=== PATIENT | female | born 1955 | race Caucasian/White ===

== ENCOUNTER 2016-08-18 14:36 | Outpatient (CLI) | payer MEDICAID | END 2016-08-18 14:37 | disposition home or self-care (01) | DX: S32.10XA Unspecified fracture of sacrum, initial encounter for closed fracture (principal); Z78.0 Asymptomatic menopausal state ==

== ENCOUNTER 2016-08-18 14:37 | Outpatient (CLI) | payer MEDICAID | END 2016-08-18 14:38 | disposition home or self-care (01) | DX: M47.896 Other spondylosis, lumbar region (principal); N28.1 Cyst of kidney, acquired; M54.5 Low back pain; M41.56 Other secondary scoliosis, lumbar region; S32.10XA Unspecified fracture of sacrum, initial encounter for closed fracture ==

== ENCOUNTER 2016-08-24 09:31 | Outpatient (CLI) | payer MEDICAID | END 2016-08-24 09:32 | disposition home or self-care (01) | DX: M54.5 Low back pain (principal) | CPT/HCPCS: 78306; A9503 ==

== ENCOUNTER 2016-11-23 23:11 | Outpatient (CLI) | payer MEDICAID | END 2016-11-23 23:59 | disposition EMS.NT | DX: F41.9 Anxiety disorder, unspecified (principal); M54.5 Low back pain ==

== ENCOUNTER 2016-11-24 08:47 | Outpatient (CLI) | payer MEDICAID | END 2016-11-24 08:48 | disposition EMS.NT | DX: M54.5 Low back pain (principal) ==

== ENCOUNTER 2016-11-24 08:57 | Emergency (ER) | payer MEDICAID | END 2016-11-24 11:02 | disposition left against medical advice (07) | DX: M54.9 Dorsalgia, unspecified (principal); Z53.21 Procedure and treatment not carried out due to patient leaving prior to being seen by health care provider ==

== ENCOUNTER 2016-12-25 11:42 | Emergency (ER) | payer MEDICAID ==
[2016-12-25] MEDS ORDERED: CALCIUM CARBONATE CHEW 500 MG TABLET PO STA (14:16)
[2016-12-25] MEDS ORDERED: CALCIUM CARBONATE CHEW 500 MG TABLET ONE (14:23)
[2016-12-25] MEDS ORDERED: GADOBUTROL 10 MMOL/10 ML VIAL IVP ONE (15:18)
[2016-12-25] MEDS ORDERED: DEXAMETHASONE 10 MG/ML VIAL IVP STA (16:44)
[2016-12-25] MEDS ORDERED: DEXAMETHASONE 10 MG/ML VIAL ONE (16:59)
== END 2016-12-25 17:20 | disposition home or self-care (01) ==
DX: C79.51 Secondary malignant neoplasm of bone (principal); M54.41 Lumbago with sciatica, right side; R03.0 Elevated blood-pressure reading, without diagnosis of hypertension; Z85.3 Personal history of malignant neoplasm of breast; Z90.10 Acquired absence of unspecified breast and nipple; Z92.3 Personal history of irradiation
CPT/HCPCS: 36415; 72158; 80048; 85025; 96374; 99283; 99284; A9270; A9585

== ENCOUNTER 2017-01-04 13:24 | Emergency (ER) | payer MEDICAID ==
--- NOTE | 2017-01-04 14:23 | ED Physician Documentation ---
PD HPI BACK PAIN - Stated complaint Stated Complaint: BACK PX,LUMP GROIN - Chief complaint Chief Complaint: Back Pain - History obtained from History obtained from: Patient - History of Present Illness Timing - onset: Yesterday (she has had ongoing back pain due to mets and had MRI last week to ensure no cord impingement. This was okay with showing mets. She fell yesterday and is having increased pain over baseline. No new neuro symptoms. Has also noted right inguinal lump that is tender.) Timing - duration: Days (1-2 days of increased pain.) Timing - details: Gradual onset (worse the past 2 days.), Still present Location: Lower Quality: Pain, Sharp, Aching Associated symptoms: Numbness (generally in legs but has been for few weeks.). 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 : None HEENT: None Psych: Anxiety Musculoskeletal: None Derm: None - Past Surgical History Past Surgical History: Yes General: Appendectomy /HUMAN RESOURCES BENEFITS COORDINATOR: Mastectomy - Present Medications Home Medications: Ambulatory Orders Medication Instructions Recorded Confirmed traMADol [Ultram] 50 mg PO Q4-6H PRN #15 tablet 12/25/16 01/04/17 Doxycycline Hyclate 100 mg PO BID #14 tablet 01/04/17 - Allergies Allergies/Adverse Reactions: Allergies Allergy/AdvReac Type Severity Reaction Status Date / Time epinephrine Allergy Unknown Verified 01/04/17 13:34 erythromycin base Allergy Unknown Verified 01/04/17 13:34 [Erythromycin Base] hydrocortisone Allergy Unknown Verified 01/04/17 13:34 [From Cortizone-10] lorazepam [From Ativan] Allergy Hallucinati Verified 01/04/17 13:34 ons Sulfa (Sulfonamide Allergy Unknown Verified 01/04/17 13:34 Antibiotics) trazodone Allergy Edema Verified 01/04/17 13:34 NSAIDS (Non-Steroidal AdvReac Unknown Verified 01/04/17 13:34 Anti-Inflamma - Social History Does the pt smoke?: No Smoking Status: Never smoker Does the pt drink ETOH?: No Does the pt have substance abuse?: No - Immunizations Immunizations are current?: Yes - POLST Patient has POLST: No PD ED PE NORMAL - Vitals Vital signs reviewed: Yes - General General: Alert and oriented X 3, Well developed/nourished, Other (appears in some pain but declines pain meds. ) - HEENT HEENT: Atraumatic - Neck Neck: Supple, no meningeal sign, No bony TTP, No adenopathy - Cardiac Cardiac: RRR, No murmur - Respiratory Respiratory: Clear bilaterally - Abdomen Abdomen: Normal bowel sounds, Soft, Non tender, Non distended - Female Female : Deferred - Rectal Rectal: Deferred - Back Back: No CVA TTP, Other (lower lockstitch back maker to palpation generally and in spine. ) - Derm Derm: Normal color, Warm and dry, Other (right inguinal area with small area of inflammation, redness, and tender. C/w small abscess about 1 cm size, confirmed with U/S. ) - Neuro Neuro: Alert and oriented X 3, No motor deficit, No sensory deficit, Normal speech Results - Vitals Vitals: Oxygen O2 Source Room air - Labs Labs: Microbiology 01/04/17 15:28 Wound Culture - Final Abdomen Escherichia Coli Morganella Morganii Ssp.meli - Rads (name of study) lumbar CT Radiology: Prelim report reviewed (mets seen as prior. No fractures seen. ) Procedures - Abscess I&D (location) right inguinal Preparation: Confirmed with ultrasound, Lidocaine 1%. No: With epi Incision: Needle aspiration Other: Pt tolerated well, Dressing applied, Antibiotic prescribed PD MEDICAL DECISION MAKING - ED course Complexity details: reviewed results (CT showing no signs of new fractures. inguinal area aspirated with purulence 2.5 ml obtained. Will start abx pending culture. ), considered differential, d/w patient Departure - Departure Disposition: 01 Home, Self Care Clinical Impression: Metastatic breast cancer, Inguinal abscess Back pain Qualifiers: Back pain location: low back pain Chronicity: chronic Back pain laterality: bilateral Sciatica presence: without sciatica Qualified Code(s): M54.5 - Low back pain Accidental fall Qualifiers: Encounter type: initial encounter Qualified Code(s): W19.XXXA - Unspecified fall, initial encounter Condition: Stable Record reviewed to determine appropriate education?: Yes Instructions: ED Abscess IandD, ED Low Back Pain Injury Follow-Up: Arnel Head MD [Primary Care Provider] - Prescriptions: Doxycycline Hyclate 100 mg PO BID #14 tablet Comments: Continue Tramadol for pain, add Tylenol 650 mg 3-4 times daily. For the groin abscess, see if it gets better over the next 1-2 days with just draining it. If it stays tender,etc then add Doxycycline antibiotic. Warm compresses to the area a few times daily to help promote blood flow to the area for healing. Discharge Date/Time: 01/04/17 17:30
[2017-01-04] MEDS ORDERED: LIDOCAINE 1% 50 ML MDV SUBQ STA (14:58)
[2017-01-04] MEDS ORDERED: LIDOCAINE 1% 2 ML VIAL ONE ×2 (15:08→16:06)
[2017-01-04] MEDS ORDERED: cefTRIAXone 1 GM VIAL IM STA (15:38)
[2017-01-04] MEDS ORDERED: cefTRIAXone 1 GM VIAL ONE (16:06)
--- NOTE | 2017-01-04 16:46 | CT Report ---
EXAM: CT LUMBAR SPINE WITHOUT CONTRAST EXAM DATE: 01/04/2017 03:55 PM. CLINICAL HISTORY: Recent fall, worsening back pain. Metastatic breast cancer. COMPARISONS: Prior lumbar CT 09/11/2016. Lumbar MRI 12/25/2016. TECHNIQUE: Thin-section axial images were acquired of the lumbar spine from T12 to S1 without contras t. Post-processing: Coronal and sagittal reformats. Other: None. In accordance with CT protocol optimization, one or more of the following dose reduction techniques w ere utilized for this exam: automated exposure control, adjustment of mA and/or KV based on patient s ize, or use of iterative reconstructive technique. FINDINGS: Alignment: Mild thoracolumbar curvature convex right. 2 mm posterior subluxation L1 on L2 unchanged. Otherwise normal alignment. Bones: Five [id number] lumbar vertebral bodies are present. Sclerotic focus at the upper anterio r aspect of L1 is unchanged. New 5 mm sclerotic lesion within the upper left aspect of the L2 vertebr al body. Previously seen lesion at the right anterolateral aspect of the L2 vertebral body is now scl erotic measuring approximately 2.3 x 1.2 x 2.6 cm, unchanged in size. The previously seen predominant ly lytic lesion involving the L3 left posterolateral aspect of the vertebral body, pedicle, articular facets and left transverse process isn't now predominantly sclerotic. Overall size of the lesion and degree of bone expansion of the left-sided posterior elements unchanged. New 4 mm sclerotic lesion a t the anterior right aspect of the L4 vertebral body. New 5 mm and 3 mm adjacent sclerotic lesions at the anterior aspect of the L5 vertebral body. New sclerotic lesions at the upper midline sacrum nick ure 3.5 and 5 mm diameter. New sclerotic lesion at the upper left sacral ala 8 mm. Previously seen ly tic lesions on both sides of the upper right sacroiliac joint now sclerotic in appearance. Degenerati ve sclerotic change at the left sacroiliac joint. Large partially visualized expansile predominantly sclerotic lesion involving the right ilium also demonstrates increased sclerotic change compared to t he prior pelvis CT. Disk Levels/Facets: T12-L1: Annual disk bulge. Mild central canal stenosis. L1-L2: Mild retrolisthesis. Annular disk bulge. Mild central canal stenosis. L2-L3: Slight annular disk bulge. Mild facet arthropathy. No significant stenosis. L3-L4: Mild bilateral degenerative facet arthropathy. Annular disk bulge. Mild central canal stenosis . Mild left foraminal stenosis. L4-L5: Annular disk bulge. Moderate degenerative facet arthropathy. L5-S1: Previous posterior decompression. Moderate right greater than left degenerative facet arthropa thy. Moderate right foraminal stenosis. Musculature: Mild atrophy of the lower paraspinous musculature. Other: A pelvic kidney with associated large central cyst or dilated renal pelvis not appreciably reina nged from recent MRI, only partially visualized. IMPRESSION: 1. Interval increase in number of sclerotic lesions consistent with progression of bony metastatic di sease compared to prior CT. 2. Some of the previously seen larger lytic lesions now appear mostly sclerotic which may represent s ome healing change. 3. No discrete fracture identified by CT. [facility] Referring Provider Line: [phone] SITE ID: [id number]
[2017-01-04 17:43] VITALS: BP 136/89
== END 2017-01-04 17:30 | disposition home or self-care (01) ==
LOC: ED 13:24
DX: L02.214 Cutaneous abscess of groin (principal); C79.81 Secondary malignant neoplasm of breast; M54.5 Low back pain; W01.0XXA Fall on same level from slipping, tripping and stumbling without subsequent striking against object, initial encounter; K21.9 Gastro-esophageal reflux disease without esophagitis
CPT/HCPCS: 10160; 72131; 87070; 87077; 87205; 96372; 99283; 99284

== ENCOUNTER 2017-01-06 17:22 | Emergency (ER) | payer MEDICAID ==
[2017-01-06] MEDS ORDERED: BUFFERED LIDOCAINE 10 ML SYRINGE ONE (17:42)
--- NOTE | 2017-01-06 17:56 | ED Physician Documentation ---
History of Present Illness - Stated complaint Stated Complaint: HIP ABCESS - Chief complaint Chief Complaint: General - History obtained from History obtained from: Patient - History of Present Illness Timing: Other (61-year-old woman with metastatic breast cancer, status post radiation to the lumbar spine 5 weeks ago, seen here a few days ago with an inguinal abscess that was needle aspirated. Culture reviewed, 2 organisms. She feels like she is worse. 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 : None HEENT: None Psych: Anxiety Musculoskeletal: None Derm: None - Past Surgical History Past Surgical History: Yes General: Appendectomy /TEXTILES PRINTER: Mastectomy - Present Medications Home Medications: Ambulatory Orders Medication Instructions Recorded Confirmed traMADol [Ultram] 50 mg PO Q4-6H PRN #15 tablet 12/25/16 01/06/17 Doxycycline Hyclate 100 mg PO BID #14 tablet 01/04/17 01/06/17 - Allergies Allergies/Adverse Reactions: Allergies Allergy/AdvReac Type Severity Reaction Status Date / Time epinephrine Allergy Unknown Verified 01/04/17 13:34 erythromycin base Allergy Unknown Verified 01/04/17 13:34 [Erythromycin Base] hydrocortisone Allergy Unknown Verified 01/04/17 13:34 [From Cortizone-10] lorazepam [From Ativan] Allergy Hallucinati Verified 01/04/17 13:34 ons Sulfa (Sulfonamide Allergy Unknown Verified 01/04/17 13:34 Antibiotics) trazodone Allergy Edema Verified 01/04/17 13:34 NSAIDS (Non-Steroidal AdvReac Unknown Verified 01/04/17 13:34 Anti-Inflamma - Social History Does the pt smoke?: No Smoking Status: Never smoker Does the pt drink ETOH?: No Does the pt have substance abuse?: No - Immunizations Immunizations are current?: Yes - POLST Patient has POLST: No PD ED PE NORMAL - Vitals Vital signs reviewed: Yes - General General: Alert and oriented X 3, No acute distress - Derm Derm: Other (2 cm pointed abscess in the right inguinal crease without cellulitis.) - Neuro Neuro: Alert and oriented X 3, Normal speech - Psych Psych: Normal mood, Normal affect Results - Vitals Vitals: Vital Signs - 24 hr 01/06/17 17:30 Temperature 36.6 C Heart Rate 59 L Respiratory 14 Rate Blood Pressure 146/86 H O2 Saturation 100 Oxygen O2 Source Room air Procedures - Abscess I&D (location) rright inguinal Preparation: Chlorhexadine, Lidocaine 1% Incision: Incised with scalpel, Purulent drainage, Loculations broken. No: Culture obtained (Already done) Other: Pt tolerated well. No: Antibiotic prescribed (doesn't want to) Departure - Departure Disposition: Home, Self Care Clinical Impression: Inguinal abscess Condition: Good Record reviewed to determine appropriate education?: Yes Instructions: ED Abscess IandD Comments: Return Sunday for recheck, sooner if worse. Your blood pressure was elevated today on check in to the emergency department. This does not mean that you have hypertension, it is a common phenomenon to check into the emergency department and have elevated blood pressure. I recommend that you see your primary care physician within the week to have it rechecked when you're feeling better.
[2017-01-06 18:02] VITALS: BP 148/83
== END 2017-01-06 18:11 | disposition home or self-care (01) ==
LOC: ED 17:22
DX: L02.214 Cutaneous abscess of groin (principal); C79.81 Secondary malignant neoplasm of breast; R03.0 Elevated blood-pressure reading, without diagnosis of hypertension; K21.9 Gastro-esophageal reflux disease without esophagitis
CPT/HCPCS: 10060; 99283

== ENCOUNTER 2017-01-06 21:09 | Outpatient (CLI) | payer MEDICAID | END 2017-01-06 21:10 | disposition EMS.NT | LOC: EMS 21:09 | PROVIDERS: ATTEND Surgery | DX: R53.1 Weakness (principal); R00.0 Tachycardia, unspecified; W18.39XA Other fall on same level, initial encounter; Y93.E1 Activity, personal bathing and showering; Y92.031 Bathroom in apartment as the place of occurrence of the external cause ==

== ENCOUNTER 2017-01-08 12:03 | Emergency (ER) | payer MEDICAID ==
--- NOTE | 2017-01-08 13:15 | ED Physician Documentation ---
PD HPI SKIN - Stated complaint Stated Complaint: FOLLOW UP TO GROIN ABSCESS - Chief complaint Chief Complaint: Wound - History obtained from History obtained from: Patient - History of Present Illness Timing - onset: Other (Here for recheck of groin abscess, overall from that perspective she is doing better with continued drainage and less pain. Also has concerns about generalized weakness since radiation to the spine a few weeks ago with 2 falls at home. No significant injuries though, it was seen here after the first fall and had imaging of her spine which was negative. 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 : None HEENT: None Psych: Anxiety Musculoskeletal: None Derm: None - Past Surgical History Past Surgical History: Yes General: Appendectomy /SUPERVISOR PIGMENT MAKING: Mastectomy - Present Medications Home Medications: Ambulatory Orders Medication Instructions Recorded Confirmed traMADol [Ultram] 50 mg PO Q4-6H PRN #15 tablet 12/25/16 01/08/17 Shower Head/Seat 1 unit TD ONCE #1 01/08/17 Walker 1 each MC ONCE #1 each 01/08/17 - Allergies Allergies/Adverse Reactions: Allergies Allergy/AdvReac Type Severity Reaction Status Date / Time epinephrine Allergy Unknown Verified 01/08/17 12:16 erythromycin base Allergy Unknown Verified 01/08/17 12:16 [Erythromycin Base] hydrocortisone Allergy Unknown Verified 01/08/17 12:16 [From Cortizone-10] lorazepam [From Ativan] Allergy Hallucinati Verified 01/08/17 12:16 ons Sulfa (Sulfonamide Allergy Unknown Verified 01/08/17 12:16 Antibiotics) trazodone Allergy Edema Verified 01/08/17 12:16 NSAIDS (Non-Steroidal AdvReac Unknown Verified 01/08/17 12:16 Anti-Inflamma - Social History Does the pt smoke?: No Smoking Status: Never smoker Does the pt drink ETOH?: No Does the pt have substance abuse?: No - Immunizations Immunizations are current?: Yes - POLST Patient has POLST: No PD ED PE NORMAL - Vitals Vital signs reviewed: Yes - General General: Alert and oriented X 3, No acute distress - Abdomen Abdomen: Soft, Non tender - Female Female : Other (Right inguinal abscess is open and still draining, it was much smaller and the incision was getting smaller so I did pack it with quarter- inch packing during exam. No cellulitis.) - Back Back: No CVA TTP, No spinal TTP - Extremities Extremities: Other (The patient has equal and normal patellar and Achilles reflexes bilaterally. Normal sensation in all areas of the legs. Patient denies saddle anesthesia. Normal strength in flexion and extension at the ankles, knees and flexion of the hips.) - Neuro Neuro: Alert and oriented X 3, Normal speech - Psych Psych: Normal mood, Normal affect Results - Vitals Vitals: Vital Signs - 24 hr 01/08/17 12:15 Temperature 36.6 C Heart Rate 98 Respiratory 14 Rate Blood Pressure 127/88 H O2 Saturation 100 Oxygen O2 Source Room air PD MEDICAL DECISION MAKING - ED course ED course: Abscess was packed, but overall is doing better. Follow up continued was advised. We will have her see the social security assessor and she needed a prescription for a shower head and a walker which were done. Departure - Departure Disposition: 01 Home, Self Care Clinical Impression: Inguinal abscess, Metastatic breast cancer, Weakness Accidental fall Qualifiers: Encounter type: initial encounter Qualified Code(s): W19.XXXA - Unspecified fall, initial encounter Condition: Good Record reviewed to determine appropriate education?: Yes Instructions: ED Abscess IandD Prescriptions: Shower Head/Seat 1 unit TD ONCE #1 Walker 1 each MC ONCE #1 each Comments: Recheck here or with your pinion sorter in 2-3 days. BP recheck with your primary care at next visit.
[2017-01-08 14:36] VITALS: BP 121/67
== END 2017-01-08 14:36 | disposition home or self-care (01) ==
LOC: ED 12:03
DX: L02.214 Cutaneous abscess of groin (principal); C79.81 Secondary malignant neoplasm of breast; R53.1 Weakness; K21.9 Gastro-esophageal reflux disease without esophagitis
CPT/HCPCS: 99282; 99283

== ENCOUNTER 2017-02-21 13:27 | Outpatient (CLI) | payer MEDICAID | END 2017-02-21 13:28 | disposition critical access hospital (66) | LOC: EMS 13:27 | PROVIDERS: ATTEND Surgery | DX: M54.5 Low back pain (principal) | CPT/HCPCS: A0425; A0429 ==

== ENCOUNTER 2017-02-21 13:32 | Emergency (ER) | payer MEDICAID ==
[2017-02-21] MEDS ORDERED: ACETAMINOPHEN 1,000 MG/100 ML 100 ML IV STA (14:09)
[2017-02-21] MEDS ORDERED: LIDOCAINE PATCH 5% TOP STA (14:09)
--- NOTE | 2017-02-21 14:16 | ED Physician Documentation ---
History of Present Illness - Stated complaint Stated Complaint: LOW BACK PX - Chief complaint Chief Complaint: Back Pain - Additonal information Additional information: hx from pt 61 female known metastatic breast cancer with mets to spine and pelvis has had radiation tx for same 2 m ago also txed with decadron for pain for mets after the radiation but that caused profound weakness does not want to take narcotics tramadol made her confused only taking tylenol pain is acutely worse x 3 days as is numbness ands weakness RLE > LLE no incontinence no fever no abd pain no new fall or injury to ppt these sx she would like info about nerve block injections by anesthesia Review of Systems Constitutional: denies: Fever, Chills Throat: denies: Sore throat Cardiac: denies: Chest pain / pressure GI: denies: Abdominal Pain, Nausea, Vomiting : denies: Incontinent Musculoskeletal: reports: Back pain Neurologic: reports: Focal weakness (sara LE R > L), Numbness (RLE diffusely). 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 HEENT: None Psych: Anxiety Musculoskeletal: None Derm: None - Past Surgical History Past Surgical History: Yes General: Appendectomy /DRIP BOX TENDER: Mastectomy - Present Medications Home Medications: Ambulatory Orders Medication Instructions Recorded Confirmed Shower Head/Seat 1 unit TD ONCE #1 01/08/17 01/30/17 Walker 1 each MC ONCE #1 each 01/08/17 01/30/17 Gabapentin [Neurontin] 300 mg PO HS #30 capsule 02/21/17 Lidocaine Patch 5% [Lidoderm Patch] 1 each TOP DAILY PRN #10 patch 02/21/17 - Allergies Allergies/Adverse Reactions: Allergies Allergy/AdvReac Type Severity Reaction Status Date / Time epinephrine Allergy Unknown Verified 01/08/17 12:16 erythromycin base Allergy Unknown Verified 01/08/17 12:16 [Erythromycin Base] hydrocortisone Allergy Unknown Verified 01/08/17 12:16 [From Cortizone-10] lorazepam [From Ativan] Allergy Hallucinati Verified 01/08/17 12:16 ons Sulfa (Sulfonamide Allergy Unknown Verified 01/08/17 12:16 Antibiotics) trazodone Allergy Edema Verified 01/08/17 12:16 NSAIDS (Non-Steroidal AdvReac Unknown Verified 01/08/17 12:16 Anti-Inflamma - Social History Does the pt smoke?: No Smoking Status: Never smoker Does the pt drink ETOH?: No Does the pt have substance abuse?: No - Immunizations Immunizations are current?: Yes - POLST Patient has POLST: No PD ED PE NORMAL - Vitals Vital signs reviewed: Yes - General General: Alert and oriented X 3, Other (tearful in pain) - HEENT HEENT: PERRL - Cardiac Cardiac: RRR - Respiratory Respiratory: No respiratory distress, Clear bilaterally - Abdomen Abdomen: Soft, Non tender - Back Back: Other (no focal bony TTP, very TTP low right lumbar pelvis region, no deformity swelling or warmth, able to sit up unassisted) - Extremities Extremities: No calf tenderness / cord (sara ccalves swollen and tender (X 3 weeks per pt, no eval yet)) - Neuro Neuro: Alert and oriented X 3, No motor deficit (hip flex 1/5 R 3/5 left partly due to pain, denies saddle anesthesia but RLE diffusely weak, no clonus). No: No sensory deficit Results - Vitals Vitals: Vital Signs - 24 hr 02/21/17 02/21/17 13:38 15:18 Temperature 36.8 C Heart Rate 95 85 Respiratory 18 20 Rate Blood Pressure 136/82 H 143/75 H O2 Saturation 96 100 Oxygen O2 Source Room air - Labs Labs: Laboratory Tests 02/21/17 17:05 Sodium 138 Potassium 3.2 L Chloride 102 Carbon Dioxide 26 Anion Gap 10.0 BUN 25 H Creatinine 0.7 Estimated GFR (MDRD) 85 L Glucose 238 H Calcium 9.6 - Rads (name of study) CT L spine and pelvis Radiology: See rad report (inc sclerosis and healing met focus L3, new areas sclerosis T10 L2 L4 L5 S1 S2 could be form prior now visble or could be progression of met dz) sara LE dopplers Radiology: See rad report (no DVT) PD MEDICAL DECISION MAKING - ED course ED course: spoke to pts oncologist Dr Bahena and she will submit pain and palliative care consults next week or pt can call [facility] and speak to Syed Guaman sooner and rec trying pt on gabapentin if she is reluctant to try narcotics recent MRI showed no intra dural or epidrual dz and no cauda equina Departure - Departure Disposition: 01 Home, Self Care Clinical Impression: Metastatic breast cancer Back pain Qualifiers: Back pain location: low back pain Chronicity: chronic Back pain laterality: bilateral Sciatica presence: without sciatica Qualified Code(s): M54.5 - Low back pain; G89.29 - Other chronic pain Condition: Good Instructions: Bone Metastasis, ED Neck Back Pain General Follow-Up: Nikolas Bahena MD [Primary Care Provider] - Prescriptions: Lidocaine Patch 5% [Lidoderm Patch] 1 each TOP DAILY PRN #10 patch PRN Reason: Pain Gabapentin [Neurontin] 300 mg PO HS #30 capsule Comments: I spoke to your oncologist She will submit consults for recommendation regarding your pain next week - you can also call the [facility] and speak to the nurse rate manager there regarding these consults. In the meantime, oncology recommends trying gabapentin for the pain and I also prescribed lidocaine patches Your chemistry labs were Ok except slightly low potassium which was replaced and an elevated blood sugar which could be due to your recent steroids - please make sure your sugar gets rechecked the next time you have labs drawn Try debrox available over the counter for your ear wax And please get your blood pressure rechecked too - it was high today
[2017-02-21] MEDS ORDERED: ACETAMINOPHEN 1,000 MG/100 ML 100 ML IV ONE (14:47)
[2017-02-21] MEDS ORDERED: LIDOCAINE PATCH 5% TOP ONE (14:47)
--- NOTE | 2017-02-21 15:42 | CT Preliminary Report ---
Exam: CT Pelvis W/O IMPRESSION: 1. Stable appearance of metastatic bone lesions at the pelvis and proximal femurs. No acute fracture. [facility] SITE ID: [id number]
--- NOTE | 2017-02-21 15:44 | CT Report ---
EXAM: CT BONY PELVIS WITHOUT CONTRAST EXAM DATE: 02/21/2017 03:05 PM. CLINICAL HISTORY: Metastatic bone disease. Breast cancer. Pelvic pain. Right lower extremity pain and weakness. COMPARISON: Pelvis MRI from 02/08/2017. TECHNIQUE: Thin-section axial images were acquired of the pelvis without contrast. Post-processing: C oronal and sagittal reformats. Other: None. In accordance with CT protocol optimization, one or more of the following dose reduction techniques w ere utilized for this exam: automated exposure control, adjustment of mA and/or KV based on patient s ize, or use of iterative reconstructive technique. FINDINGS: Degenerative facet arthropathy of the visualized lower lumbar spine. Stable small sclerotic lesions at L4 and L5 vertebral body. Stable sclerotic lesions at the upper sac rum. Stable sclerotic lesion at the posterior medial aspect of the right iliac bone. Stable sclerotic mildly expansile lesion at the right iliac bone which extends in the right acetabulum, right issue h im, and right pubic bone. Stable sclerotic lesions at the left iliac bone, ischial, and pubic bone. S table lesion at the left femoral head and intertrochanteric portion of the proximal left femur. Stabl e sclerotic lesion of the right femoral neck. No acute fracture. Musculature: Normal. No fatty atrophy. Pelvic Cavity: As seen on the previous study, the left kidney is located at the midline pelvis. There is a large cyst or dilated pelvis at the pelvic kidney which is unchanged. No free fluid or lymphade nopathy. Other: No lymphadenopathy. No free air or free fluid. The other visualized soft tissues are unremarka ble. IMPRESSION: 1. Stable appearance of metastatic bone lesions at the pelvis and proximal femurs. No acute fracture. [facility] Referring Provider Line: [phone] SITE ID: [id number]
--- NOTE | 2017-02-21 16:03 | CT Preliminary Report ---
Exam: CT Lumbar Spine W/O IMPRESSION: 1. Since a comparison study, increase in sclerosis and healing of the metastatic focus involving the expanded left L3 transverse process. L3 vertebral body posteriorly also shows some increased density and sclerosis indicating some healing. 2. New focal areas of abnormal punctate sclerosis are seen at T10, L2, L4, L5, S1 and S2. These areas visualized sclerosis are probably areas of treated disease which are more easily seen compared to th e prior exam. This can also be secondary to progression of metastatic disease. [facility] SITE ID: [id number]
[2017-02-21] MEDS ORDERED: ONDANSETRON 4 MG/2 ML VIAL IVP STA (16:11)
[2017-02-21] MEDS ORDERED: HYDROmorphone 1 MG/ML SYRINGE IVP STA (16:11)
--- NOTE | 2017-02-21 16:26 | Ultrasound Preliminary Report ---
Exam: US Duplex Ext Veins Bilateral IMPRESSION: No evidence for deep venous thrombosis bilaterally. [facility] SITE ID: [id number]
--- NOTE | 2017-02-21 16:29 | Ultrasound Report ---
EXAM: BILATERAL LOWER EXTREMITY VENOUS ULTRASOUND EXAM DATE: 02/21/2017 04:08 PM. CLINICAL HISTORY: Bilateral lower extremity swelling pain discolor metastatic cancer. COMPARISON: None. TECHNIQUE: Real-time sonographic vascular imaging was performed by the sas bi developer through the lower extremities utilizing both color-flow and Doppler spectral analysis. Multiple scheduling representative static i mages were saved for review. FINDINGS: Right: Common Femoral Vein (CFV): Normal. CFV-GSV Junction: Normal. Profunda Femoral Vein (PFV): Normal. Femoral Vein (FV) Prox: Normal. Femoral Vein (FV) Mid: Normal. Femoral Vein (FV) Dist: Normal. Popliteal Vein: Normal. Posterior Tibial Veins: Normal. Peroneal Veins: Normal. Left: Common Femoral Vein (CFV): Normal. CFV-GSV Junction: Normal. Profunda Femoral Vein (PFV): Normal. Femoral Vein (FV) Prox: Normal. Femoral Vein (FV) Mid: Normal. Femoral Vein (FV) Dist: Normal. Popliteal Vein: Normal. Posterior Tibial Veins: Normal. Peroneal Veins: Normal. Other: None. IMPRESSION: No evidence for deep venous thrombosis bilaterally. [facility] Referring Provider Line: [phone] SITE ID: [id number]
--- NOTE | 2017-02-21 16:29 | CT Report ---
EXAM: CT LUMBAR SPINE WITHOUT CONTRAST EXAM DATE: 02/21/2017 02:42 PM. CLINICAL HISTORY: Known metastatic breast cancer mets to spine and pelvis. COMPARISONS: CT study from 09/11/2016. TECHNIQUE: Thin-section axial images were acquired of the lumbar spine from T12 to S1 without contras t. Post-processing: Coronal and sagittal reformats. Other: None. In accordance with CT protocol optimization, one or more of the following dose reduction techniques w ere utilized for this exam: automated exposure control, adjustment of mA and/or KV based on patient s ize, or use of iterative reconstructive technique. FINDINGS: Alignment: Normal. No scoliosis or spondylolisthesis. Bones: Five fku-goo-nutnsip lumbar vertebral bodies are present. Since the comparison study, there has been some increased sclerosis and healing of a metastatic focus involving the expanded left L3 transverse process. The L3 vertebral body posteriorly also shows some increased sclerosis, indicating some healing is occurring. Please also note that there are new areas of abnormal punctate sclerosis involving T10, L2, L4, L5, S 1 and S2. These are best seen on the sagittals. No evidence for pathologic fractures. Disk Levels/Facets: T12-L1: Unremarkable. L1-L2: Unremarkable. L2-L3: Prominent facets. No central or foraminal stenosis. L3-L4: Prominent facets, broad-based disk bulge and ligamentum flavum. Moderate central stenosis. No foraminal narrowing. L4-L5: Hypertrophic facets and ligament flavum, broad-based disk bulge. Moderate central stenosis. L5-S1: Broad-based disk bulge. Prominent facets. Musculature: Moderate fatty atrophy of the multifidus musculature. Other: The visualized pelvic cavity is unremarkable. IMPRESSION: 1. Since the comparison study, increase in sclerosis and healing of the metastatic focus involving th e expanded left L3 transverse process. L3 vertebral body posteriorly also shows some increased densit y and sclerosis indicating some healing. 2. New focal areas of abnormal punctate sclerosis are seen at T10, L2, L4, L5, S1 and S2. These areas of visualized sclerosis are probably areas of treated disease which are more easily seen compared to the prior exam. This could also be secondary to progression of metastatic disease. [facility] Referring Provider Line: [phone] SITE ID: [id number]
[2017-02-21] MEDS ORDERED: CYCLOBENZAPRINE 10 MG TABLET PO STA (16:39)
[2017-02-21] MEDS ORDERED: CYCLOBENZAPRINE 10 MG TABLET PO ONE (16:41)
[2017-02-21 17:18] LABS: CALCIUM 9.6 mg/dL (8.5-10.3); CREATININE 0.7 mg/dL (0.4-1.0); POTASSIUM 3.2 mmol/L (3.5-5.0)
[2017-02-21] MEDS ORDERED: POTASSIUM CHLORIDE 20 MEQ TABLET PO STA (18:34)
[2017-02-21] MEDS ORDERED: GABAPENTIN 100 MG CAPSULE PO STA (18:34)
[2017-02-21] MEDS ORDERED: LIDOCAINE MPF 1%-EPI 1:200000 30 ML VIAL ONE (18:43)
[2017-02-21] MEDS ORDERED: POTASSIUM CHLORIDE 20 MEQ TABLET PO ONE (18:48)
[2017-02-21 19:00] VITALS: BP 150/79
== END 2017-02-21 19:04 | disposition home or self-care (01) ==
LOC: EDUNIT# → ED 13:32
DX: M54.5 Low back pain (principal); G89.29 Other chronic pain; E87.6 Hypokalemia; R73.9 Hyperglycemia, unspecified; R03.0 Elevated blood-pressure reading, without diagnosis of hypertension; C50.919 Malignant neoplasm of unspecified site of unspecified female breast; C79.51 Secondary malignant neoplasm of bone; C79.89 Secondary malignant neoplasm of other specified sites; Z90.10 Acquired absence of unspecified breast and nipple
CPT/HCPCS: 36415; 72131; 72192; 80048; 93970; 96374; 99283; 99284; A9270; J0131

== ENCOUNTER 2017-02-22 18:17 | Outpatient (CLI) | payer MEDICAID | END 2017-02-22 18:18 | disposition critical access hospital (66) | LOC: EMS 18:17 | PROVIDERS: ATTEND Surgery | DX: M25.551 Pain in right hip (principal); M54.9 Dorsalgia, unspecified; W18.39XA Other fall on same level, initial encounter; Y92.039 Unspecified place in apartment as the place of occurrence of the external cause | CPT/HCPCS: A0425; A0429 ==

== ENCOUNTER 2017-02-22 18:21 | Emergency (ER) | payer MEDICAID ==
--- NOTE | 2017-02-22 19:27 | XRAY Preliminary Report ---
Exam: XR Hip w/Pelvis 2-3V RT IMPRESSION: Sclerotic metastases. No fracture seen. [facility] SITE ID: [id number]
--- NOTE | 2017-02-22 19:29 | XRAY Report ---
EXAM: RIGHT HIP AND PELVIS RADIOGRAPHY EXAM DATE: 02/22/2017 07:16 PM. HISTORY: Mets to bones, fell. COMPARISONS: 09/11/[address] TECHNIQUE: 1 view of the pelvis and 1 view of the hip. FINDINGS: Bones: Areas of sclerotic metastases seen throughout the pelvis and both hips. No fracture seen. Joints: The bilateral hip, pubis symphysis, and sacroiliac joints are preserved. Soft Tissues: Normal. No soft tissue swelling. IMPRESSION: Sclerotic metastases. No fracture seen. [facility] Referring Provider Line: [phone] SITE ID: [id number]
--- NOTE | 2017-02-22 20:26 | ED Physician Documentation ---
History of Present Illness - Stated complaint Stated Complaint: R HIP PN - Chief complaint Chief Complaint: Ext Problem - Additonal information Additional information: hx from pt 61 f breast cancer mets to bone had radiation tx for same had MRI last week seen by me for pain yesterday and had CT case discussed witrh her oncologist who will submit a pain management consult next week and recommended pt take gabapentin pt given rx for gabapentin but did not fill it yet tonight she set her dinner down on the couch and then fell over backwards striking right lateral hip on corner of a chest pain to R hip did hit her head but not PAZ or LOC, has right sided but no bony neck pain able to ambulate BIBA pt states she uses her walker but EMS states walker was folded up in her closet Review of Systems Cardiac: denies: Chest pain / pressure GI: denies: Abdominal Pain Musculoskeletal: reports: Neck pain (R side), Joint pain (R hip) Neurologic: denies: Focal weakness, Numbness PD PAST MEDICAL HISTORY - Past Medical History Cardiovascular: None Respiratory: None Neuro: None Endocrine/Autoimmune: None GI: GERD 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 : None HEENT: None Psych: Anxiety Musculoskeletal: None Derm: None - Past Surgical History Past Surgical History: Yes General: Appendectomy /WASH TANK TENDER: Mastectomy - Present Medications Home Medications: Ambulatory Orders Medication Instructions Recorded Confirmed Shower Head/Seat 1 unit TD ONCE #1 01/08/17 01/30/17 Walker 1 each MC ONCE #1 each 01/08/17 01/30/17 Gabapentin [Neurontin] 300 mg PO HS #30 capsule 02/21/17 Lidocaine Patch 5% [Lidoderm Patch] 1 each TOP DAILY PRN #10 patch 02/21/17 - Allergies Allergies/Adverse Reactions: Allergies Allergy/AdvReac Type Severity Reaction Status Date / Time epinephrine Allergy Unknown Verified 01/08/17 12:16 erythromycin base Allergy Unknown Verified 01/08/17 12:16 [Erythromycin Base] hydrocortisone Allergy Unknown Verified 01/08/17 12:16 [From Cortizone-10] lorazepam [From Ativan] Allergy Hallucinati Verified 01/08/17 12:16 ons Sulfa (Sulfonamide Allergy Unknown Verified 01/08/17 12:16 Antibiotics) trazodone Allergy Edema Verified 01/08/17 12:16 NSAIDS (Non-Steroidal AdvReac Unknown Verified 06/05/17 12:16 Anti-Inflamma - Social History Does the pt smoke?: No Smoking Status: Never smoker Does the pt drink ETOH?: No Does the pt have substance abuse?: No - Immunizations Immunizations are current?: Yes - POLST Patient has POLST: No PD ED PE NORMAL - Vitals Vital signs reviewed: Yes - General General: Alert and oriented X 3 - HEENT HEENT: Atraumatic - Neck Neck: No bony TTP - Cardiac Cardiac: RRR - Respiratory Respiratory: No respiratory distress, Clear bilaterally - Abdomen Abdomen: Soft, Non tender - Extremities Extremities: Other (TTP lateral R hip no bruise seen, not short or rotated, able to range, MSV intact) Results - Vitals Vitals: Vital Signs - 24 hr 02/22/17 02/22/17 18:26 19:50 Temperature 36.8 C Heart Rate 87 89 Respiratory 18 16 Rate Blood Pressure 132/85 H 133/84 H O2 Saturation 100 100 Oxygen O2 Source Room air PD MEDICAL DECISION MAKING - ED course ED course: pt declines narcotics declines gabapentin would like ofirmev again pt has many questions "what did my MRI show " "why are my legs weak" "what are the side effects of steroids and gabapentin" etc but when i try to answer them she says "but my oncologist said . . . " and when I asked if she had filled my gabapentin rx she said no but the gabapentin her oncologist prescribed 2 months ago is still ready for her at the store she is worried about being weak but does not want to go to assisted living or rehab SNF, she has already met with about these issues in any case no fx seen, she feels better, she has rx for pain and I provided her a copy of her MRi to help answer her concerns and questions [facility] Departure - Departure Disposition: 01 Home, Self Care Clinical Impression: Right hip pain, Metastatic breast cancer, Weakness Fall Qualifiers: Encounter type: initial encounter Qualified Code(s): W19.XXXA - Unspecified fall, initial encounter Condition: Fair Instructions: ED Prevention Fall, ED Contusion Hip Follow-Up: Nikolas Bahena MD [Primary Care Provider] - Comments: Take the medication as prescribed by your oncologist Always use your walker Follow up with the [facility] clinic for the pain management referral Please get your blood pressure rechecked as well - it was high today
[2017-02-22] MEDS ORDERED: ACETAMINOPHEN 1,000 MG/100 ML 100 ML IV STA (20:31)
[2017-02-22] MEDS ORDERED: ACETAMINOPHEN 1,000 MG/100 ML 100 ML IV ONE (20:32)
[2017-02-22 21:37] VITALS: BP 145/74
== END 2017-02-22 21:34 | disposition home or self-care (01) ==
LOC: EDUNIT# → ED 18:21
DX: C50.919 Malignant neoplasm of unspecified site of unspecified female breast (principal); C79.51 Secondary malignant neoplasm of bone; R53.1 Weakness; W19.XXXA Unspecified fall, initial encounter; K21.9 Gastro-esophageal reflux disease without esophagitis
CPT/HCPCS: 73502; 96365; 99283; J0131

== ENCOUNTER 2017-03-05 12:54 | Outpatient (CLI) | payer MEDICAID | END 2017-03-05 12:55 | disposition critical access hospital (66) | LOC: EMS 12:54 | PROVIDERS: ATTEND Surgery | DX: M79.606 Pain in leg, unspecified (principal) | CPT/HCPCS: A0425; A0429 ==

== ENCOUNTER 2017-03-05 12:57 | Emergency (ER) | payer MEDICAID ==
--- NOTE | 2017-03-05 14:20 | ED Physician Documentation ---
History of Present Illness - Stated complaint Stated Complaint: LEG NUMB - Chief complaint Chief Complaint: Back Pain - Additonal information Additional information: hx from pt 62 female breast cancer met to spine and pelvis had steroids and rad tx for same sx continue to worsen she has had MRI's 02/[address] scans 02/21 showing mets, fx not seen not able to be fully ruled out 2/2 mets, no abscess sx have continued to progress pt is still awaiting referrals to spine, pain management, and [facility] now to pt where she is completely numb R leg and "fuzzy" feeling in left leg and she is so weak she cannot safely stand, her legs just give out on her she has fallen again but back into couch s injury no saddle anesthesia or incont no fever cough NVD she called [facility] and was referred to ED again - 3rd time I have seen her for same this month Review of Systems Constitutional: denies: Fever, Chills Throat: denies: Sore throat Cardiac: denies: Chest pain / pressure Respiratory: denies: Dyspnea, Cough GI: denies: Abdominal Pain, Nausea, Vomiting, Diarrhea : denies: Incontinent Musculoskeletal: reports: Back pain (low lumbar/sacrum), Joint pain (R hip) Neurologic: reports: Focal weakness, Numbness Endocrine: denies: Easy bruising / bleeding Immunocompromised: denies: Immunocompromised PD PAST MEDICAL HISTORY - Past Medical History Past Medical History: Yes Cardiovascular: None Respiratory: None Neuro: None Endocrine/Autoimmune: None GI: GERD 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 - Past Surgical History Past Surgical History: Yes General: Appendectomy /LATEX SPOOLER: Mastectomy - Present Medications Home Medications: Ambulatory Orders Medication Instructions Recorded Confirmed Acetaminophen [Tylenol Extra 1,000 mg PO Q6HR PRN 02/27/17 02/27/17 Strength] Lidocaine Patch 5% [Lidoderm Patch] 1 each TOP DAILY PRN #10 patch 03/05/17 - Allergies Allergies/Adverse Reactions: Allergies Allergy/AdvReac Type Severity Reaction Status Date / Time epinephrine Allergy Unknown Verified 01/08/17 12:16 erythromycin base Allergy Unknown Verified 01/08/17 12:16 [Erythromycin Base] hydrocortisone Allergy Unknown Verified 01/08/17 12:16 [From Cortizone-10] lorazepam [From Ativan] Allergy Hallucinati Verified 01/08/17 12:16 ons Sulfa (Sulfonamide Allergy Unknown Verified 01/08/17 12:16 Antibiotics) trazodone Allergy Edema Verified 01/08/17 12:16 NSAIDS (Non-Steroidal AdvReac Unknown Verified 01/08/17 12:16 Anti-Inflamma - Social History Does the pt smoke?: No Smoking Status: Never smoker Does the pt drink ETOH?: No Does the pt have substance abuse?: No - Immunizations Immunizations are current?: Yes - POLST Patient has POLST: No PD ED PE NORMAL - Vitals Vital signs reviewed: Yes - HEENT HEENT: Atraumatic - Neck Neck: Supple, no meningeal sign - Cardiac Cardiac: RRR - Respiratory Respiratory: No respiratory distress - Abdomen Abdomen: Soft, Non tender - Derm Derm: Normal color - Extremities Extremities: No deformity, Other (mild sara LE edema) - Neuro Neuro: Alert and oriented X 3, bag turner 2-12 intact, Other (upper ext nl motor and sensation, lower ext right hip flex 1/5, knee ext 1/5 foot dorsi planta and great toe ext 4/5, no clonuc, patelllar DTR 1/4, diffusely dec sensation to light touch, LLE, hip flex knee ext 4/5, foot dorsi plantar and great toe 5/5 no clonus, patellar DTR 2/4, sensation slightly decreased diffusely ) Results - Vitals Vitals: Vital Signs - 24 hr 03/05/17 03/05/17 13:04 16:16 Temperature 37.2 C Heart Rate 97 95 Respiratory 18 18 Rate Blood Pressure 134/77 H 127/85 H O2 Saturation 100 100 Oxygen O2 Source Room air - Rads (name of study) MRI L spine w/wo Radiology: See rad report (stable metastatic osseous disease, no new or progressiv marrow edmea or pathologic fx, no epidural or paraspinous ST metastatic dz, stable spondylosis) MRI pelvis w/wo Radiology: See rad report (multifocal osseous metastatic dz with large lesions involving right ilium and ischium, no change from prior, new mm edema R gluteus and hip adducters and iliacus could be interval mm strain, no fx) PD MEDICAL DECISION MAKING - ED course ED course: pt advised that MRI are essentially same as before and no clear answer why she cannot walk, specifically that the ER role was to rule out a new emergent process requiring intervention such as surgery or antibiotics and none was found today SW met with pt to arrange for pt to go to [facility] for care since she cannot safely ambulate but in the end pt decided she would hire more in home help for herself and have her sister come assist her and get a wheelchair in addition to her 2 walkers Departure - Departure Disposition: Home, Self Care Clinical Impression: Metastatic breast cancer, Weakness, Right hip pain Back pain Qualifiers: Back pain location: low back pain Chronicity: acute Back pain laterality: right Sciatica presence: unspecified whether sciatica present Qualified Code(s) : M54.5 - Low back pain Condition: Good Instructions: ED Chronic Pain Management Follow-Up: Nikolas Bahena MD [Primary Care Provider] - Prescriptions: Lidocaine Patch 5% [Lidoderm Patch] 1 each TOP DAILY PRN #10 patch PRN Reason: Pain Comments: We recommended that you go to [facility] for your safety since you report that you cannot walk, but you have chosen to go home for now Please follow up with your [facility] team for ongoing care, referral, authorizations, questions etc Continue Tylenol and lidocaine patches as needed for pain The older adult social work specialist has provided you with local resource information and you have told me you have two walkers and plan on getting a wheelchair
[2017-03-05] MEDS ORDERED: GADOBUTROL 10 MMOL/10 ML VIAL IVP ONE (15:28)
[2017-03-05] MEDS ORDERED: ACETAMINOPHEN 325 MG TABLET PO STA (16:14)
[2017-03-05] MEDS ORDERED: ACETAMINOPHEN 325 MG TABLET PO ONE (16:20)
--- NOTE | 2017-03-05 16:20 | MRI Report ---
EXAM: MRI LUMBAR SPINE WITHOUT AND WITH CONTRAST EXAM DATE: 03/05/2017 03:44 PM. CLINICAL HISTORY: Metastatic breast cancer to the spine and pelvis. Patient cannot walk. Bilateral le g weakness and right leg numbness. COMPARISONS: 02/21/2017, 02/08/2017. TECHNIQUE: Multiplanar, multisequence T1-weighted and fluid-sensitive sequences of the lumbar spine f rom T12 to S1 before and after administration of intravenous contrast. IV contrast: 10 cc gadavist. O ther: None. FINDINGS: Spinal Cord: The conus terminates at L1. No signal abnormality in the visualized spinal cord. Alignment: Stable mild scoliosis. No interval listhesis. Bone Marrow: Five wmn-bld-qxjvuhn lumbar vertebral bodies are assumed. Multifocal sclerotic osseous m etastatic disease appears stable since prior CT and MRI dating back to 02/08/2017, as well as since a dditional prior MRI dating back to 08/18/2016. Disk Levels/Facets: T12-L1: Stable disk narrowing with small posterior central protrusion and extrusion, stable. No grace e. L1-L2: Stable disk narrowing with bulge and osteophytes. Stable facet arthropathy. No stenosis. L2-L3: Stable facet arthropathy bilaterally and mild bilateral foraminal stenoses, unchanged. L3-L4: Stable mild bulge and moderate bilateral facet arthropathy. No central stenosis. Stable bilate ral foraminal stenoses. L4-L5: Stable minimal bulge with moderate bilateral facet arthropathy. No change. Stable bilateral fo raminal stenoses, right greater than left. L5-S1: Stable mild bulge and moderate bilateral facet arthropathy. No change. Spinal Canal: No enhancing masses within the spinal canal. No epidural abscess. Musculature: Normal. No edema, abnormal enhancement, or fatty atrophy. 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 IMPRESSION: 1. Stable osseous metastatic disease. 2. No new or progressive marrow edema or pathologic fracture. No evidence of epidural or paraspinous soft tissue metastatic disease. 3. Stable multilevel degenerative spondylosis. Comment: The following findings are so common in adults without low back pain that while we report th eir presence, they must be interpreted with caution and in the context of the clinical situation. (Re jordin Coello et al, Spine 2001) Prevalence of findings in patients without low back pain: Disk degeneration (any evidence): 92% Disk desiccation/T2 signal loss: 83% Disk height loss: 56% Disk bulge: 64% Disk protrusion: 32% Annular tear/high intensity zone: 38% [facility] Referring Provider Line: [phone] SITE ID: [id number]
--- NOTE | 2017-03-05 16:24 | MRI Preliminary Report ---
Exam: MRI Pelvis W/WO IMPRESSION: 1. Multifocal osseous metastatic disease with a large lesion involving much of the right ilium and is chium. No change since prior. 2. New mild muscle edema in the right gluteus and hip adductors as well as right iliacus. Findings bynum ggest interval muscle strain. 3. No evidence of fracture. [facility] MUSCULOSKELETAL RADIOLOGY SECTION SITE ID: [id number]
--- NOTE | 2017-03-05 16:27 | MRI Report ---
EXAM: MRI PELVIS WITHOUT AND WITH CONTRAST EXAM DATE: 03/05/2017 03:45 PM. CLINICAL HISTORY: Metastatic breast cancer. Low back and right hip pain. Patient cannot walk. COMPARISON: CT lumbar spine 02/21/2017, MR lumbar spine 02/08/2017 and 08/18/2016. Pelvic MRI 02/08/[address] 09/11/2016. TECHNIQUE: Multiplanar, multisequence T1-weighted and fluid-sensitive sequences of the pelvis before and after administration of intravenous contrast. IV contrast: 10 cc gadolinium contrast. Other: None . FINDINGS: Bones: Multifocal osseous metastatic disease is unchanged in size from prior studies dating back to 0 09/11/2016. Mild heterogeneous enhancement of the large right ilium/ischium lesion. No new lesions are seen. No evidence of pathologic fracture. Lower Lumbar Spine: Unremarkable. Right Hip: No fracture. Stable bony metastases. Left Hip: No fracture. Stable bony metastatic disease. Symphysis Pubis: Unremarkable. Musculature: New muscle edema and mild enhancement right gluteus ashley and right hip adductors as w ell as the right iliacus. Pelvic Cavity: Pelvic kidney with large cyst, stable. Otherwise visualized pelvic organs are unremark able. Other: The visualized sciatic nerves are unremarkable. No bursitis. The subcutaneous tissues are unre markable. No abscess or cellulitis. IMPRESSION: 1. Multifocal osseous metastatic disease with a large lesion involving much of the right ilium and is chium. No change since prior. 2. New mild muscle edema in the right gluteus and hip adductors as well as right iliacus. Findings bynum ggest interval muscle strain. 3. No evidence of fracture. [facility] MUSCULOSKELETAL RADIOLOGY SECTION Referring Provider Line: [phone] SITE ID: [id number]
[2017-03-05 18:36] VITALS: BP 124/87
== END 2017-03-05 18:28 | disposition home or self-care (01) ==
LOC: EDUNIT# → ED 12:57
DX: C50.919 Malignant neoplasm of unspecified site of unspecified female breast (principal); C79.51 Secondary malignant neoplasm of bone; R53.1 Weakness; M25.551 Pain in right hip; M54.5 Low back pain; K21.9 Gastro-esophageal reflux disease without esophagitis
CPT/HCPCS: 72158; 72197; 99283; 99285; A9270; A9585

== ENCOUNTER 2017-03-16 09:54 | Outpatient (CLI) | payer MEDICAID | END 2017-03-16 09:55 | disposition critical access hospital (66) | LOC: EMS 09:54 | PROVIDERS: ATTEND Surgery | DX: S79.911A Unspecified injury of right hip, initial encounter (principal); W01.10XA Fall on same level from slipping, tripping and stumbling with subsequent striking against unspecified object, initial encounter | CPT/HCPCS: A0425; A0429 ==

== ENCOUNTER 2017-03-16 10:02 | Emergency (ER) | payer MEDICAID ==
[2017-03-16 10:53] LABS: BILIRUBIN,URINE NEGATIVE (NEGATIVE); UA CHARGE (STRIP ONLY) YES; UR CULTURE IF IND NOT INDICATED
--- NOTE | 2017-03-16 11:43 | CT Preliminary Report ---
Exam: CT Pelvis W/O IMPRESSION: 1. Extensive sclerotic metastases. Probable nondisplaced fracture of the right body of pubis. Subtle fractures through the metastatic foci are difficult to exclude due to the ongoing bony destruction. 2. No significant change in the soft tissues since the prior MRI on March 05. [facility] SITE ID: [id number]
--- NOTE | 2017-03-16 11:47 | CT Preliminary Report ---
Exam: CT Head W/O IMPRESSION: 1. No acute intracranial abnormality is identified. 2. No acute fracture. [facility] SITE ID: [id number]
--- NOTE | 2017-03-16 11:49 | CT Report ---
EXAM: CT HEAD EXAM DATE: 03/16/2017 11:04 AM. CLINICAL HISTORY: Fall with closed head injury. COMPARISON: None. TECHNIQUE: Multiaxial CT images were obtained from the foramen magnum to the vertex. IV contrast: Non e. Reformats: Coronal. In accordance with CT protocol optimization, one or more of the following dose reduction techniques w ere utilized for this exam: automated exposure control, adjustment of mA and/or KV based on patient s ize, or use of iterative reconstructive technique. FINDINGS: Parenchyma: No acute vascular insult or acute parenchymal hemorrhage. No midline shift. No mass effec t. Extraaxial Spaces: Normal for age. No subdural or epidural collections identified. Ventricles: Normal in size and position. Sinuses: Imaged paranasal sinuses, orbits, and mastoids show no significant abnormality. Bones: No evidence of fracture or calvarial defect. Other: Globes and orbits are unremarkable. IMPRESSION: 1. No acute intracranial abnormality is identified. 2. No acute fracture. [facility] Referring Provider Line: [phone] SITE ID: [id number]
--- NOTE | 2017-03-16 11:50 | CT Report ---
EXAM: CT BONY PELVIS WITHOUT CONTRAST EXAM DATE: 03/16/2017 11:05 AM. CLINICAL HISTORY: Fall with pain right pelvis. COMPARISON: Multiple priors including prior pelvic x-ray and MRI from 03/05/2017. TECHNIQUE: Thin-section axial images were acquired of the pelvis without contrast. Post-processing: C oronal and sagittal reformats. Other: None. In accordance with CT protocol optimization, one or more of the following dose reduction techniques w ere utilized for this exam: automated exposure control, adjustment of mA and/or KV based on patient s ize, or use of iterative reconstructive technique. FINDINGS: Bones: There is extensive sclerotic change throughout the bony pelvis and both femora, consistent wit h known metastatic disease. There is a large sclerotic lesion involving most of the right ilium. The cortex is markedly irregular and subtle fractures may be difficult to detect. There is a thin lucent line in the sagittal plane through the right body of pubis, image 3/182, suggestive of a nondisplaced fracture. There are no other visible fractures, but subtle fractures through metastatic foci may be difficult to define. Sacroiliac Joints: Mild degenerative change of both sacroiliac joints. Symphysis Pubis: Unremarkable. Moderate bilateral hip osteoarthritis. Musculature: Normal. No fatty atrophy. Pelvic Cavity: There is a cystic lesion in the pelvis, as on the prior study. Other: No lymphadenopathy. No free air or free fluid. The other visualized soft tissues are unremarka ble. IMPRESSION: 1. Extensive sclerotic metastases. Probable nondisplaced fracture of the right body of pubis. Subtle fractures through the metastatic foci are difficult to exclude due to the ongoing bony destruction. 2. No significant change in the soft tissues since the prior MRI on March 05. [facility] Referring Provider Line: [phone] SITE ID: [id number]
--- NOTE | 2017-03-16 12:49 | ED Physician Documentation ---
PD HPI Fall - Stated complaint Stated Complaint: RIGHT HIP PAIN S/P FALL - HIT HEAD - Chief complaint Chief Complaint: Back Pain - History obtained from History obtained from: Patient, EMS - History of Present Illness Mechanism of injury: Lost balance Fall distance: Standing position Where injury occurred: Home Timing - onset: Today (just prior to arrival.) Injury(ies) location: Head, Right Lower Extremity Quality of pain: Pain Associated symptoms: No: LOC, Neck pain, Nausea / vomiting - Additional information Additional information: The patient is a somewhat debilitated female who arrives via ambulance after falling at home. She has a history of breast cancer with bony metastases to the pelvis. She is normally in a wheelchair and uses a walker when ambulating. This morning she walked to her refrigerator without the walker, and when she turned around she fell, hitting her head and landing on her right pelvic region. She denies loss of consciousness, neck pain, nausea or vomiting. She does not use anticoagulant medication. She complains of pain in the right occipital region of her head, and pain in her right sacral region. She has chronic pain in the right sacral region from the metastatic disease, but the pain today is worse than her chronic pain. Review of Systems Constitutional: denies: Fever Ears: denies: Tinnitus/ringing Nose: denies: Congestion Throat: denies: Sore throat Cardiac: denies: Chest pain / pressure Respiratory: denies: Dyspnea, Cough GI: denies: Abdominal Pain, Nausea, Vomiting : denies: Dysuria Skin: denies: Rash Musculoskeletal: reports: Back pain (chronically), Extremity pain (right pelvic region). denies: Neck pain Neurologic: reports: Generalized weakness, Head injury. 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 : None HEENT: None Psych: Anxiety Musculoskeletal: None Derm: None Other Past Medical History: Breast CA mets to sacrum - Past Surgical History Past Surgical History: Yes General: Appendectomy /ANALYSIS SPECIALIST: Mastectomy - Present Medications Home Medications: Ambulatory Orders Medication Instructions Recorded Confirmed Acetaminophen [Tylenol Extra 1,000 mg PO Q6HR PRN 02/27/17 03/16/17 Strength] Lidocaine Patch 5% [Lidoderm Patch] 1 each TOP DAILY PRN #10 patch 03/05/1706/22 Melatonin 3 mg PO 03/16/17 03/16/17 - Allergies Allergies/Adverse Reactions: Allergies Allergy/AdvReac Type Severity Reaction Status Date / Time dexamethasone Allergy Unknown Verified 03/16/17 11:33 epinephrine Allergy Unknown Verified 01/08/17 12:16 erythromycin base Allergy Unknown Verified 01/08/17 12:16 [Erythromycin Base] hydrocortisone Allergy Unknown Verified 01/08/17 12:16 [From Cortizone-10] lorazepam [From Ativan] Allergy Hallucinati Verified 01/08/17 12:16 ons Sulfa (Sulfonamide Allergy Unknown Verified 01/08/17 12:16 Antibiotics) trazodone Allergy Edema Verified 01/08/17 12:16 NSAIDS (Non-Steroidal AdvReac Unknown Verified 01/08/17 12:16 Anti-Inflamma - Living Situation Living Situation: reports: Alone Living Arrangement: reports: At home - Social History Does the pt smoke?: No Smoking Status: Never smoker Does the pt drink ETOH?: No Does the pt have substance abuse?: No - Immunizations Immunizations are current?: Yes - POLST Patient has POLST: No PD ED PE NORMAL - Vitals Vital signs reviewed: Yes (Initially hypertensive.) - General General: Alert and oriented X 3, Other (Overweight, and deconditioned.) - HEENT HEENT: PERRL, EOMI, Pharynx benign, Other (There is tenderness to palpation in the right occipital region of the scalp, with slight swelling. There is no bony step-off, and no break in the integument.) - Neck Neck: No bony TTP, No adenopathy, No JVD - Cardiac Cardiac: RRR, No murmur - Respiratory Respiratory: No respiratory distress, Clear bilaterally - Abdomen Abdomen: Soft, Non tender - Back Back: No CVA TTP, No spinal TTP - Derm Derm: No rash - Extremities Extremities: No edema, No calf tenderness / cord, Other (There is tenderness to palpation over the right iliac wing. The hip is not tender to palpation, and there is no discomfort with internal or external rotation of the hip.) - Neuro Neuro: Alert and oriented X 3, No motor deficit, No sensory deficit, Normal speech Results - Vitals Vitals: Vital Signs - 24 hr 03/16/17 18:32 Heart Rate 90 Respiratory 16 Rate Blood Pressure 131/64 H O2 Saturation 100 Oxygen O2 Source Room air - Labs Labs: Laboratory Tests 03/16/17 10:40 Urine Color YELLOW Urine Clarity CLEAR Urine pH 6.0 Ur Specific [place] <=1.005 Urine Protein NEGATIVE Urine Glucose (UA) NEGATIVE Urine Ketones NEGATIVE Urine Occult Blood NEGATIVE Urine Nitrite NEGATIVE Urine Bilirubin NEGATIVE Urine Urobilinogen 0.2 (NORMAL) Ur Leukocyte Esterase NEGATIVE Ur Microscopic Review NOT INDICATED Urine Culture Comments NOT INDICATED - Rads (name of study) Pelvis CT Radiology: Prelim report reviewed, EMP read contemporaneously, See rad report ( Extensive sclerotic metastases. Probable nondisplaced fracture of the right body of the pubis. Subtle fractures to the metastatic foci are difficult to exclude due to the ongoing bony destruction. No significant change in the soft tissues since the prior MRI on March 05.) Head CT w/o Radiology: Prelim report reviewed, EMP read contemporaneously, See rad report ( No acute intracranial abnormalities identified. No acute fracture.) PD MEDICAL DECISION MAKING - ED course Complexity details: reviewed old records, reviewed results, re-evaluated patient , considered differential, d/w patient, d/w hearing consultant ED course: The patient's presentation is significant for fall in a mobility challenged person with breast cancer with bony metastases. Her injuries include scalp contusion, without intracranial hemorrhage or skull fracture noted on CT scan of the head. CT scan of the pelvis reveals suspected nondisplaced fracture to the right pubis associated with severe metastatic disease. Treatment in the emergency department included administration of acetaminophen 1 g orally. The patient declined any stronger pain medication. Mylanta 30 mL was administered orally. The medical data entry clerk was consulted regarding placement in an adult care facility given the patient's increased pain and decreased mobility. However the patient was very motivated to return home, and was resistant to placement in a care facility. She demonstrated the ability to ambulate, bearing weight on her right leg. She reports that the pain is not significantly worse now than it is chronically. She has tramadol at home which has been previously prescribed. I discussed with her the importance of outpatient follow-up, as well as potentially worrisome signs or symptoms that should prompt reevaluation in the emergency department. Departure - Departure Disposition: 01 Home, Self Care Clinical Impression: Bony metastasis Fall Qualifiers: Encounter type: initial encounter Qualified Code(s): W19.XXXA - Unspecified fall, initial encounter Nondisplaced fracture of pelvis Qualifiers: Encounter type: initial encounter Pelvic bone location: pubis Fracture type: closed Laterality: right Qualified Code(s): S32.501A - Unspecified fracture of right pubis, initial encounter for closed fracture Condition: Stable Instructions: ED Fx Pelvis Follow-Up: Arnel Head MD [Primary Care Provider] - Comments: Continue tramadol as previously prescribed if needed for pain. Let pain be your guide to activity level. Follow up with your primary physician. Call to schedule appointment. Return to the emergency department if you develop increasing pain, recurrent falling, or otherwise worsening symptoms. Discharge Date/Time: 03/16/17 18:42
[2017-03-16] MEDS ORDERED: ACETAMINOPHEN 500 MG TABLET PO STA (13:46)
[2017-03-16] MEDS ORDERED: ACETAMINOPHEN 500 MG TABLET PO ONE (13:54)
[2017-03-16] MEDS ORDERED: MAG HYDROX/AL HYDROX/SIMETH 30 ML UDC PO STA (14:02)
[2017-03-16] MEDS ORDERED: MAG HYDROX/AL HYDROX/SIMETH 30 ML UDC ONE (14:04)
[2017-03-16 18:33] VITALS: BP 131/64
== END 2017-03-16 18:42 | disposition home or self-care (01) ==
LOC: EDUNIT# → ED 10:02
DX: S32.501A Unspecified fracture of right pubis, initial encounter for closed fracture (principal); Z85.3 Personal history of malignant neoplasm of breast; C79.51 Secondary malignant neoplasm of bone; W18.30XA Fall on same level, unspecified, initial encounter
CPT/HCPCS: 70450; 72192; 81003; 99283; 99284; A9270; 81001; 87086

== ENCOUNTER 2017-03-22 17:28 | Outpatient (CLI) | payer MEDICAID | END 2017-03-22 17:29 | disposition EMS.NT | LOC: EMS 17:28 | PROVIDERS: ATTEND Surgery | DX: Z03.89 Encounter for observation for other suspected diseases and conditions ruled out (principal); W19.XXXA Unspecified fall, initial encounter; Y92.009 Unspecified place in unspecified non-institutional (private) residence as the place of occurrence of the external cause ==

== ENCOUNTER 2017-04-12 15:42 | Outpatient (CLI) | payer MEDICAID | END 2017-04-12 15:43 | disposition EMS.NT | LOC: EMS 15:42 | PROVIDERS: ATTEND Surgery | DX: Z03.89 Encounter for observation for other suspected diseases and conditions ruled out (principal); W01.0XXA Fall on same level from slipping, tripping and stumbling without subsequent striking against object, initial encounter; Y93.E1 Activity, personal bathing and showering; Y92.031 Bathroom in apartment as the place of occurrence of the external cause ==

== ENCOUNTER 2017-04-18 07:34 | Outpatient (CLI) | payer MEDICAID | END 2017-04-18 07:35 | disposition critical access hospital (66) | LOC: EMS 07:34 | PROVIDERS: ATTEND Surgery | DX: M25.551 Pain in right hip (principal); W18.39XA Other fall on same level, initial encounter; Y92.031 Bathroom in apartment as the place of occurrence of the external cause | CPT/HCPCS: A0425; A0429 ==

== ENCOUNTER 2017-04-18 07:39 | Emergency (ER) | payer MEDICAID ==
[2017-04-18] MEDS ORDERED: ACETAMINOPHEN 1,000 MG/100 ML 100 ML IV STA (07:47)
[2017-04-18] MEDS ORDERED: ACETAMINOPHEN 1,000 MG/100 ML 100 ML IV ONE (07:57)
[2017-04-18] MEDS ORDERED: SODIUM CHLORIDE FLUSH 0.9% 10 ML SYRINGE IVP ONE (07:59)
--- NOTE | 2017-04-18 08:00 | ED Physician Documentation ---
History of Present Illness - Stated complaint Stated Complaint: GLF - Chief complaint Chief Complaint: Ext Problem - Additonal information Additional information: hx from pt 62 female known breast cancer with mets to spine and pelvis s/p radiation and steroid tx for same 2/2 above she has weakness and numbness to her RLE and frequently falls this has been extensively worked up with CT amd MRI and pt has been offered SNF placement numerous times but prefers to remain at home - has gotten in home care 3-4 hr a day as well as PT or OT most weekdays today when went to the bathroom and missed the grab bar as she got up and fell back injuring her R hip and then also hitting her head no blood thinners no PAZ + neck pain severe R hip pain worse than her baseline with shortening - also dec sensation "feels frizzy" but this is not new other than the fall she has been well - no fever cough NVD urinary sx etc Review of Systems Constitutional: denies: Fever, Chills Cardiac: denies: Chest pain / pressure Respiratory: denies: Dyspnea GI: denies: Abdominal Pain, Nausea, Vomiting, Diarrhea : denies: Dysuria Musculoskeletal: reports: Neck pain, Extremity pain Neurologic: reports: Head injury Endocrine: denies: Easy bruising / bleeding Immunocompromised: denies: Immunocompromised PD PAST MEDICAL HISTORY - Past Medical History Past Medical History: Yes Cardiovascular: None Respiratory: None Neuro: None Endocrine/Autoimmune: None GI: GERD 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 : None HEENT: None Psych: Anxiety Musculoskeletal: None Derm: None - Past Surgical History Past Surgical History: Yes General: Appendectomy /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: Mastectomy - Present Medications Home Medications: Ambulatory Orders Medication Instructions Recorded Confirmed Acetaminophen [Tylenol Extra 1,000 mg PO Q6HR PRN 02/27/17 03/16/17 Strength] Melatonin 3 mg PO 03/16/17 03/16/17 Lidocaine Patch 5% [Lidoderm Patch] 1 each TOP DAILY PRN #10 patch 04/18/17 - Allergies Allergies/Adverse Reactions: Allergies Allergy/AdvReac Type Severity Reaction Status Date / Time cortisone Allergy Unknown Verified 04/18/17 07:49 dexamethasone Allergy Unknown Verified 03/16/17 11:33 epinephrine Allergy Unknown Verified 01/08/17 12:16 erythromycin base Allergy Unknown Verified 01/08/17 12:16 [Erythromycin Base] hydrocortisone Allergy Unknown Verified 01/08/17 12:16 [From Cortizone-10] lorazepam [From Ativan] Allergy Hallucinati Verified 01/08/17 12:16 ons prednisone Allergy Unknown Verified 04/18/17 07:49 Sulfa (Sulfonamide Allergy Unknown Verified 01/08/17 12:16 Antibiotics) trazodone Allergy Edema Verified 01/08/17 12:16 NSAIDS (Non-Steroidal AdvReac Unknown Verified 01/08/17 12:16 Anti-Inflamma - Social History Does the pt smoke?: No Smoking Status: Never smoker Does the pt drink ETOH?: No Does the pt have substance abuse?: No - Immunizations Immunizations are current?: Yes - POLST Patient has POLST: No PD ED PE NORMAL - Vitals Vital signs reviewed: Yes - General General: Alert and oriented X 3 - HEENT HEENT: PERRL - Neck Neck: No: No bony TTP (+ bony TTP - will image) - Cardiac Cardiac: RRR - Respiratory Respiratory: No respiratory distress, Clear bilaterally - Abdomen Abdomen: Soft, Non tender - Derm Derm: Normal color - Extremities Extremities: Other (RLE TTP lateral and ant R hip with slight shortening and ext rotation, some dec sensation which is not new, + motor to toes, + pulse) - Neuro Neuro: Alert and oriented X 3, No motor deficit. No: No sensory deficit (no change from prior though) Results - Vitals Vitals: Vital Signs - 24 hr 04/18/17 04/18/17 04/18/17 07:39 09:29 11:00 Temperature 36 C L 36.1 C L Heart Rate 90 87 84 Respiratory 20 16 20 Rate Blood Pressure 132/80 H 135/83 H 130/86 H O2 Saturation 96 100 04/18/17 12:00 Temperature Heart Rate 82 Respiratory 20 Rate Blood Pressure 128/84 H O2 Saturation 96 Oxygen O2 Source Room air - Rads (name of study) CTH Radiology: See rad report (no acute skull fx or ICH) CT CS Radiology: See rad report (no fx or dislocation, metastatic dz) CT pelvis Radiology: See rad report (no fx or dislocation, metasttic dz and cystic mass all stable from prior imaging) CT femur Radiology: See rad report (no fx, metastatic dz) PD MEDICAL DECISION MAKING - ED course ED course: pt declines narcotic pain meds and req IV tylenol imaging neg for fx seen by SW to discuss placement again and assist getting DME (commode, urinal etc) and more services - see her note pt to call for lift assist to get back into her home will dc with fall precautions and rec pt use her walker Departure - Departure Disposition: 01 Home, Self Care Clinical Impression: Bony metastasis Fall Qualifiers: Encounter type: initial encounter Qualified Code(s): W19.XXXA - Unspecified fall, initial encounter Contusion of right hip Qualifiers: Encounter type: initial encounter Qualified Code(s): S70.01XA - Contusion of right hip, initial encounter Head injury Qualifiers: Encounter type: initial encounter Qualified Code(s): S09.90XA - Unspecified injury of head, initial encounter Acute neck sprain Qualifiers: Encounter type: initial encounter Qualified Code(s): S13.9XXA - Sprain of joints and ligaments of unspecified parts of neck, initial encounter Condition: Good Instructions: ED Sprain Strain Neck, ED Contusion Hip Follow-Up: Arnel Head MD [Primary Care Provider] - Prescriptions: Lidocaine Patch 5% [Lidoderm Patch] 1 each TOP DAILY PRN #10 patch PRN Reason: Pain Comments: The CT scans do not show any new fractures. I have asked the SW to assist getting you a bedside commode and we also gave you a female urinal to try and prevent night time falls when you go to the bathroom. As before, please always always use your walker Recommend ice, tylenol, and lidocaine patches for the pain And please get your blood pressure rechecked it was high today Discharge Date/Time: 04/18/17 12:35
--- NOTE | 2017-04-18 09:18 | CT Preliminary Report ---
Exam: CT Head W/O IMPRESSION: No CT evidence for acute abnormality or significant interval change. [facility] S[id number]
--- NOTE | 2017-04-18 09:20 | CT Report ---
EXAM: CT HEAD EXAM DATE: 04/18/2017 08:53 AM. CLINICAL HISTORY: Fall with trauma to the head. COMPARISON: 03/16/2017. TECHNIQUE: Multiaxial CT images were obtained from the foramen magnum to the vertex. IV contrast: Non e. Reformats: Coronal. In accordance with CT protocol optimization, one or more of the following dose reduction techniques w ere utilized for this exam: automated exposure control, adjustment of mA and/or KV based on patient s ize, or use of iterative reconstructive technique. FINDINGS: Stable aged appearance of the brain. No acute intracranial hemorrhage. No evidence for hydrocephalus, infarct, mass effect or midline shift. Intact calvarium, no acute sinus or mastoid disease. IMPRESSION: No CT evidence for acute abnormality or significant interval change. [facility] Referring Provider Line: [phone] SITE ID: [id number]
--- NOTE | 2017-04-18 09:22 | CT Preliminary Report ---
Exam: CT Cervical Spine W/O IMPRESSION: 1. DJD. 2. Areas of sclerosis in C2, T2 consistent with history of metastatic disease [facility] SITE ID: [id number]
--- NOTE | 2017-04-18 09:22 | CT Report ---
EXAM: CT RIGHT FEMUR AND BONY PELVIS WITHOUT CONTRAST EXAM DATE: 04/18/2017 08:56 AM. CLINICAL HISTORY: Known metastatic bone disease. Right hip and femoral pain after fall. COMPARISON: Pelvis CT from 03/16/2017. TECHNIQUE: Thin-section axial images were acquired of the pelvis and right femur without contrast. Po st-processing: Coronal and sagittal reformats. Other: None. In accordance with CT protocol optimization, one or more of the following dose reduction techniques w ere utilized for this exam: automated exposure control, adjustment of mA and/or KV based on patient s ize, or use of iterative reconstructive technique. FINDINGS: Bones: Multiple sclerotic metastatic lesions at the visualized lower lumbar spine, sacrum, pelvis, vi sualized left femur, right femur, and visualized right tibia. No acute fracture. The lesions of the p christal are unchanged. Sacroiliac Joints: No widening, erosions, or sclerosis. Symphysis Pubis: Unremarkable. Right Hip: Mild/moderate right hip joint space narrowing. Left Hip: Mild left hip joint space narrowing. Musculature: Normal. No fatty atrophy. 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 Other: No lymphadenopathy. No free air or free fluid. The other visualized soft tissues are unremarka ble. IMPRESSION: 1. Metastatic bone disease. 2. No acute fracture of the pelvis or right femur. 3. [id number] right hip and mild left hip joint space narrowing. 4. 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 The mass may represent a cyst. [facility] Referring Provider Line: [phone] SITE ID: [id number]
--- NOTE | 2017-04-18 09:25 | CT Report ---
EXAM: CT CERVICAL SPINE WITHOUT CONTRAST DATE: 04/18/2017 08:52 AM HISTORY: Fell hit head neck pain distracting injuries. Metastatic disease COMPARISONS: None. TECHNIQUE: Thin-section axial images were acquired of the cervical spine without contrast. Post-proce ssing: Coronal and sagittal reformats. Other: None. In accordance with CT protocol optimization, one or more of the following dose reduction techniques w ere utilized for this exam: automated exposure control, adjustment of mA and/or KV based on patient s ize, or use of iterative reconstructive technique. FINDINGS: Alignment: Normal. No scoliosis or spondylolisthesis. Bones: There is sclerosis in C2, T2. Interspace Levels/Facets: C1-C2: Degenerative changes at less odontoid C2-C3: Unremarkable. C3-C4: Osteophyte C4-C5: Osteophyte mild disk space narrowing C5-C6: Osteophyte uncovertebral osteophyte C6-C7: Osteophyte, uncovertebral osteophyte C7-T1: Unremarkable. Musculature: Normal. No fatty atrophy. Other: The paravertebral and prevertebral soft tissues are normal. The lung apices are clear. IMPRESSION: 1. DJD. 2. Areas of sclerosis in C2, T2 consistent with history of metastatic disease [facility] Referring Provider Line: [phone] SITE ID: [id number]
[2017-04-18 12:34] VITALS: BP 128/84
== END 2017-04-18 12:35 | disposition home or self-care (01) ==
LOC: EDUNIT# → ED 07:39
DX: C79.51 Secondary malignant neoplasm of bone (principal); S70.01XA Contusion of right hip, initial encounter; S09.90XA Unspecified injury of head, initial encounter; S13.9XXA Sprain of joints and ligaments of unspecified parts of neck, initial encounter; C50.919 Malignant neoplasm of unspecified site of unspecified female breast; C79.89 Secondary malignant neoplasm of other specified sites; W18.30XA Fall on same level, unspecified, initial encounter; Y93.89 Activity, other specified
CPT/HCPCS: 70450; 72125; 72192; 73700; 96374; 99284; J0131

== ENCOUNTER 2017-04-20 14:05 | Outpatient (CLI) | payer MEDICAID | END 2017-04-20 14:06 | disposition EMS.NT | LOC: EMS 14:05 | PROVIDERS: ATTEND Surgery | DX: R53.1 Weakness (principal); W18.39XA Other fall on same level, initial encounter; Y92.039 Unspecified place in apartment as the place of occurrence of the external cause ==

== ENCOUNTER 2017-05-09 05:08 | Outpatient (CLI) | payer MEDICAID | END 2017-05-09 05:09 | disposition EMS.NT | LOC: EMS 05:08 | PROVIDERS: ATTEND Surgery | DX: Z03.89 Encounter for observation for other suspected diseases and conditions ruled out (principal); W18.39XA Other fall on same level, initial encounter; Y92.032 Bedroom in apartment as the place of occurrence of the external cause ==

== ENCOUNTER 2017-07-01 09:14 | Outpatient (CLI) | payer MEDICAID | END 2017-07-01 09:15 | disposition critical access hospital (66) | LOC: EMS 09:14 | PROVIDERS: ATTEND Surgery | DX: R53.1 Weakness (principal); W18.30XA Fall on same level, unspecified, initial encounter; Y92.003 Bedroom of unspecified non-institutional (private) residence as the place of occurrence of the external cause | CPT/HCPCS: A0425; A0429 ==

== ENCOUNTER 2017-07-01 09:20 | Emergency (ER) | payer MEDICAID ==
[2017-07-01] MEDS ORDERED: KETOROLAC 60 MG/2 ML VIAL IVP STA (09:39)
[2017-07-01] MEDS ORDERED: SODIUM CHLORIDE 0.9% 1,000 ML IV ONE (09:39)
--- NOTE | 2017-07-01 09:43 | ED Physician Documentation ---
PD HPI LOWER EXT INJURY - Stated complaint Stated Complaint: FALL/R HIP PX - Chief complaint Chief Complaint: Trauma Ext - History obtained from History obtained from: Patient, EMS - History of Present Illness PD HPI LOW EXT INJURY LOCATION: Right, Hip Type of injury: Fall Where injury occurred: Home Timing - onset: Today Timing - duration: Hours Timing - details: Abrupt onset, Still present Improved by: Rest, Immobilization Worsened by: Moving, Palpating Associated symptoms: Weakness Contributing factors: No: Anticoagulated Similar symptoms before: Diagnosis (bone pain from mets) Recently seen: Other (has finished radiation therapy months ago.) - Additional information Additional information: 62-year-old female with a recent history of bone metastases lives at home alone and today she was using her walker and her legs collapsed on her and she fell landing on her right hip. She landed against her left shoulder on a filing cabinet as well. She has severe pain in the right hip and sacral area.She is averse to taking pain medication and is refused pain medicine in the field. Review of Systems Constitutional: denies: Fever Eyes: denies: Decreased vision Ears: denies: Ear pain Nose: denies: Congestion Throat: denies: Sore throat Cardiac: denies: Chest pain / pressure Respiratory: denies: Dyspnea, Cough GI: denies: Abdominal Pain, Nausea, Vomiting : denies: Dysuria, Frequency Skin: denies: Rash Musculoskeletal: reports: Neck pain, Back pain, Extremity pain Neurologic: reports: Generalized weakness. denies: Focal weakness, Numbness PD PAST MEDICAL HISTORY - Past Medical History Cardiovascular: None Respiratory: None Neuro: None Endocrine/Autoimmune: None GI: GERD [place]: Breast cancer : None HEENT: None Psych: Anxiety Musculoskeletal: None Derm: None - Past Surgical History Past Surgical History: Yes General: Appendectomy /[place]: Mastectomy - Present Medications Home Medications: Ambulatory Orders Medication Instructions Recorded Confirmed Acetaminophen [Tylenol Extra 1,000 mg PO Q6HR PRN 02/27/17 05/15/17 Strength] Melatonin 3 mg PO DAILY 03/16/17 07/01/17 HYDROmorphone [Dilaudid] 2 - 4 mg PO Q4H PRN #20 tablet 07/01/17 - Allergies Allergies/Adverse Reactions: Allergies Allergy/AdvReac Type Severity Reaction Status Date / Time cortisone Allergy Unknown Verified 07/01/17 11:02 dexamethasone Allergy Unknown Verified 07/01/17 11:02 epinephrine Allergy Unknown Verified 07/01/17 11:02 erythromycin base Allergy Unknown Verified 07/01/17 11:02 [Erythromycin Base] hydrocortisone Allergy Unknown Verified 07/01/17 11:02 [From Cortizone-10] lorazepam [From Ativan] Allergy Hallucinati Verified 07/01/17 11:02 ons prednisone Allergy Unknown Verified 07/01/17 11:02 Sulfa (Sulfonamide Allergy Unknown Verified 07/01/17 11:02 Antibiotics) trazodone Allergy Edema Verified 07/01/17 11:02 NSAIDS (Non-Steroidal AdvReac Unknown Verified 07/01/17 11:02 Anti-Inflamma - Social History Does the pt smoke?: No Smoking Status: Never smoker Does the pt drink ETOH?: No Does the pt have substance abuse?: No - Immunizations Immunizations are current?: Yes - POLST Patient has POLST: No PD ED PE NORMAL - Vitals Vital signs reviewed: Yes (hypertensive) - General General: Well developed/nourished, Other (The patient will periodically yell loudly in pain from tiny amounts of movement.) - HEENT HEENT: Atraumatic, PERRL - Neck Neck: Supple, no meningeal sign - Cardiac Cardiac: No murmur, Other (tachy to 100) - Abdomen Abdomen: Soft, Non tender - Back Back: No CVA TTP, No spinal TTP - Derm Derm: Normal color, Warm and dry, No rash - Extremities Extremities: No deformity, Other (There is point tenderness over the trochanter on the right and there is about 1cm of shortening of the right leg. Any movement of the RLE results in severe pain like a hyperalgesia . ) - Neuro Neuro: Alert and oriented X 3, No motor deficit, No sensory deficit, Normal speech Eye Opening: Spontaneous Motor: Obeys Commands Verbal: Oriented GCS Score: 15 - Psych Psych: Normal mood, Normal affect Results - Vitals Vitals: Vital Signs - 24 hr 07/01/17 07/01/17 07/01/17 09:28 11:05 12:36 Temperature 36.6 C 36.5 C Heart Rate 93 81 90 Respiratory 16 20 16 Rate Blood Pressure 158/90 H 151/76 H 143/90 H O2 Saturation 100 100 100 07/01/17 07/01/17 14:01 16:21 Temperature 37.1 C Heart Rate 90 Respiratory 16 Rate Blood Pressure 154/89 H 132/94 H O2 Saturation 97 100 Oxygen O2 Source Room air - EKG (time done) 1405 Rate: Rate (enter#) (91) Ischemia: Non specific changes Compare to prior EKG: Old EKG unavailable Computer interpretation: Agree with computer - Labs Labs: Laboratory Tests 07/01/17 07/01/17 07/01/17 10:00 10:30 10:30 WBC 5.4 RBC 4.66 Hgb 14.5 Hct 41.9 MCV 90.0 MCH 31.2 H MCHC 34.7 RDW 13.0 Plt Count 190 MPV 7.0 L Neut # 3.8 Lymph # 0.8 L [place] # 0.6 Eos # 0.1 Baso # 0.0 Absolute Nucleated RBC 0.01 Nucleated RBC % 0.2 Sodium 135 Potassium 3.5 Chloride 97 L Carbon Dioxide 26 Anion Gap 12.0 BUN 18 Creatinine 0.5 Estimated GFR (MDRD) 124 Glucose 157 H Calcium 11.1 H Total Bilirubin 0.4 AST 22 ALT 23 Alkaline Phosphatase 36 L Troponin I Total Protein 7.5 Albumin 3.9 Globulin 3.6 Albumin/Globulin Ratio 1.1 Lipase 34 Urine Color YELLOW Urine Clarity CLEAR Urine pH 7.0 Ur Specific [place] <=1.005 Urine Protein NEGATIVE Urine Glucose (UA) NEGATIVE Urine Ketones NEGATIVE Urine Occult Blood NEGATIVE Urine Nitrite NEGATIVE Urine Bilirubin NEGATIVE Urine Urobilinogen 0.2 (NORMAL) Ur Leukocyte Esterase NEGATIVE Ur Microscopic Review NOT INDICATED Urine Culture Comments NOT INDICATED 07/01/17 14:39 WBC RBC Hgb Hct MCV MCH MCHC RDW Plt Count MPV Neut # Lymph # [place] # Eos # Baso # Absolute Nucleated RBC Nucleated RBC % Sodium Potassium Chloride Carbon Dioxide Anion Gap BUN Creatinine Estimated GFR (MDRD) Glucose Calcium Total Bilirubin AST ALT Alkaline Phosphatase Troponin I < 0.04 Total Protein Albumin Globulin Albumin/Globulin Ratio Lipase Urine Color Urine Clarity Urine pH Ur Specific [place] Urine Protein Urine Glucose (UA) Urine Ketones Urine Occult Blood Urine Nitrite Urine Bilirubin Urine Urobilinogen Ur Leukocyte Esterase Ur Microscopic Review Urine Culture Comments - Rads (name of study) Hip with pelvis right Radiology: Prelim report reviewed (Impression: 1. No definite acute osseous abnormality.), EMP read indepedently, See rad report CT pelvis and hips Radiology: Prelim report reviewed (Impression: 1. Multiple areas of primarily blastic metastatic disease is similar to 04/18/2017. 2. No acute fractures. 3. 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 Stable.), EMP read indepedently, See rad report Procedures - IVC sono (time) 9002 Bedside IVC sono: IVC measures (cm) (1.32), IVC collapsed c insp (cm) (complete) , Dehydration (mild) PD MEDICAL DECISION MAKING - ED course Complexity details: reviewed old records, reviewed results, re-evaluated patient , considered differential, d/w patient, d/w family ED course: 62-year-old female with a recent history of metastatic cancer to the bone has undergone radiation therapy and since that time has had difficulty with weakness and pain in her legs. Today she collapsed at home and has severe pain in her hips and legs. She is complaining that she always has pain and when she arrives by medics they are barely able to move her about without severe episodic pain. Here in the emergency department she is administered intravenous saline and Toradol she has only mild relief with the Toradol and subsequently is given a half a milligram of Dilaudid with marked improvement in her pain. She has been resistant to taking pain medications that she is very sensitive to pain medication and they tend to work for a long time on her. She is willing now to take some pain medication. She also has been unable to care for herself at home and has some help at home. We did consult healthcare social worker today to try and obtain more help at her home and we are unable to obtain more help. I discussed with the patient a trial of pain medication at home prior to admission to a [facility] facility. Departure - Departure Disposition: 01 Home, Self Care Clinical Impression: Contusion of right hip Qualifiers: Encounter type: initial encounter Qualified Code(s): S70.01XA - Contusion of right hip, initial encounter Condition: Stable Instructions: ED Contusion Hip Follow-Up: Arnel Head MD [Primary Care Provider] - Prescriptions: HYDROmorphone [Dilaudid] 2 - 4 mg PO Q4H PRN #20 tablet PRN Reason: Pain Discharge Date/Time: 07/01/17 16:22
[2017-07-01 10:04] LABS: BILIRUBIN,URINE NEGATIVE (NEGATIVE)
[2017-07-01 10:30] LABS: UA CHARGE (STRIP ONLY) YES; UR CULTURE IF IND NOT INDICATED
[2017-07-01 10:42] LABS: BASOPHILS % (AUTO) 0.3 %; EOSINOPHILS # (AUTO) 0.1 10^3/uL (0.0-0.7); EOSINOPHILS % (AUTO) 2.8 %; HCT - HEMATOCRIT 41.9 % (37.0-47.0); HGB - HEMOGLOBIN 14.5 g/dL (12.0-16.0); LYMPHOCYTES # (AUTO) 0.8 10^3/uL (1.5-3.5); LYMPHOCYTES % (AUTO) 14.7 %; MEAN CORPUSCULAR HEMOGLOBIN 31.2 pg (27.0-31.0); MEAN CORPUSCULAR HGB CONC 34.7 g/dL (32.0-36.0); MONOCYTES # (AUTO) 0.6 10^3/uL (0.0-1.0); MONOCYTES % (AUTO) 10.5 %; NEUTROPHILS # (AUTO) 3.8 10^3/uL (1.5-6.6); NEUTROPHILS % (AUTO) 71.7 %; NUCLEATED RED BLOOD CELLS AUTO 0.2 /100WBC; RED BLOOD COUNT 4.66 10^6/uL (4.20-5.40); UNCORRECTED WHITE BLOOD COUNT 5.4 x10^3/uL; WHITE BLOOD COUNT 5.4 x10^3/uL (4.8-10.8)
[2017-07-01] MEDS ORDERED: KETOROLAC 30 MG/ML VIAL ONE (10:44)
--- NOTE | 2017-07-01 10:46 | XRAY Preliminary Report ---
Exam: XR HIP W/PELVIS 2-3V RT IMPRESSION: 1. No definite acute osseous abnormality. If there is clinical concern for radiographically occult fracture or other pathology, MRI should be c onsidered for further evaluation. [facility] SITE ID: [id number]
--- NOTE | 2017-07-01 10:48 | XRAY Report ---
EXAM: RIGHT HIP AND PELVIS RADIOGRAPHY EXAM DATE: 07/01/2017 10:26 AM. HISTORY: Fall hip/back pain. COMPARISONS: 02/22/2017.. TECHNIQUE: 1 view of the pelvis and 1 view of the hip. FINDINGS: Bones: Similar areas of sclerotic metastases seen through out the pelvis and bilateral hips, right gr eater than left. No convincing acute fracture or malalignment. Joints: The bilateral hip, pubis symphysis, and sacroiliac joints are preserved. Soft Tissues: Normal. No soft tissue swelling. IMPRESSION: 1. No definite acute osseous abnormality. If there is clinical concern for radiographically occult fracture or other pathology, MRI should be c onsidered for further evaluation. [facility] Referring Provider Line: [phone] SITE ID: [id number]
[2017-07-01 10:54] LABS: ALBUMIN/GLOBULIN RATIO 1.1 (1.0-2.2); BILIRUBIN,TOTAL 0.4 mg/dL (0.2-1.0); CALCIUM 11.1 mg/dL (8.5-10.3); CREATININE 0.5 mg/dL (0.4-1.0); POTASSIUM 3.5 mmol/L (3.5-5.0); TOTAL PROTEIN 7.5 g/dL (6.7-8.2)
[2017-07-01] MEDS ORDERED: POTASSIUM BICARB 25 MEQ TABLET PO ONE (11:41)
--- NOTE | 2017-07-01 12:28 | CT Preliminary Report ---
Exam: CT LOWER EXTREMITY RIGHT W/O IMPRESSION: 1. Multiple areas of primarily blastic metastatic disease is similar to 04/18/2017. 2. No acute fractures. 3. 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 Stable. [facility] SITE ID: [id number]
--- NOTE | 2017-07-01 12:41 | CT Report ---
EXAM: RIGHT HIP CT WITHOUT CONTRAST EXAM DATE: 07/01/2017 11:39 AM. CLINICAL HISTORY: Fall; hip pain. No MRI. COMPARISON: CT pelvis 04/18/2017. TECHNIQUE: Thin-section axial images were acquired of the hip without contrast. Post-processing: Fady nal and sagittal reformats. Other: None. In accordance with CT protocol optimization, one or more of the following dose reduction techniques w ere utilized for this exam: automated exposure control, adjustment of mA and/or KV based on patient s ize, or use of iterative reconstructive technique. FINDINGS: Bones: As on the previous examinations, multiple focal areas of permeative destructive expansile-appe aring abnormalities are seen in the right hemipelvis primarily but also involving the left pubic symp hysis, left pelvis, left and right femoral heads and the sacrum. No fractures. Joints: The visualized hip joint spaces are normal. No calcified loose bodies. No large effusions. Th e other visualized joint spaces are normal. Musculature: Normal. No fatty atrophy. Other: Large cystic mass is seen in the pelvis presumed to be a left pelvic kidney. Stable since prev ious. IMPRESSION: 1. Multiple areas of predominantly blastic metastatic disease, similar to 04/18/2017. 2. No acute fractures. 3. 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 Stable. [facility] Referring Provider Line: [phone] SITE ID: [id number]
[2017-07-01] MEDS ORDERED: HYDROmorphone 1 MG/ML SYRINGE IVP STA (12:55)
[2017-07-01] MEDS ORDERED: HYDROmorphone 1 MG/ML SYRINGE ONE ×2 (13:11→13:23)
[2017-07-01] MEDS ORDERED: HYDROmorphone 2 MG TABLET PO STA (15:34)
[2017-07-01] MEDS ORDERED: HYDROmorphone 2 MG TABLET ONE (15:51)
[2017-07-01 16:22] VITALS: BP 132/94
== END 2017-07-01 16:22 | disposition home or self-care (01) ==
LOC: EDUNIT# → ED 09:20
DX: S70.01XA Contusion of right hip, initial encounter (principal); W18.39XA Other fall on same level, initial encounter; Y92.019 Unspecified place in single-family (private) house as the place of occurrence of the external cause; R53.1 Weakness; Z85.3 Personal history of malignant neoplasm of breast; C79.51 Secondary malignant neoplasm of bone; K21.9 Gastro-esophageal reflux disease without esophagitis; Z90.10 Acquired absence of unspecified breast and nipple
CPT/HCPCS: 36415; 73502; 73700; 80053; 81003; 83690; 84484; 85025; 93005; 96361; 96374; 96375; 99284; 99285; A9270; J1170; 72192; 81001; 87086

== ENCOUNTER 2017-07-10 16:29 | Outpatient (CLI) | payer MEDICAID | END 2017-07-10 16:30 | disposition critical access hospital (66) | LOC: EMS 16:29 | PROVIDERS: ATTEND Surgery | DX: R47.02 Dysphasia (principal) | CPT/HCPCS: A0425; A0427 ==

== ENCOUNTER 2017-07-10 16:36 | Inpatient (IN) | payer MEDICAID ==
--- NOTE | 2017-07-10 16:39 | ED Physician Documentation ---
PD HPI FOCAL NEURO - Stated complaint Stated Complaint: POSS CVA - History obtained from History obtained from: Patient, EMS - History of Present Illness Timing - onset: How many minutes ago (35) Timing - duration: Minutes (35) Timing - details: Abrupt onset, Still present Severity of deficit: Moderate (right facial droop, right arm weakness, and trouble speaking.) Weakness: Face, Arm, Hand, Right Numbness: Face, Hand, Right Associated symptoms: No: Headache, Nausea / vomiting, Seizure, Fall, Head injury , Chest pain Contributing factors: negative: Anticoagulated, Vascular dz, Atrial fibrillation Baseline status: positive: A&OX3, ambulatory, indep Similar symptoms before: Has not had sx before Review of Systems Constitutional: denies: Fever, Chills Nose: denies: Rhinorrhea / runny nose, Congestion Throat: denies: Sore throat Cardiac: denies: Chest pain / pressure, Palpitations Respiratory: denies: Cough GI: denies: Abdominal Pain, Vomiting, Diarrhea Musculoskeletal: reports: Back pain (chronic) PD PAST MEDICAL HISTORY - Past Medical History Cardiovascular: None Respiratory: None Neuro: None Endocrine/Autoimmune: None GI: GERD [place] [employer]: Breast cancer : None HEENT: None Psych: Anxiety Musculoskeletal: None Derm: None - Past Surgical History Past Surgical History: Yes General: Appendectomy /[employer]: Mastectomy - Present Medications Home Medications: Ambulatory Orders Medication Instructions Recorded Confirmed Acetaminophen [Tylenol Extra 1,000 mg PO Q6HR PRN 02/27/17 05/15/17 Strength] Melatonin 3 mg PO DAILY 03/16/17 07/01/17 HYDROmorphone [Dilaudid] 2 - 4 mg PO Q4H PRN #20 tablet 07/01/17 - Allergies Allergies/Adverse Reactions: Allergies Allergy/AdvReac Type Severity Reaction Status Date / Time cortisone Allergy Unknown Verified 07/01/17 11:02 dexamethasone Allergy Unknown Verified 07/01/17 11:02 epinephrine Allergy Unknown Verified 07/01/17 11:02 erythromycin base Allergy Unknown Verified 07/01/17 11:02 [Erythromycin Base] hydrocortisone Allergy Unknown Verified 07/01/17 11:02 [From Cortizone-10] lorazepam [From Ativan] Allergy Hallucinati Verified 07/01/17 11:02 ons prednisone Allergy Unknown Verified 07/01/17 11:02 Sulfa (Sulfonamide Allergy Unknown Verified 07/01/17 11:02 Antibiotics) trazodone Allergy Edema Verified 07/01/17 11:02 NSAIDS (Non-Steroidal AdvReac Unknown Verified 07/01/17 11:02 Anti-Inflamma - Living Situation Living Situation: reports: With caregiver(s) Living Arrangement: reports: At home - Social History Does the pt smoke?: No Smoking Status: Never smoker Does the pt drink ETOH?: No Does the pt have substance abuse?: No - Family History Family history: reports: Non contributory - Immunizations Immunizations are current?: Yes - POLST Patient has POLST: No PD ED PE NORMAL - Vitals Vital signs reviewed: Yes - General General: Alert and oriented X 3, Well developed/nourished - HEENT HEENT: Atraumatic, Moist mucous membranes, Pharynx benign, Other (right mild facial droop) - Neck Neck: Supple, no meningeal sign, No adenopathy, No JVD, No bruit - Cardiac Cardiac: RRR, No murmur - Respiratory Respiratory: Clear bilaterally - Abdomen Abdomen: Soft, Non tender - Back Back: No CVA TTP - Derm Derm: Normal color, Warm and dry - Extremities Extremities: Other (right leg pain with movement and touching, baseline per caregiver. ) - Neuro Neuro: No sensory deficit, Other (right arm mild weakness with slight drift on exam. ). No: Normal speech (expressive aphasia. ) Eye Opening: Spontaneous Motor: Obeys Commands Verbal: Oriented GCS Score: 15 - Psych Psych: Normal mood NIHSS - Level of Consciousness Level of consciousness: (0) Alert, Keenly responsive LOC Questions: (0) Answers both Q's correct LOC Commands: (0) Performs both correctly - Gaze Best Gaze: (0) Normal - Visual Visual: (1) Partial hemianopia (left lateral field on left eye) - Facial Palsy Facial Palsy: (1) Minor paralysis (right) - Motor Arms (both separate) Motor Arm (right): (1) Drift Motor Arm (left): (0) No drift - Motor Legs (both separate) Motor Leg (right): (0) No drift Motor Leg (left): (0) No drift - Limb Ataxia Limb Ataxia: (0) Absent - Sensory Sensory: (0) Normal - Best Language Best Language: (1) [id number] - Dysarthria Dysarthria: (0) Normal - Extinction and Inattention (formally neg Extinction and inattention: (0) No abnormality - Total Score/Results Total Score/Result: 4 Results - Vitals Vitals: Vital Signs - 24 hr 07/10/17 07/10/17 16:36 17:37 Temperature 36.5 C Heart Rate 107 H 97 Respiratory 18 20 Rate Blood Pressure 117/92 H O2 Saturation 100 97 Oxygen O2 Source Room air - Labs Labs: Laboratory Tests 07/10/17 07/10/17 07/10/17 16:54 16:54 16:54 WBC 5.7 RBC 4.62 Hgb 14.3 Hct 41.9 MCV 90.7 MCH 31.0 MCHC 34.2 RDW 13.3 Plt Count 222 MPV 7.0 L Neut # 4.3 Lymph # 0.8 L [place] # 0.5 Eos # 0.1 Baso # 0.0 Absolute Nucleated RBC 0.00 Nucleated RBC % 0.0 ESR 15 Sodium 135 Potassium 3.2 L Chloride 98 L Carbon Dioxide 24 Anion Gap 13.0 BUN 17 Creatinine 0.6 Estimated GFR (MDRD) 101 Glucose 180 H Calcium 11.3 H Magnesium 1.3 L Total Bilirubin 0.5 AST 25 ALT 25 Alkaline Phosphatase 34 L Troponin I Total Protein 7.6 Albumin 4.0 Globulin 3.6 Albumin/Globulin Ratio 1.1 Lipase 20 L 07/10/17 16:54 WBC RBC Hgb Hct MCV MCH MCHC RDW Plt Count MPV Neut # Lymph # [place] # Eos # Baso # Absolute Nucleated RBC Nucleated RBC % ESR Sodium Potassium Chloride Carbon Dioxide Anion Gap BUN Creatinine Estimated GFR (MDRD) Glucose Calcium Magnesium Total Bilirubin AST ALT Alkaline Phosphatase Troponin I < 0.04 Total Protein Albumin Globulin Albumin/Globulin Ratio Lipase - Rads (name of study) head CT Radiology: Prelim report reviewed, Discussed with rads (no acute process seen) PD MEDICAL DECISION MAKING - ED course Complexity details: reviewed results (no acute on head CT; rechecked patient and speech improving some, right arm better movement. I discussed TPA and clot retrieval treatments and patients says she would not want either of those interventions. Thus, Neurology not consulted. Given ASA. ), considered differential, d/w patient, d/w remediation consultant (Hospitalist) Departure - Departure Disposition: ED Place in Observation Clinical Impression: Cerebrovascular accident (CVA), Aphasia, Weakness of right side of body Condition: Stable Discharge Date/Time: 07/10/17 21:30
[2017-07-10] MEDS ORDERED: SODIUM CHLORIDE 0.9% 1,000 ML IV ONE (16:50)
[2017-07-10 17:01] LABS: BASOPHILS % (AUTO) 0.3 %; EOSINOPHILS # (AUTO) 0.1 10^3/uL (0.0-0.7); EOSINOPHILS % (AUTO) 1.7 %; HCT - HEMATOCRIT 41.9 % (37.0-47.0); HGB - HEMOGLOBIN 14.3 g/dL (12.0-16.0); LYMPHOCYTES # (AUTO) 0.8 10^3/uL (1.5-3.5); LYMPHOCYTES % (AUTO) 13.3 %; MEAN CORPUSCULAR HGB CONC 34.2 g/dL (32.0-36.0); MEAN CORPUSCULAR VOLUME 90.7 fL (81.0-99.0); MONOCYTES # (AUTO) 0.5 10^3/uL (0.0-1.0); NEUTROPHILS # (AUTO) 4.3 10^3/uL (1.5-6.6); NEUTROPHILS % (AUTO) 75.7 %; RED BLOOD COUNT 4.62 10^6/uL (4.20-5.40); RED CELL DISTRIBUTION WIDTH 13.3 % (12.0-15.0); UNCORRECTED WHITE BLOOD COUNT 5.7 x10^3/uL; WHITE BLOOD COUNT 5.7 x10^3/uL (4.8-10.8)
[2017-07-10 17:09] LABS: ALBUMIN/GLOBULIN RATIO 1.1 (1.0-2.2); BILIRUBIN,TOTAL 0.5 mg/dL (0.2-1.0); CALCIUM 11.3 mg/dL (8.5-10.3); CREATININE 0.6 mg/dL (0.4-1.0); MAGNESIUM 1.3 mg/dL (1.7-2.8); POTASSIUM 3.2 mmol/L (3.5-5.0); TOTAL PROTEIN 7.6 g/dL (6.7-8.2)
--- NOTE | 2017-07-10 17:16 | CT Preliminary Report ---
Exam: CT HEAD W/O STROKE PROTOCOL IMPRESSION: No hemorrhage, mass effect or localizing edema. Basal ganglia hypodensities are probably small vessel type infarcts and more likely old. Critical test. [facility] SITE ID: [id number]
--- NOTE | 2017-07-10 17:19 | CT Report ---
EXAM: CT HEAD EXAM DATE: 07/10/2017 05:05 PM. CLINICAL HISTORY: Aphasia (moderate) and right weakness (mild). COMPARISON: 04/18/2017. TECHNIQUE: Multiaxial CT images were obtained from the foramen magnum to the vertex. Reformats: Coron al. IV contrast: None. In accordance with CT protocol optimization, one or more of the following dose reduction techniques w ere utilized for this exam: automated exposure control, adjustment of mA and/or KV based on patient s ize, or use of iterative reconstructive technique. FINDINGS: Parenchyma: Negative for acute intracranial hemorrhage. No localizing edema. No mass effect or midlin e shift. There is ill-defined hypodensity in the bilateral basal ganglia. Extraaxial Spaces: No subdural or epidural collections identified. Ventricles: Normal in size and position. Sinuses and Orbits: Imaged paranasal sinuses, orbits, and mastoids show no significant abnormality. Bones: No evidence of fracture or calvarial defect. Other: None. IMPRESSION: No hemorrhage, mass effect or localizing edema. Basal ganglia hypodensities are probably small vessel type infarcts and more likely old. Critical test. [facility] Referring Provider Line: [phone] SITE ID: [id number]
[2017-07-10] MEDS ORDERED: ASPIRIN CHEW 81 MG TABLET PO STA (17:37)
[2017-07-10] MEDS ORDERED: ASPIRIN CHEW 81 MG TABLET ONE (17:55)
[2017-07-10] MEDS ORDERED: IOPAMIDOL-300 100 ML VIAL ONE (17:57)
[2017-07-10] MEDS ORDERED: IOPAMIDOL-300 100 ML VIAL IVP ONE (18:44)
--- NOTE | 2017-07-10 19:24 | CT Preliminary Report ---
Exam: CT NECK ANGIO IMPRESSION: 1. Multiple sclerotic osseous foci are present worrisome for lesions that could represent sclerotic/b lastic metastasis. 2. No acute abnormality or significant stenosis of the cervical vertebral or carotid arteries. [facility] SITE ID: [id number]
--- NOTE | 2017-07-10 19:35 | CT Preliminary Report ---
Exam: CT HEAD ANGIO Impression: 1. Unremarkable head CTA, no evidence for proximal intracranial large artery filling defect, occlusio n or flow-limiting stenosis. 2. No evidence for aneurysm of the [place]. 3. No evidence for abnormal brain enhancement. [facility] SITE ID: [id number]
--- NOTE | 2017-07-10 20:11 | HISTORY & PHYSICAL EXAMINATION ---
Chief Complaint - Chief Complaint Chief Complaint: Acute righ sided weakness with associated righ facial numbness and leg pain Stroke/TIA/Neuro Template - Admitted From Admitted from: ED - History Obtained From Records Reviewed: RN notes reviewed, Old records reviewed History obtained from: Patient, Caregiver Exam limitations: Other (aphasia with dysarthria) - History of Present Illness Severity at the worst: reports: Moderate (improving) Symptom Quality: reports: Numbness, Tingling, Facial droop, Expressive aphasia, Other (bilateral "burning" leg pain Left>right) Context- Symptoms started w/: reports: Awake, Resting Timing: reports: Constant Date of onset: 07/10/17 Associated symptoms: reports: General Weakness, Palpitations HPI Comment/Other: This is 62 y/o white female who is chronically debilitated with hx of breast cancer with bony mets s/p chemotx and radiation. Patient states that she was on dexamethasone and finished taking drug in February this year, denies recent falls but mentions chronic back pain for which she denies narcotic pain treatments other than tylenol her chronic back pain. She has a hx of anxiety, and is visible having difficulty finding words for to explain her medical conditions; her memory is conserved but denies fevers, chills, nausea, emesis, GI/ symptoms. Patient states a chronic leg pain with debility for which she has a caregiver who sees her 7x/week. She came in with no headaches, or visual disturbances, CT head as well as CTA of head and neck were unremarkable, labs revealed a hypokalemia and low mag, trop was neg, slightly tachycardic on exam. No tele neuro was done in ED. Patient VSS were HD stable, and showed a stroke scale of 4. Patient did meet TPA guidelines but refused tx on 3 occasions in ED. Patient very adament on not receiving pharmacological agents for treatment to her TIA/CVA but has agreed to ASA, K and mag supplementation and possibly statin agent for hyperliplidemia if present. 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 : positive: None HEENT: positive: None Psych: positive: Anxiety (possibly co-existing fibromyalgia) Musculoskeletal: positive: None, Other (possible fibromyalgia ) Derm: positive: None MRSA Hx?: No - Past Surgical History General: positive: Appendectomy /DROP BOARD WORKER: positive: Mastectomy Social & Family Hx - Living Situation Living Situation: Alone - Social History Does the pt smoke?: No Smoking Status: Never smoker Does the pt drink ETOH?: No ETOH Use: Other (hx etoh abuse in the past and is currently in AA) Does the pt have substance abuse?: No - POLST Patient has POLST: No POLST Status: Full Code - Family History Family History: Other family: CAD (patient can't recall ), Cancer (can't recall) , CVA/TIA (cant recall), AL (can't recall ) Meds/Allgy - Home Medications Home Medications: Ambulatory Orders Medication Instructions Recorded Confirmed Acetaminophen [Tylenol Extra 1,000 mg PO Q6HR PRN 02/27/17 05/15/17 Strength] Melatonin 3 mg PO DAILY 03/16/17 07/01/17 HYDROmorphone [Dilaudid] 2 - 4 mg PO Q4H PRN #20 tablet 07/01/17 - Allergies Allergies/Adverse Reactions: Allergies Allergy/AdvReac Type Severity Reaction Status Date / Time cortisone Allergy Unknown Verified 07/01/17 11:02 dexamethasone Allergy Unknown Verified 07/01/17 11:02 epinephrine Allergy Unknown Verified 07/01/17 11:02 erythromycin base Allergy Unknown Verified 07/01/17 11:02 [Erythromycin Base] hydrocortisone Allergy Unknown Verified 07/01/17 11:02 [From Cortizone-10] lorazepam [From Ativan] Allergy Hallucinati Verified 07/01/17 11:02 ons prednisone Allergy Unknown Verified 07/01/17 11:02 Sulfa (Sulfonamide Allergy Unknown Verified 07/01/17 11:02 Antibiotics) trazodone Allergy Edema Verified 07/01/17 11:02 NSAIDS (Non-Steroidal AdvReac Unknown Verified 07/01/17 11:02 Anti-Inflamma Review of Systems - Constitutional Constitutional: reports: Weakness. denies: Fatigue, Fever, Chills - Eyes Eyes: denies: Pain, Irritation, Amaurosis, Blurred vision - Ears, Nose & Throat Ears, Nose & Throat: denies: Tinnitus, Vertigo - Cardiovascular Cariovascular: reports: Palpitations. denies: Irregular heart rate, Chest pain , Lightheadedness, Syncope - Respiratory Respiratory: denies: Cough, Sputum production, Wheezing, Stridor, Pleuritic pain - Gastrointestinal Gastrointestinal: reports: Abdominal pain, Reflux/heartburn, Bloating. denies: Abdominal distention, Constipation, Black stools, Bloody stools, Nausea - Genitourinary Genitourinary: denies: Dysuria, Urgency, Incontinence, Flank pain, Nocturia - Musculoskeletal Musculoskeletal: reports: Muscle pain, Muscle aches (to lower extremities left more than the right), Muscle weakness - Integumentary Integumentary: denies: Rash - Neurological Neurological: reports: Focal weakness, Numbness, Memory problems, Abnormal gait , Slurred speech - Endocrine Endocrine: denies: Polyuria, Polyphagia, Intolerance to cold, Intolerance to heat - Hematologic/Lymphatic Hematologic/Lymphatic: denies: Anemia, Bruising, Blood clots, Lymphadenopathy, Bleeding tendencies, Recurrent infections Exam - Vital Signs Reviewed Vital Signs: Yes Vital Signs: Vital Signs x48h Temp Pulse Resp BP Pulse Ox 07/10/17 17:37 97 20 97 07/10/17 16:36 36.5 C 107 H 18 117/92 H 100 - Physical Exam General Appearance: positive: No acute distress, Anxious Eyes Bilateral: positive: Normal inspection, PERRL, EOMI ENT: positive: ENT inspection nml, Pharynx nml, No signs of dehydration Neck: positive: Nml inspection, Thyroid nml, No JVD. negative: Stiff neck, Kernig's sign, Brudzinski's sign, Carotid bruit Respiratory: positive: Breath sounds nml. negative: Chest non-tender, No respiratory distress, Wheezes, Rales, Rhonchi Cardiovascular: positive: Regular rate & rhythm, No murmur, No gallop, Tachycardia. negative: PMI displaced laterally, JVD present, Systolic murmur, Diastolic murmur Abdomen: positive: Nml bowel sounds, Tenderness (to epigastrium). negative: No distention, Hepatomegaly, Splenomegaly Back: positive: Nml inspection Skin: negative: Color nml, No rash, Warm, Diaphoresis Extremities: positive: Pedal edema, Calf tenderness, Other (painful left foot and right foot.). 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 Results - Lab Results Fish Bones: 07/10/17 16:54 07/10/17 16:54 Other Lab Results: Lab Results x24hrs 07/10/17 07/10/17 07/10/17 Range/Units 16:54 16:54 16:54 WBC (4.8-10.8) x10^3/uL RBC (4.20-5.40) 10^6/uL Hgb (12.0-16.0) g/dL Hct (37.0-47.0) % MCV (81.0-99.0) fL MCH (27.0-31.0) pg MCHC (32.0-36.0) g/dL RDW (12.0-15.0) % Plt Count (130-450) 10^3/uL MPV (7.9-10.8) fL Neut # (1.5-6.6) 10^3/uL Lymph # (1.5-3.5) 10^3/uL Mcdonald # (0.0-1.0) 10^3/uL Eos # (0.0-0.7) 10^3/uL Baso # (0.0-0.1) 10^3/uL Absolute Nucleated RBC x10^3/uL Nucleated RBC % /100WBC ESR 15 (0-30) mm/Hr Sodium 135 (135-145) mmol/L Potassium 3.2 L (3.5-5.0) mmol/L Chloride 98 L (101-111) mmol/L Carbon Dioxide 24 (21-32) mmol/L Anion Gap 13.0 (6-13) BUN 17 (6-20) mg/dL Creatinine 0.6 (0.4-1.0) mg/dL Estimated GFR (MDRD) 101 (>89) Glucose 180 H (70-100) mg/dL Calcium 11.3 H (8.5-10.3) mg/dL Magnesium 1.3 L (1.7-2.8) mg/dL Total Bilirubin 0.5 (0.2-1.0) mg/dL AST 25 (10-42) IU/L ALT 25 (10-60) IU/L Alkaline Phosphatase 34 L (42-121) IU/L Troponin I < 0.04 (<0.49) ng/mL Total Protein 7.6 (6.7-8.2) g/dL Albumin 4.0 (3.2-5.5) g/dL Globulin 3.6 (2.1-4.2) g/dL Albumin/Globulin Ratio 1.1 (1.0-2.2) Lipase 20 L (22-51) U/L 07/10/17 Range/Units 16:54 WBC 5.7 (4.8-10.8) x10^3/uL RBC 4.62 (4.20-5.40) 10^6/uL Hgb 14.3 (12.0-16.0) g/dL Hct 41.9 (37.0-47.0) % MCV 90.7 (81.0-99.0) fL MCH 31.0 (27.0-31.0) pg MCHC 34.2 (32.0-36.0) g/dL RDW 13.3 (12.0-15.0) % Plt Count 222 (130-450) 10^3/uL MPV 7.0 L (7.9-10.8) fL Neut # 4.3 (1.5-6.6) 10^3/uL Lymph # 0.8 L (1.5-3.5) 10^3/uL Mcdonald # 0.5 (0.0-1.0) 10^3/uL Eos # 0.1 (0.0-0.7) 10^3/uL Baso # 0.0 (0.0-0.1) 10^3/uL Absolute Nucleated RBC 0.00 x10^3/uL Nucleated RBC % 0.0 /100WBC ESR (0-30) mm/Hr Sodium (135-145) mmol/L Potassium (3.5-5.0) mmol/L Chloride (101-111) mmol/L Carbon Dioxide (21-32) mmol/L Anion Gap (6-13) BUN (6-20) mg/dL Creatinine (0.4-1.0) mg/dL Estimated GFR (MDRD) (>89) Glucose (70-100) mg/dL Calcium (8.5-10.3) mg/dL Magnesium (1.7-2.8) mg/dL Total Bilirubin (0.2-1.0) mg/dL AST (10-42) IU/L ALT (10-60) IU/L Alkaline Phosphatase (42-121) IU/L Troponin I (<0.49) ng/mL Total Protein (6.7-8.2) g/dL Albumin (3.2-5.5) g/dL Globulin (2.1-4.2) g/dL Albumin/Globulin Ratio (1.0-2.2) Lipase (22-51) U/L - Diagnostic Imaging Results Diagnostic Imaging Results: positive: Final report reviewed - EKG Results EKG Interpreted Independently: Yes EKG Comparison: positive: No prior EKG ARRA - Anticipated LOS Anticipated Stay Length: 2 or more midnights - AMI - Statin at Admit Aspirin Prescribed on Admit: Yes - Stroke - Rehab Assessment Rehab services assessment to be ordered?: Yes - DVT/VTE - Prophylaxis VTE/DVT Device ordered at admit?: Yes Not Ordered - Medical Reason: Not tolerated (patient has pain to bilateral extremities) VTE/DVT Prophylaxis med ordered at admit?: No Not Ordered - Medical Reason: Patient/Family refused Not Ordered - Patient Refusal: Refusal by patient Impression/Plan - Problem List Problem List: 1. Acute TIA/CV. Place in [facility], obs status for now. Consider MRI brain in am. Unclear if this is pure motor/or mixed sensory/motor to internal capsule. Would recommend stroke prevention measures with ASA 81 mg po daily. Check lipids, statin if needed. BP mgmt although no hypertension seen. PT/OT for neuro rehab. 2. Hypokalemia/hypomagnesemia. Replete electrolytes, ivf's prn. Would check other lyte d/o. 3. Acute/chronic lower leg pain. I would query if this is not a DVT would order US BLLE to rule this out. D-dimer, she has RF's immobility, cancer mets, obesity , on steroids. Check serum uric acid. IV toradol. 4. Hx Breast CA with mets to bone. Patient may need CT scan of L-spine or T- spine to r/o patholigical fractures associated with mets. Pain control to avoid narcotics and is amendable to IV toradol and tylenol. Neurorehab with PT/OT. 5. Dysarthria with improved broca's aphasia and right sided facial weakness with improved hemiplegia/hemiparesis. Would continue with stroke prevention measures per above. PT/OT. Patient has refused medications such as TPA which would improve her stroke mortality morbidity, this has been explained to her already in ED. Daily ASA, aspiration precautions, as well as swallow eval to r/ o late effects of CVA oropharyngeal dyspahgia; food consistency. 6. DVT/GI ppx; SCD's if tolerates. Decline heparin despite risks of DVT. PPI ppx with protonix for her GERD. Total time: 70 min Billing: OBS-3
--- NOTE | 2017-07-10 20:50 | CT Report ---
EXAM: CT ANGIOGRAM NECK EXAM DATE: 07/10/2017 06:33 PM. CLINICAL HISTORY: CVA symptoms. Reported history of right facial droop, right arm weakness and diffic ulty speaking. Also reported numbness of the face and right hand. COMPARISON: None. TECHNIQUE: Routine axial helical imaging was performed from the skull base through the aortic arch. I V Contrast: 100 mL Isovue-300. Reconstructions: Routine multiplanar 3D MIP reconstructions. Evaluatio n of arterial stenosis is based on a NASCET method of measurement. In accordance with CT protocol optimization, one or more of the following dose reduction techniques w ere utilized for this exam: automated exposure control, adjustment of mA and/or KV based on patient s ize, or use of iterative reconstructive technique. FINDINGS: Multiple foci of nodular and somewhat masslike focal bony sclerosis, most notable for example in the T4 vertebral body, but also involving the medial end of the left second rib, the right C2 lamina and the T1, T2, and T3 vertebral bodies. Grossly clear lung apices as far as partially visualized. Unremarkable appearance of the cervical vertebral arteries, left dominant. No acute abnormality or focal flow-limiting stenosis of the cervical carotid arteries. Minimal athero sclerotic disease at the left cervical carotid bifurcation. IMPRESSION: 1. Multiple sclerotic osseous foci are present, worrisome for lesions that could represent sclerotic/ blastic metastasis. 2. No acute abnormality or significant stenosis of the cervical, vertebral or carotid arteries. [facility] Referring Provider Line: [phone] SITE ID: [id number]
--- NOTE | 2017-07-10 20:50 | CT Report ---
EXAM: CT ANGIOGRAM HEAD. CT SCAN OF THE HEAD WITHOUT AND WITH CONTRAST. EXAM DATE: 07/10/2017 06:33 PM CLINICAL HISTORY: Report of acute stroke symptoms including right facial droop, right arm weakness, t rouble speaking and weakness of the face, arm and hand (right). COMPARISON: No prior head CTA. TECHNIQUE: 1. CT Scan Head: Using a multidetector scanner, axial images were acquired from the foramen magnum to the skull vertex following contrast administration. 2. CT Angiogram: Using a multidetector scanner, high-resolution axial images were acquired from the s kull base through vertex following rapid infusion of intravenous contrast. Reformats: Multiplanar MIP reformats were reconstructed. Nascet criteria used for stenosis measurement. IV Contrast: 100 mL Isovue-300. In accordance with CT protocol optimization, one or more of the following dose reduction techniques w ere utilized for this exam: automated exposure control, adjustment of mA and/or KV based on patient s ize, or use of iterative reconstructive technique. FINDINGS: Brain CT with contrast: No abnormal brain enhancement. Head CT angiogram: No intracranial vertebrobasilar insufficiency. Patent unremarkable-appearing intradural vertebral art eries, the left is dominant. Unremarkable appearance of the basilar artery and the proximal segments of the posterior cerebral arteries. Patent distal internal carotid arteries. No proximal flow limiting stenosis, occlusion or filling def ect of the proximal segments of the anterior or middle cerebral arteries. Patent anterior communicati ng artery. No evidence for aneurysm of the [place]. IMPRESSION: 1. Unremarkable head CTA, no evidence for proximal intracranial large artery filling defect, occlusio n or flow-limiting stenosis. 2. No evidence for aneurysm of the [place]. 3. No evidence for abnormal brain enhancement. [facility] Referring Provider Line: [phone] SITE ID: [id number]
[2017-07-10] MEDS ORDERED: KETOROLAC 30 MG/ML VIAL IVP SCH (20:51)
[2017-07-10] MEDS ORDERED: PANTOPRAZOLE 40 MG TABLET PO SCH (20:52)
[2017-07-10] MEDS ORDERED: POTASSIUM CHLORIDE 20 MEQ TABLET PO SCH (20:56)
[2017-07-10] MEDS ORDERED: METOPROLOL SUCCINATE 25 MG TABLET PO PRN (21:58)
[2017-07-10] MEDS: SODIUM CHLORIDE FLUSH 0.9% 10 ML SYRINGE IVP SCH (22:03)
[2017-07-10] MEDS: ATORVASTATIN 40 MG TABLET PO SCH (22:06)
[2017-07-10] MEDS: ACETAMINOPHEN 500 MG TABLET PO PRN (22:42)
[2017-07-10] MEDS: MAGNESIUM OXIDE 400 MG TABLET PO SCH (22:50)
[2017-07-10] MEDS: GABAPENTIN 100 MG CAPSULE PO SCH (22:50)
[2017-07-11] MEDS ORDERED: MORPHINE 2 MG/ML SYRINGE IVP PRN (01:00)
--- NOTE | 2017-07-11 01:06 | Ultrasound Preliminary Report ---
Exam: US DUPLEX EXT VEINS BILATERAL IMPRESSION: No evidence for deep venous thrombosis bilaterally. [facility] SITE ID: [id number]
--- NOTE | 2017-07-11 01:09 | Ultrasound Report ---
EXAM: BILATERAL LOWER EXTREMITY VENOUS ULTRASOUND EXAM DATE: 07/10/2017 11:05 PM. CLINICAL HISTORY: Bilateral lower extremity pain COMPARISON: None. TECHNIQUE: Real-time sonographic vascular imaging was performed by the reservations sales agent through the lower extremities utilizing both color-flow and Doppler spectral analysis. Multiple small business sales representative static i mages were saved for review. FINDINGS: Right: Common Femoral Vein (CFV): Normal. CFV-GSV Junction: Normal. Profunda Femoral Vein (PFV): Normal. Femoral Vein (FV) Prox: Normal. Femoral Vein (FV) Mid: Normal. Femoral Vein (FV) Dist: Normal. Popliteal Vein: Normal. Posterior Tibial Veins: Normal. Peroneal Veins: Nodule visualized. Left: Common Femoral Vein (CFV): Normal. CFV-GSV Junction: Normal. Profunda Femoral Vein (PFV): Normal. Femoral Vein (FV) Prox: Normal. Femoral Vein (FV) Mid: Normal. Femoral Vein (FV) Dist: Normal. Popliteal Vein: Normal. Calf Veins: Not well-visualized. Other: None. IMPRESSION: No evidence for deep venous thrombosis bilaterally. [facility] Referring Provider Line: [phone] SITE ID: [id number]
[2017-07-11] MEDS: SODIUM CHLORIDE FLUSH 0.9% 10 ML SYRINGE IVP PRN ×2 (01:20→10:59)
[2017-07-11] MEDS: CALCIUM CARBONATE CHEW 500 MG TABLET PO SCH ×3 (01:43→21:04)
[2017-07-11] MEDS ORDERED: CALCIUM CARBONATE CHEW 500 MG TABLET ONE (01:48)
[2017-07-11] MEDS: HYDROcod/ACETAM 5/325 MG TABLET PO PRN ×4 (02:42→21:21)
[2017-07-11] MEDS: ACETAMINOPHEN 500 MG TABLET PO PRN ×2 (05:22→18:02)
[2017-07-11 05:34] LABS: BASOPHILS % (AUTO) 0.5 %; EOSINOPHILS # (AUTO) 0.1 10^3/uL (0.0-0.7); EOSINOPHILS % (AUTO) 1.6 %; HCT - HEMATOCRIT 37.4 % (37.0-47.0); HGB - HEMOGLOBIN 12.7 g/dL (12.0-16.0); LYMPHOCYTES # (AUTO) 0.9 10^3/uL (1.5-3.5); LYMPHOCYTES % (AUTO) 15.5 %; MEAN CORPUSCULAR VOLUME 91.3 fL (81.0-99.0); MEAN PLATELET VOLUME 6.6 fL (7.9-10.8); MONOCYTES # (AUTO) 0.6 10^3/uL (0.0-1.0); MONOCYTES % (AUTO) 10.6 %; NEUTROPHILS # (AUTO) 4.3 10^3/uL (1.5-6.6); NEUTROPHILS % (AUTO) 71.8 %; RED CELL DISTRIBUTION WIDTH 13.3 % (12.0-15.0)
[2017-07-11 05:44] LABS: INR 1.1 (0.8-1.2)
[2017-07-11 05:48] LABS: HEMOGLOBIN A1C 0.64 g/dL
[2017-07-11 05:51] LABS: PARTIAL THROMBOPLASTIN TIME 26.5 secs (24.9-33.3)
[2017-07-11] MEDS: MAGNESIUM OXIDE 400 MG TABLET PO SCH ×3 (06:40→21:04)
[2017-07-11] MEDS: GABAPENTIN 100 MG CAPSULE PO SCH ×3 (06:40→21:05)
[2017-07-11] MEDS: SODIUM CHLORIDE FLUSH 0.9% 10 ML SYRINGE IVP SCH ×3 (06:41→21:05)
[2017-07-11 06:54] LABS: ALBUMIN/GLOBULIN RATIO 1.2 (1.0-2.2); BILIRUBIN,TOTAL 0.4 mg/dL (0.2-1.0); CALCIUM 9.7 mg/dL (8.5-10.3); CREATININE 0.6 mg/dL (0.4-1.0); MAGNESIUM 1.3 mg/dL (1.7-2.8); POTASSIUM 3.3 mmol/L (3.5-5.0); URIC ACID 4.8 mg/dL (2.6-7.2)
[2017-07-11] MEDS: POLYETHYLENE GLYCOL 3350 17 GM PACKET PO SCH (09:08)
[2017-07-11] MEDS: ASPIRIN EC 81 MG TABLET PO SCH (09:16)
[2017-07-11] MEDS ORDERED: MORPHINE 2 MG/ML SYRINGE IVP SCH (10:49)
[2017-07-11] MEDS ORDERED: GADOBUTROL 10 MMOL/10 ML VIAL ONE (10:57)
[2017-07-11] MEDS ORDERED: GADOBUTROL 10 MMOL/10 ML VIAL IVP ONE (12:27)
--- NOTE | 2017-07-11 13:32 | MRI Preliminary Report ---
Exam: MRI BRAIN W/O IMPRESSION: 1.No MRI evidence for acute intracranial abnormality such as hemorrhage or stroke. 2. Mild multifocal nonspecific cerebral white matter disease, the usual gamut of white matter conditi ons may be considered including changes secondary to chronic microangiopathy. [facility] SITE ID: [id number]
--- NOTE | 2017-07-11 13:54 | MRI Preliminary Report ---
Exam: MRI PELVIS W/WO IMPRESSION: 1. Multiple sclerotic metastatic foci within the pelvis as before. 2. 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 3. Pelvic Kidney. [facility] MUSCULOSKELETAL RADIOLOGY SECTION SITE ID: [id number]
--- NOTE | 2017-07-11 14:02 | MRI Report ---
EXAM: MRI BRAIN WITHOUT CONTRAST EXAM DATE: 07/11/2017 11:44 AM. CLINICAL HISTORY: Reported clinical concern for ischemic infarct. Recent symptoms of right facial maureen op, right arm weakness, and difficulty speaking with facial weakness. COMPARISON: No prior MRI. TECHNIQUE: Multiplanar, multisequence T1-weighted and fluid-sensitive MR sequences of the brain were performed. Sequences optimized for routine evaluation. Other: None. IV Contrast: None. FINDINGS: Brain Volume: Normal for age. Parenchyma/Dura: No restricted diffusion to suggest acute or recent ischemic infarct of the brain. No cerebral hemorrhage. No mass effect, midline shift or abnormal subdural fluid collection. No midli ne developmental cerebral anomaly. There are multiple scattered foci of abnormal patchy, nodular and confluent T2 hyperintensity involvi ng the deep and periventricular regions of both cerebral hemispheres. No focal posterior fossa plaque -like T2 hyperintensity. Ventricles/Cisterns: No hydrocephalus. No abnormal extra-axial fluid collection or hemorrhage. Orbits: Symmetric and unremarkable. Sella Turcica: No expansile mass, grossly unremarkable unenhanced appearance of the pituitary. IAC: Allowing for noncontrast technique, no evidence for significant asymmetry or expansile mass. Vasculature: The major arterial skull base flow voids are present. Sinuses: No acute sinus or mastoid disease. Bones: No focal pathologic-appearing marrow signal changes in the skull or clivus. Other: None. IMPRESSION: 1. No MRI evidence for acute intracranial abnormality such as hemorrhage or stroke. 2. Mild multifocal nonspecific cerebral white matter disease, the usual gamut of white matter conditi ons may be considered including changes secondary to chronic microangiopathy. [facility] Referring Provider Line: [phone] SITE ID: [id number]
--- NOTE | 2017-07-11 16:11 | MRI Report ---
EXAM: MRI PELVIS WITHOUT AND WITH CONTRAST EXAM DATE: 07/11/2017 12:38 PM. CLINICAL HISTORY: Pain, numbness, ataxia. COMPARISON: CT 07/01/2017, MRI 03/05/2017. TECHNIQUE: Multiplanar, multisequence T1-weighted and fluid-sensitive sequences of the pelvis before and after administration of intravenous contrast. IV contrast: 9 mm Gadavist. Other: None. FINDINGS: Bones: There are multiple sclerotic lesions within the visualized bones of the pelvis consistent with metastatic disease. Index lesions are as follows: 1. Within the left ilium extending into the ischium and pubic bones, overall length of 1.5 cm. 2. Within the left pubic bone, measuring 4.3 cm in length. Overall these lesions are unchanged. Some reactive marrow edema is in the left femoral head. It is un clear whether this is reactive or a metastatic bony lesion. It is unchanged. No fractures. Lower Lumbar Spine: Unremarkable. Sacroiliac Joints: No effusion or sacroiliitis. Right Hip: No acetabular retroversion. Femoral head/neck offset is within normal limits. No effusion. Left Hip: No acetabular retroversion. Femoral head/neck offset is within normal limits. No effusion. Symphysis Pubis: Mild osteoarthritis is at the symphysis pubis. Musculature: Some mild muscle edema is demonstrated in the iliacus, right gluteus ashley, and medial adductor muscles bilaterally. 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 I t is stable compared to the prior exam. The other visualized pelvic organs are unremarkable. Other: The visualized sciatic nerves are unremarkable. No bursitis. The subcutaneous tissues are unre markable. No abscess or cellulitis. IMPRESSION: 1. Multiple sclerotic metastatic foci within the pelvis as before. 2. 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 3. Pelvic kidney. [facility] MUSCULOSKELETAL RADIOLOGY SECTION Referring Provider Line: [phone] SITE ID: [id number]
--- NOTE | 2017-07-11 16:38 | PROVIDER PROGRESS NOTE ---
Subjective - Prog Note Date Prog Note Date: 07/11/17 Prog Note Time: 16:00 - Subjective Pt reports feeling: No change Subjective: Tayla worries about "not getting to the bottom" of the cause of her chronic foot drop and recent right sided weakness and falls. She cannot tolerate ambulation for any length of time due to uncontrolled pain. She denies SOB, chest pain, N/V or a new cough. Current Medications - Current Medications Current Medications: Active Medications Acetaminophen (Tylenol) 1,000 mg PO Q6HR PRN PRN Reason: PAIN Last Admin: 07/11/17 05:22 Dose: 1,000 mg Acetaminophen/Hydrocodone Bitart ([place] 5/325) 1 tab PO Q4HR PRN PRN Reason: PAIN Last Admin: 07/11/17 13:55 Dose: 1 tab Aspirin (Ecotrin) 81 mg PO DAILY [facility] Last Admin: 07/11/17 09:16 Dose: 81 mg Atorvastatin Calcium (Lipitor) 40 mg PO QPM [facility] Last Admin: 07/10/17 22:06 Dose: Not Given Calcium Carbonate/Glycine (Tums) 500 mg PO TID [facility] Last Admin: 07/11/17 13:56 Dose: 500 mg Gabapentin (Neurontin) 100 mg PO TID [facility] Last Admin: 07/11/17 13:56 Dose: 100 mg Magnesium Oxide (Mag Ox) 400 mg PO TID [facility] Last Admin: 07/11/17 13:56 Dose: 400 mg Morphine Sulfate (Morphine) 0.5 mg IVP ONCE PRN PRN Reason: Breakthrough Pain Stop: 07/12/17 00:59 Last Admin: 07/11/17 01:19 Dose: 0.5 mg Melatonin 3 Mg 1 each PO QPM [facility] Polyethylene Glycol (Miralax) 17 gm PO DAILY [facility] Last Admin: 07/11/17 09:08 Dose: Not Given Sodium Chloride (Normal Saline Flush 0.9%) 10 ml IVP PRN PRN PRN Reason: NEEDED PER PROVIDER ORDERS Last Admin: 07/11/17 10:59 Dose: 10 ml Sodium Chloride (Normal Saline Flush 0.9%) 10 ml IVP Q8HR [facility] Last Admin: 07/11/17 13:56 Dose: Not Given Acetaminophen [Tylenol Extra Strength] 1,000 mg PO Q6HR PRN 02/27/17 Melatonin 6 mg PO QPM 03/16/17 Objective - Vital Signs/Intake & Output Reviewed Vital Signs: Yes Vital Signs: Vital Signs x48h Temp Pulse Resp BP Pulse Ox 07/11/17 13:00 37.4 C 94 16 118/75 96 07/11/17 09:00 36.3 C L 96 14 122/68 96 Intake & Output: Intake & Output 07/08/17 07/09/17 07/10/17 07/11/17 23:59 23:59 23:59 23:59 Intake Total 600 Output Total 420 300 Balance -420 300 - Objective General Appearance: positive: No acute distress, Alert ENT: positive: ENT inspection nml, Pharynx nml, No signs of dehydration Neck: positive: Nml inspection, Thyroid nml, No JVD, Trachea midline Respiratory: positive: Chest non-tender, No respiratory distress, Other ( diminished) Cardiovascular: positive: Regular rate & rhythm, No gallop Peripheral Pulses: 1+ Dorsalis pedis (R), 1+ Dorsalis pedis (L), 2+ Radial (R), 2+ Radial (L) Abdomen: positive: Non-tender, No organomegaly, Nml bowel sounds, No distention Back: positive: Nml inspection Skin: positive: Color nml, No rash, Warm, Dry Extremities: positive: Pedal edema, Joint swelling, Other (right foot drop/ weakness.) Neurologic/Psychiatric: positive: Oriented x3, CN's nml (2-12), Weakness, Sensory loss, Depressed mood/affect Reflexes: Bicep (R): 2+ (equal), Bicep (L): 2+ - Lab Results Fish Bones: 07/11/17 05:15 07/11/17 05:36 Other Labs: Lab Results x24hrs 07/11/17 07/11/17 07/11/17 Range/Units 05:36 05:15 05:15 WBC (4.8-10.8) x10^3/uL RBC (4.20-5.40) 10^6/uL Hgb (12.0-16.0) g/dL Hct (37.0-47.0) % MCV (81.0-99.0) fL MCH (27.0-31.0) pg MCHC (32.0-36.0) g/dL RDW (12.0-15.0) % Plt Count (130-450) 10^3/uL MPV (7.9-10.8) fL Neut # (1.5-6.6) 10^3/uL Lymph # (1.5-3.5) 10^3/uL [place] # (0.0-1.0) 10^3/uL Eos # (0.0-0.7) 10^3/uL Baso # (0.0-0.1) 10^3/uL Absolute Nucleated RBC x10^3/uL Nucleated RBC % /100WBC PT 12.0 (9.9-12.6) secs INR 1.1 (0.8-1.2) APTT 26.5 (24.9-33.3) secs D-Dimer (200.0-255.0) ng/mL Sodium 133 L (135-145) mmol/L Potassium 3.3 L (3.5-5.0) mmol/L Chloride 99 L (101-111) mmol/L Carbon Dioxide 22 (21-32) mmol/L Anion Gap 12.0 (6-13) BUN 19 (6-20) mg/dL Creatinine 0.6 (0.4-1.0) mg/dL Estimated GFR (MDRD) 101 (>89) Glucose 126 H (70-100) mg/dL Glycated Hemoglobin 6.6 H (4.6-6.2) % Estim Average Glucose 143 H (70-100) Uric Acid 4.8 (2.6-7.2) mg/dL Calcium 9.7 (8.5-10.3) mg/dL Magnesium 1.3 L (1.7-2.8) mg/dL Total Bilirubin 0.4 (0.2-1.0) mg/dL AST 23 (10-42) IU/L ALT 22 (10-60) IU/L Alkaline Phosphatase 28 L (42-121) IU/L Total Protein 6.0 L (6.7-8.2) g/dL Albumin 3.3 (3.2-5.5) g/dL Globulin 2.7 (2.1-4.2) g/dL Albumin/Globulin Ratio 1.2 (1.0-2.2) 07/11/17 07/10/17 Range/Units 05:15 21:09 WBC 6.0 (4.8-10.8) x10^3/uL RBC 4.10 L (4.20-5.40) 10^6/uL Hgb 12.7 (12.0-16.0) g/dL Hct 37.4 (37.0-47.0) % MCV 91.3 (81.0-99.0) fL MCH 31.0 (27.0-31.0) pg MCHC 34.0 (32.0-36.0) g/dL RDW 13.3 (12.0-15.0) % Plt Count 184 (130-450) 10^3/uL MPV 6.6 L (7.9-10.8) fL Neut # 4.3 (1.5-6.6) 10^3/uL Lymph # 0.9 L (1.5-3.5) 10^3/uL [place] # 0.6 (0.0-1.0) 10^3/uL Eos # 0.1 (0.0-0.7) 10^3/uL Baso # 0.0 (0.0-0.1) 10^3/uL Absolute Nucleated RBC 0.00 x10^3/uL Nucleated RBC % 0.0 /100WBC PT (9.9-12.6) secs INR (0.8-1.2) APTT (24.9-33.3) secs D-Dimer < 200.0 L (200.0-255.0) ng/mL Sodium (135-145) mmol/L Potassium (3.5-5.0) mmol/L Chloride (101-111) mmol/L Carbon Dioxide (21-32) mmol/L Anion Gap (6-13) BUN (6-20) mg/dL Creatinine (0.4-1.0) mg/dL Estimated GFR (MDRD) (>89) Glucose (70-100) mg/dL Glycated Hemoglobin (4.6-6.2) % Estim Average Glucose (70-100) Uric Acid (2.6-7.2) mg/dL Calcium (8.5-10.3) mg/dL Magnesium (1.7-2.8) mg/dL Total Bilirubin (0.2-1.0) mg/dL AST (10-42) IU/L ALT (10-60) IU/L Alkaline Phosphatase (42-121) IU/L Total Protein (6.7-8.2) g/dL Albumin (3.2-5.5) g/dL Globulin (2.1-4.2) g/dL Albumin/Globulin Ratio (1.0-2.2) - Diagnostic Imaging Diagnostic Imaging Results: positive: Prelim report reviewed, Final report reviewed Diagnostic Imaging Comments: Brain MRI 07/11/17: FINDINGS: Brain Volume: Normal for age. Parenchyma/Dura: No restricted diffusion to suggest acute or recent ischemic infarct of the brain. No cerebral hemorrhage. No mass effect, midline shift or abnormal subdural fluid collection. No midline developmental cerebral anomaly. There are multiple scattered foci of abnormal patchy, nodular and confluent T2 hyperintensity involving the deep and periventricular regions of both cerebral hemispheres. No focal posterior fossa plaque-like T2 hyperintensity. Ventricles/Cisterns: No hydrocephalus. No abnormal extra-axial fluid collection or hemorrhage. Orbits: Symmetric and unremarkable. Sella [place]: No expansile mass, grossly unremarkable unenhanced appearance of the pituitary. IAC: Allowing for noncontrast technique, no evidence for significant asymmetry or expansile mass. Vasculature: The major arterial skull base flow voids are present. Sinuses: No acute sinus or mastoid disease. Bones: No focal pathologic-appearing marrow signal changes in the skull or clivus. IMPRESSION: 1. No MRI evidence for acute intracranial abnormality such as hemorrhage or stroke. 2. Mild multifocal nonspecific cerebral white matter disease, the usual gamut of white matter conditions may be considered including changes secondary to chronic microangiopathy. Pelvic MRI w/contrast 07/11/17: FINDINGS: Bones: There are multiple sclerotic lesions within the visualized bones of the pelvis consistent with metastatic disease. Index lesions are as follows: 1. Within the left ilium extending into the ischium and pubic bones, overall length of 1.5 cm. 2. Within the left pubic bone, measuring 4.3 cm in length. Overall these lesions are unchanged. Some reactive marrow edema is in the left femoral head. It is unclear whether this is reactive or a metastatic bony lesion. It is unchanged. No fractures. Lower Lumbar Spine: Unremarkable. Sacroiliac Joints: No effusion or sacroiliitis. Right Hip: No acetabular retroversion. Femoral head/neck offset is within normal limits. No effusion. Left Hip: No acetabular retroversion. Femoral head/neck offset is within normal limits. No effusion. Symphysis Pubis: Mild osteoarthritis is at the symphysis pubis. Musculature: Some mild muscle edema is demonstrated in the iliacus, right gluteus ashley, and medial adductor muscles bilaterally. 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 It is stable compared to the prior exam. The other visualized pelvic organs are unremarkable. Other: The visualized sciatic nerves are unremarkable. No bursitis. The subcutaneous tissues are unremarkable. No abscess or cellulitis. IMPRESSION: 1. Multiple sclerotic metastatic foci within the pelvis as before. 2. 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 3. Pelvic kidney. Assessment/Plan - Problem List (1) Back pain Impression: Plan: Pelvis MRI w/contrast completed. Patient has chronic back pain, likely from metastatic disease. Plan: Gabapentin PO 100mg TID was prescribed. PT consulting. Qualifiers: Back pain location: low back pain Chronicity: acute Back pain laterality : right Sciatica presence: unspecified whether sciatica present Qualified Code(s): M54.5 - Low back pain (2) Uncontrolled pain Impression: Patient has pain that starts in her back, and goes into her right leg which makes ambulation difficult. This has been getting progressively worse. Plan: Titrate gabapentin for long-term use, use toradol and NORCO for break through pain. (3) Chronic radicular pain of lower extremity Impression: Patient has pain that starts in her back, and goes into her right leg which makes ambulation difficult. This has been getting progressively worse. Plan: Titrate gabapentin for long-term use, use toradol and NORCO for break through pain. (4) Hypokalemia Impression: Potassium on 07/11/17 was decreased to 3.3. Presume from poor PO intake, as patient denies diarrhea. Plan: Monitor labs and replace as needed. (5) Right foot drop Impression: Upon exam, this is not a new problem as the skin pattern suggests atrophy from lack of use. Plan: Intensive PT and encourage ambulation. Patient may benefit from a brace. (6) Metastatic breast cancer Impression: Contact was made with our Oncology [facility] clinic, as she is well known to them. Plan: Continue clinical updates. A total of 45 minutes was spent [id number] including patient exam and counseling as to pain control approach and cancer treatment status.
[2017-07-11] MEDS: ATORVASTATIN 40 MG TABLET PO SCH (21:04)
[2017-07-12] MEDS: HYDROcod/ACETAM 5/325 MG TABLET PO PRN (01:02)
[2017-07-12] MEDS: SODIUM CHLORIDE FLUSH 0.9% 10 ML SYRINGE IVP PRN (05:18)
[2017-07-12] MEDS: SODIUM CHLORIDE FLUSH 0.9% 10 ML SYRINGE IVP SCH ×3 (05:18→20:19)
[2017-07-12] MEDS: GABAPENTIN 300 MG CAPSULE PO SCH ×3 (05:25→20:18)
[2017-07-12] MEDS: MAGNESIUM OXIDE 400 MG TABLET PO SCH ×3 (05:25→20:18)
[2017-07-12] MEDS: CALCIUM CARBONATE CHEW 500 MG TABLET PO SCH ×3 (05:26→20:18)
[2017-07-12] MEDS ORDERED: KETOROLAC 15 MG/ML VIAL IVP SCH (06:00)
[2017-07-12] MEDS ORDERED: POTASSIUM CHLORIDE 10 MEQ CAPSULE PO ONE (06:57)
--- NOTE | 2017-07-12 07:04 | PROVIDER PROGRESS NOTE ---
Subjective - Prog Note Date Prog Note Date: 07/12/17 Prog Note Time: 07:03 - Subjective Pt reports feeling: Improved Subjective: Tayla is much improved in regards to her pain management and is motivated to do well with physical therapy. A long discussion about a short term rehab, concluded an agreement to complete a prior auth for possible placement tomorrow. She denies SOB, chest pain, N/V or a new cough. Current Medications - Current Medications Current Medications: Active Medications Acetaminophen (Tylenol) 1,000 mg PO Q6HR PRN PRN Reason: PAIN Last Admin: 07/11/17 18:02 Dose: 1,000 mg Acetaminophen/Hydrocodone Bitart ([place] 5/325) 1 tab PO Q4HR PRN PRN Reason: PAIN Last Admin: 07/12/17 01:02 Dose: 1 tab Aspirin (Ecotrin) 81 mg PO DAILY [facility] Last Admin: 07/11/17 09:16 Dose: 81 mg Calcium Carbonate/Glycine (Tums) 500 mg PO TID [facility] Last Admin: 07/12/17 05:26 Dose: 500 mg Gabapentin (Neurontin) 300 mg PO TID [facility] Last Admin: 07/12/17 05:25 Dose: 300 mg Ketorolac Tromethamine (Toradol Inj) 15 mg IVP ONCE [facility] Stop: 07/12/17 10:00 Last Admin: 07/12/17 05:18 Dose: 15 mg Magnesium Oxide (Mag Ox) 400 mg PO TID [facility] Last Admin: 07/12/17 05:25 Dose: 400 mg Melatonin 3 Mg 1 each PO QPM [facility] Last Admin: 07/11/17 22:41 Dose: Not Given Polyethylene Glycol (Miralax) 17 gm PO DAILY [facility] Last Admin: 07/11/17 09:08 Dose: Not Given Potassium Chloride (Micro-K) 10 meq PO BID ONE Stop: 07/12/17 06:58 Sodium Chloride (Normal Saline Flush 0.9%) 10 ml IVP PRN PRN PRN Reason: NEEDED PER PROVIDER ORDERS Last Admin: 07/12/17 05:18 Dose: 10 ml Sodium Chloride (Normal Saline Flush 0.9%) 10 ml IVP Q8HR [facility] Last Admin: 07/12/17 05:18 Dose: 10 ml Acetaminophen [Tylenol Extra Strength] 1,000 mg PO Q6HR PRN 02/27/17 Melatonin 6 mg PO QPM 03/16/17 Objective - Vital Signs/Intake & Output Reviewed Vital Signs: Yes Vital Signs: Vital Signs x48h Temp Pulse Resp BP Pulse Ox 07/12/17 05:00 37.2 C 93 16 142/67 H 100 07/12/17 00:31 36.9 C 90 16 120/65 99 Intake & Output: Intake & Output 07/09/17 07/10/17 07/11/17 07/12/17 23:59 23:59 23:59 23:59 Intake Total 900 500 Output Total 420 1100 1600 Balance -420 -200 -1100 - Objective General Appearance: positive: No acute distress, Alert Eyes Bilateral: positive: Normal inspection ENT: positive: ENT inspection nml, Pharynx nml, No signs of dehydration Neck: positive: Nml inspection, Thyroid nml, No JVD, Trachea midline Respiratory: positive: Chest non-tender, No respiratory distress, Breath sounds nml Cardiovascular: positive: Regular rate & rhythm, No gallop Peripheral Pulses: 1+ Dorsalis pedis (R), 1+ Dorsalis pedis (L), 2+ Radial (R), 2+ Radial (L) Abdomen: positive: Non-tender, No organomegaly, Nml bowel sounds, No distention Back: positive: Nml inspection Skin: positive: Color nml, No rash, Warm, Dry Extremities: positive: Non-tender, Pedal edema, Joint swelling, Other (right, chronic foot drop) Neurologic/Psychiatric: positive: Oriented x3, CN's nml (2-12), Weakness, Sensory loss, Depressed mood/affect Reflexes: Bicep (R): 2+, Bicep (L): 2+ - Lab Results Fish Bones: 07/11/17 05:15 07/11/17 05:36 - Diagnostic Imaging Diagnostic Imaging Results: positive: Final report reviewed Assessment/Plan - Problem List (1) Back pain Impression: Low, acute, right greater than left back pain. Pelvis MRI w/contrast completed. Patient has chronic back pain, likely from metastatic disease. Plan: Gabapentin PO 100mg TID was prescribed, and increased to a therapeutic dose of 300mg PO TID for anticipation of SNF soon. PT consulting. Qualifiers: Back pain location: low back pain Chronicity: acute Back pain laterality : right Sciatica presence: unspecified whether sciatica present Qualified Code(s): M54.5 - Low back pain (2) Uncontrolled pain Impression: Patient has pain that starts in her back, and goes into her right leg which makes ambulation difficult. This has been getting progressively worse. Plan: Titrate gabapentin for long-term use, use toradol for break through pain. (3) Chronic radicular pain of lower extremity Impression: Patient has pain that starts in her back, and goes into her right leg which makes ambulation difficult. This has been getting progressively worse. Plan: Titrate gabapentin for long-term use, use toradol and NORCO for break through pain. (4) Hypokalemia Impression: Potassium on 07/11/17 was decreased to 3.3. Presume from poor PO intake, as patient denies diarrhea. Plan: Monitor labs and replace as needed. (5) Right foot drop Impression: Upon exam, this is not a new problem as the skin pattern suggests atrophy from lack of use. Plan: Intensive PT and encourage ambulation. Patient may benefit from a brace. (6) Metastatic breast cancer Impression: Contact was made with our Oncology [facility] clinic, as she is well known to them. Case reviewed with Maria Elena Drew, Palliative care, and determined not appropriate. Plan: Continue clinical updates. A total of 30 minutes was spent [id number] including patient exam and counseling as to pain control approach and cancer treatment status.
[2017-07-12] MEDS ORDERED: CALCIUM CARBONATE CHEW 500 MG TABLET PO SCH (08:41)
[2017-07-12] MEDS: ASPIRIN EC 81 MG TABLET PO SCH (09:06)
[2017-07-12] MEDS: POLYETHYLENE GLYCOL 3350 17 GM PACKET PO SCH (09:07)
[2017-07-12] MEDS: PSYLLIUM PACKET PO SCH (13:22)
[2017-07-12] MEDS: ACETAMINOPHEN 500 MG TABLET PO PRN ×2 (14:22→20:18)
[2017-07-13] MEDS ORDERED: traMADol 50 MG TABLET PO PRN (00:23)
[2017-07-13] MEDS: ACETAMINOPHEN 500 MG TABLET PO PRN ×3 (02:28→15:39)
[2017-07-13] MEDS: MAGNESIUM OXIDE 400 MG TABLET PO SCH ×2 (05:30→13:38)
[2017-07-13] MEDS: CALCIUM CARBONATE CHEW 500 MG TABLET PO SCH ×2 (05:30→13:38)
[2017-07-13] MEDS: SODIUM CHLORIDE FLUSH 0.9% 10 ML SYRINGE IVP SCH (05:30)
[2017-07-13] MEDS: GABAPENTIN 300 MG CAPSULE PO SCH ×2 (05:30→13:38)
[2017-07-13] MEDS: ASPIRIN EC 81 MG TABLET PO SCH (07:57)
[2017-07-13] MEDS: PSYLLIUM PACKET PO SCH (07:57)
[2017-07-13] MEDS: POLYETHYLENE GLYCOL 3350 17 GM PACKET PO SCH (07:57)
[2017-07-13] MEDS ORDERED: DULoxetine 20 MG CAPSULE PO SCH (09:00)
--- NOTE | 2017-07-13 15:25 | Discharge Plan ---
"Discharge Plan for SNF / [facility] - DC Plan and Transition Orders Disposition: 03 SNF DC/Xfer Condition: Stable SNF Transition Orders: Admit to: CareAge under the care of Arnel Head Discharge Diagnosis: Dorsalgia, uncontrolled pain, metastatic breast CA, right foot drop. Medicare Certification: I certify that [facility] long term care is medically necessary on a continuing basis for any of the conditions for which she/he is receiving care during hospitalization. Notify PCP of admission and forward orders to primary provider for signature. Weight on admission and monthly. Call PCP immediately if weight increases by 10 pounds or if patient develops dyspnea, chest pain/tightness or edema. House Bowel Program: yes If no BM after 2 days, nurse may give M.O.M. 30ml PO PRN and /or ducolax Supp 1 ID and /or KATHERINE 250mg P.O., and/or senna 1-2 tabs PO. On day 3 nurse may give repeat above order until residents constipation is resolved. Immunizations: Annual Influenza Vaccine: yes. (between Apr 06 and November 03.) Unless allergy or already given Two-Step PPD: yes per [facility] [phone] or appropriate documentation of approved exceptions Treatments & Other Orders: PT/OT/speech. Pain control. Rehabilitation with the intention of returning home. Ongoing appointments with Oncology, MAC clinic. Oxygen Orders: 1/2L nasal cannula oxygen to keep saturation greater than 90%. Lab Tests or X-Rays Orders: Not indicated. Orthopedic Orders: N/A. Medications:PLEASE REFER TO THE DISCHARGE MEDICATION LIST. Insulin Orders? no Diagnosis: Diabetes Initiate hypo and hyperglycemia protocols for BG <70 and BG >375. May check BG prn for signs/symptoms of dysglycemia. Frequency of BG checks: Correction Insulin: - Select the type of insulin below Choose: Novolog/[id number] units /ml insulin inject subq per orders indicate below LOW DOSE MODERATE DOSE MODERATE/HIGH DOSE HIGH DOSE GB UNITS GB UNITS GB UNITS GB UNITS 61-140 0 UNITS 61-140 0 UNITS 61-140 0 UNITS 61-140 0 UNITS 141-175 1 UNITS 141-175 1 UNITS 141-175 2 UNITS 141-175 3 UNITS 176-225 2 UNITS 176-225 3 UNITS 176-225 4 UNITS 176-225 5 UNITS 226-275 3 UNITS 226-275 5 UNITS 226-275 6 UNITS 226-275 7 UNITS 276-325 4 UNITS 276-325 7 UNITS 276-325 8 UNITS 276-325 9 UNITS 326-375 5 UNITS 326-375 9 UNITS 326-375 10 UNITS 326-375 11 UNITS >375 CONTACT MD >375 CONTACT MD >375 CONTACT MD >375 CONTACT MD Custom Dosing: Choose: None/Novolog/Humalog 100 units/ml Insulin inject subq as follows: GB Units 61-140 Units 141-175 Units 176-225 Units 226-275 Units 276-325 Units 326-375 Units >375 Contact MD Allergies and Adverse Reactions: Allergies Allergy/AdvReac Type Severity Reaction Status Date / Time cortisone Allergy Unknown Verified 07/01/17 11:02 dexamethasone Allergy Unknown Verified 07/01/17 11:02 epinephrine Allergy Unknown Verified 07/01/17 11:02 erythromycin base Allergy Unknown Verified 07/01/17 11:02 [Erythromycin Base] hydrocortisone Allergy Unknown Verified 07/01/17 11:02 [From Cortizone-10] lorazepam [From Ativan] Allergy Hallucinati Verified 07/01/17 11:02 ons prednisone Allergy Unknown Verified 07/01/17 11:02 Sulfa (Sulfonamide Allergy Unknown Verified 07/01/17 11:02 Antibiotics) trazodone Allergy Edema Verified 07/01/17 11:02 NSAIDS (Non-Steroidal AdvReac Unknown Verified 07/01/17 11:02 Anti-Inflamma - Medications New Prescriptions: DULoxetine [Cymbalta] 20 mg PO DAILY #30 capsule Gabapentin [Neurontin] 300 mg PO TID #30 capsule Lidocaine Patch 5% [Lidoderm Patch] 1 each PATCH DAILY #30 patch Psyllium [Metamucil] 1 packet PO DAILY #30 packet - Diet Texture: Regular Liquids: Thin May have monthly special meal: Yes - Therapies | Activity Therapy: Evaluation | Treat if indicated: Speech, PT, OT, Swallowing / ST Rehabilitation Potential: Maximize functional status, Return to independent living Activity: Activity as Tolerated Weight Bearing: Full Weight Assistance Devices: Walker"
--- NOTE | 2017-07-13 16:07 | DISCHARGE SUMMARY ---
Discharge Summary Admit Date: 07/10/17 Discharge Date: 07/13/17 Discharging Provider: CARISA Hobbs Primary Care Provider: Arnel Head Code Status: Attempt Resuscitation Condition at Discharge: Good Discharge Disposition: 03 SNF DC/Xfer Discharge [facility] - DIAGNOSES Admission Diagnoses: Transient cerebral ischemic attack, unspecified (G45.9) Cerebral infarction, unspecified (I63.9) Hypokalemia (E87.6) Radiculopathy, site unspecified (M54.10) Malignant neoplasm of unspecified site of unspecified female breast (C50.919) Discharge Diagnoses with Status of Each Condition: Back pain (M54.9) chronic,controlled with medications. Uncontrolled pain (R52) -resolved. Chronic radicular pain of lower extremity (M54.10) chronic, controlled. Hypokalemia (E87.6) resolved. Right foot drop (M21.371) chronic, ongoing therapy. Breast cancer metastasized to bone (C50.919) ongoing with treatment. - HPI History of Present Illness: Tayla Jack is a 62-year old white female who is now chronically debilitated with hx of breast cancer with bony mets. Status post chemotherapy and radiation. Patient states that she was on dexamethasone and finished taking drug in February this year, denies recent falls but mentions chronic back pain for which she denies narcotic pain treatments other than tylenol her chronic back pain. She has a hx of anxiety, and is visible having difficulty finding words for to explain her medical conditions; her memory is conserved but denies fevers , chills, nausea, emesis, GI/ symptoms. Patient states a chronic leg pain with debility for which she has a caregiver who sees her 7x/week. She came in with no headaches, or visual disturbances, CT head as well as CTA of head and neck were unremarkable, labs revealed a hypokalemia and low mag, trop was neg, slightly tachycardic on exam. No tele neuro was done in ED. Patient VSS were HD stable, and showed a stroke scale of 4. Patient did meet TPA guidelines but refused tx on 3 occasions in ED. Patient very adament on not receiving pharmacological agents for treatment to her TIA/CVA but has agreed to ASA, K and mag supplementation and possibly statin agent for hyperliplidemia if present. - HOSPITAL COURSE Hospital Course: Patient with chronic pain with what appears to be a "radiculopathy" related to her blastic metastatic disease. Patient had a CT of pelvis in June of 2017 which showed blastic metastatic disease. A trial of norco and neurontin combined with PT/OT did not resolve symptoms, but the patient made vast improvement so that she was eligible for short term rehab. This was a great improvement since presentation to the ED when she was resistant to "medications " to the point of refusing TPA for a suspected TIA. This was ruled out after a head MRI. Patient was agreeable to medical management and was transported to [facility] rehab in stable condition. - ALLERGIES Allergies/Adverse Reactions: Allergies Allergy/AdvReac Type Severity Reaction Status Date / Time cortisone Allergy Unknown Verified 07/01/17 11:02 dexamethasone Allergy Unknown Verified 07/01/17 11:02 epinephrine Allergy Unknown Verified 07/01/17 11:02 erythromycin base Allergy Unknown Verified 07/01/17 11:02 [Erythromycin Base] hydrocortisone Allergy Unknown Verified 07/01/17 11:02 [From Cortizone-10] lorazepam [From Ativan] Allergy Hallucinati Verified 07/01/17 11:02 ons prednisone Allergy Unknown Verified 07/01/17 11:02 Sulfa (Sulfonamide Allergy Unknown Verified 07/01/17 11:02 Antibiotics) trazodone Allergy Edema Verified 07/01/17 11:02 NSAIDS (Non-Steroidal AdvReac Unknown Verified 07/01/17 11:02 Anti-Inflamma - MEDICATIONS Home Medications: Ambulatory Orders Medication Instructions Recorded Confirmed Acetaminophen [Tylenol Extra 1,000 mg PO Q6HR PRN 02/27/17 07/11/17 Strength] Calcium Carbonate [Tums (Calcium 500 mg PO TID #30 tablet 07/13/17 Carbonate 500mg)] DULoxetine [Cymbalta] 20 mg PO DAILY #30 capsule 07/13/17 Gabapentin [Neurontin] 300 mg PO TID #30 capsule 07/13/17 Lidocaine Patch 5% [Lidoderm Patch] 1 each PATCH DAILY #30 patch 07/13/17 Melatonin 6 mg PO QPM #30 07/13/17 07/11/17 Psyllium [Metamucil] 1 packet PO DAILY #30 packet 07/13/17 Gabapentin 100 mg PO TID #30 capsule 07/14/17 - PHYSICAL EXAM AT DISCHARGE General Appearance: positive: No acute distress, Alert Eyes Bilateral: positive: Normal inspection ENT: positive: ENT inspection nml, Pharynx nml, No signs of dehydration Neck: positive: Nml inspection, Thyroid nml, No JVD, Trachea midline Respiratory: positive: Chest non-tender, No respiratory distress, Breath sounds nml Cardiovascular: positive: Regular rate & rhythm, No gallop Peripheral Pulses: positive: 2+ Abdomen: positive: Non-tender, No organomegaly, Nml bowel sounds, No distention Rectal: positive: Non-tender Back: positive: Nml inspection Skin: positive: Color nml, No rash, Warm, Dry Extremities: positive: Non-tender, Pedal edema, Calf tenderness, Other (right foot drop-chronic) Neurologic/Psychiatric: positive: Oriented x3, CN's nml (2-12), Motor nml, Sensation nml, Depressed mood/affect Reflexes: Bicep (R): 3+, Bicep (L): 3+ - LABS Result Diagrams: 07/11/17 05:15 07/11/17 05:36 - DIAGNOSTIC IMAGING Diagnostic Imaging Results: Final report reviewed Diagnostic Imaging Results Comments: Brain MRI 07/11/17: FINDINGS: Brain Volume: Normal for age. Parenchyma/Dura: No restricted diffusion to suggest acute or recent ischemic infarct of the brain. No cerebral hemorrhage. No mass effect, midline shift or abnormal subdural fluid collection. No midline developmental cerebral anomaly. There are multiple scattered foci of abnormal patchy, nodular and confluent T2 hyperintensity involving the deep and periventricular regions of both cerebral hemispheres. No focal posterior fossa plaque-like T2 hyperintensity. Ventricles/Cisterns: No hydrocephalus. No abnormal extra-axial fluid collection or hemorrhage. Orbits: Symmetric and unremarkable. Sella Turcica: No expansile mass, grossly unremarkable unenhanced appearance of the pituitary. IAC: Allowing for noncontrast technique, no evidence for significant asymmetry or expansile mass. Vasculature: The major arterial skull base flow voids are present. Sinuses: No acute sinus or mastoid disease. Bones: No focal pathologic-appearing marrow signal changes in the skull or clivus. IMPRESSION: 1. No MRI evidence for acute intracranial abnormality such as hemorrhage or stroke. 2. Mild multifocal nonspecific cerebral white matter disease, the usual gamut of white matter conditions may be considered including changes secondary to chronic microangiopathy. Pelvic MRI w/contrast 07/11/17: FINDINGS: Bones: There are multiple sclerotic lesions within the visualized bones of the pelvis consistent with metastatic disease. Index lesions are as follows: 1. Within the left ilium extending into the ischium and pubic bones, overall length of 1.5 cm. 2. Within the left pubic bone, measuring 4.3 cm in length. Overall these lesions are unchanged. Some reactive marrow edema is in the left femoral head. It is unclear whether this is reactive or a metastatic bony lesion. It is unchanged. No fractures. Lower Lumbar Spine: Unremarkable. Sacroiliac Joints: No effusion or sacroiliitis. Right Hip: No acetabular retroversion. Femoral head/neck offset is within normal limits. No effusion. Left Hip: No acetabular retroversion. Femoral head/neck offset is within normal limits. No effusion. Symphysis Pubis: Mild osteoarthritis is at the symphysis pubis. Musculature: Some mild muscle edema is demonstrated in the iliacus, right gluteus ashley, and medial adductor muscles bilaterally. 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 It is stable compared to the prior exam. The other visualized pelvic organs are unremarkable. Other: The visualized sciatic nerves are unremarkable. No bursitis. The subcutaneous tissues are unremarkable. No abscess or cellulitis. IMPRESSION: 1. Multiple sclerotic metastatic foci within the pelvis as before. 2. 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 3. Pelvic kidney. - FOLLOW UP Follow Up: Therapy to continue at [facility]. - TIME SPENT Time Spent in Discharge (Minutes): 60
[2017-07-13 16:33] VITALS: BP 146/83
== END 2017-07-13 17:28 | DRG 948 ==
LOC: EDUNIT# → ED 16:36 → OBS 21:04 → OBSVTOIN 07-11 15:45 → MS2 07-11 16:29
PROVIDERS: ADMIT Family Medicine; ATTEND Nurse Practitioner
DX: G89.3 Neoplasm related pain (acute) (chronic) (principal); C79.51 Secondary malignant neoplasm of bone; R47.01 Aphasia; G81.90 Hemiplegia, unspecified affecting unspecified side; M54.5 Low back pain; R47.1 Dysarthria and anarthria; R29.810 Facial weakness; E87.6 Hypokalemia; E83.42 Hypomagnesemia; M54.10 Radiculopathy, site unspecified; M21.371 Foot drop, right foot; C50.919 Malignant neoplasm of unspecified site of unspecified female breast; F41.9 Anxiety disorder, unspecified; K21.9 Gastro-esophageal reflux disease without esophagitis; F10.11 Alcohol abuse, in remission; E66.9 Obesity, unspecified; Z68.32 Body mass index [BMI] 32.0-32.9, adult; Z91.81 History of falling; Z90.10 Acquired absence of unspecified breast and nipple; Z92.3 Personal history of irradiation; Z92.21 Personal history of antineoplastic chemotherapy
CPT/HCPCS: 36415; 70450; 70496; 70498; 70551; 72197; 80053; 83036; 83690; 83735; 84484; 84550; 85025; 85379; 85610; 85651; 85730; 93005; 93970; 96360; 96375; 96376; 99284; 99285

== ENCOUNTER 2017-07-14 02:14 | Outpatient (CLI) | payer MEDICAID | END 2017-07-14 02:15 | disposition EMS.NT | LOC: EMS 02:14 | PROVIDERS: ATTEND Surgery | DX: R68.89 Other general symptoms and signs (principal) ==

== ENCOUNTER 2017-07-14 09:07 | Outpatient (CLI) | payer MEDICAID | END 2017-07-14 09:08 | disposition critical access hospital (66) | LOC: EMS 09:07 | PROVIDERS: ATTEND Surgery | DX: R11.0 Nausea (principal) | CPT/HCPCS: A0425; A0429 ==

== ENCOUNTER 2017-07-14 09:13 | Emergency (ER) | payer MEDICAID ==
--- NOTE | 2017-07-14 09:42 | ED Physician Documentation ---
History of Present Illness - Stated complaint Stated Complaint: MED REACTION - Chief complaint Chief Complaint: General - History obtained from History obtained from: Patient - History of Present Illness Timing: Yesterday - Additonal information Additional information: 62-year-old female was recently been started on some gabapentin has feelings of dizziness lightheadedness and nausea which she believes are associated with taking the gabapentin. She is recently been admitted to the in the hospital for TIA and she was discharged to [facility]. She left [facility] and went home last night as she felt this was not the right place for her. Today she is feeling that she does need to help but was available encouraging is been told she will need to come back to the hospital to see Dr. Camejo to complete this to go back to [facility] Review of Systems Constitutional: denies: Fever, Chills, Myalgias Eyes: denies: Decreased vision Ears: denies: Ear pain Nose: denies: Rhinorrhea / runny nose, Congestion Throat: denies: Sore throat Cardiac: denies: Chest pain / pressure, Palpitations Respiratory: denies: Dyspnea, Cough GI: reports: Nausea. denies: Abdominal Pain, Vomiting : denies: Dysuria, Frequency Skin: denies: Rash Musculoskeletal: reports: Back pain, Extremity pain. denies: Neck pain Neurologic: reports: Generalized weakness, Other (dizziness). 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: Breast cancer : None HEENT: None Psych: Anxiety Musculoskeletal: None Derm: None - Past Surgical History Past Surgical History: Yes General: Appendectomy /HOT BRAIDER: Mastectomy - Present Medications Home Medications: Ambulatory Orders Medication Instructions Recorded Confirmed Acetaminophen [Tylenol Extra 1,000 mg PO Q6HR PRN 02/27/17 07/11/17 Strength] Calcium Carbonate [Tums (Calcium 500 mg PO TID #30 tablet 07/13/17 Carbonate 500mg)] DULoxetine [Cymbalta] 20 mg PO DAILY #30 capsule 07/13/17 Gabapentin [Neurontin] 300 mg PO TID #30 capsule 07/13/17 Lidocaine Patch 5% [Lidoderm Patch] 1 each PATCH DAILY #30 patch 12/08/17 Melatonin 6 mg PO QPM #30 12/08/17 12/06/17 Psyllium [Metamucil] 1 packet PO DAILY #30 packet 07/13/17 Gabapentin 100 mg PO TID #30 capsule 07/14/17 - Allergies Allergies/Adverse Reactions: Allergies Allergy/AdvReac Type Severity Reaction Status Date / Time cortisone Allergy Unknown Verified 07/01/17 11:02 dexamethasone Allergy Unknown Verified 07/01/17 11:02 epinephrine Allergy Unknown Verified 07/01/17 11:02 erythromycin base Allergy Unknown Verified 07/01/17 11:02 [Erythromycin Base] hydrocortisone Allergy Unknown Verified 07/01/17 11:02 [From Cortizone-10] lorazepam [From Ativan] Allergy Hallucinati Verified 07/01/17 11:02 ons prednisone Allergy Unknown Verified 07/01/17 11:02 Sulfa (Sulfonamide Allergy Unknown Verified 07/01/17 11:02 Antibiotics) trazodone Allergy Edema Verified 07/01/17 11:02 NSAIDS (Non-Steroidal AdvReac Unknown Verified 07/01/17 11:02 Anti-Inflamma - Social History Does the pt smoke?: No Smoking Status: Never smoker Does the pt drink ETOH?: No Does the pt have substance abuse?: No - Immunizations Immunizations are current?: Yes - POLST Patient has POLST: No POLST Status: Full Code PD ED PE NORMAL - Vitals Vital signs reviewed: Yes (hypertensive ) - General General: Alert and oriented X 3, No acute distress, Well developed/nourished - HEENT HEENT: Atraumatic, PERRL, EOMI, Other (dry mucous membranes) - Neck Neck: Supple, no meningeal sign, No bony TTP - Cardiac Cardiac: RRR, No murmur - Respiratory Respiratory: No respiratory distress, Clear bilaterally - Abdomen Abdomen: Soft, Non tender - Back Back: No CVA TTP, No spinal TTP - Derm Derm: Normal color, Warm and dry, No rash - Extremities Extremities: No deformity, No edema - Neuro Neuro: No motor deficit, No sensory deficit Eye Opening: Spontaneous Motor: Obeys Commands Verbal: Oriented GCS Score: 15 - Psych Psych: Normal mood, Normal affect Results - Vitals Vitals: Vital Signs - 24 hr 07/14/17 09:17 Temperature 36.3 C L Heart Rate 82 Respiratory 20 Rate Blood Pressure 157/91 H O2 Saturation 99 Oxygen O2 Source Room air - Labs Labs: Laboratory Tests 07/14/17 07/14/17 07/14/17 09:56 09:56 09:56 WBC 5.4 RBC 4.21 Hgb 13.3 Hct 38.2 MCV 90.8 MCH 31.6 H MCHC 34.8 RDW 13.1 Plt Count 173 MPV 6.5 L Neut # 4.2 Lymph # 0.5 L [place] # 0.5 Eos # 0.1 Baso # 0.0 Absolute Nucleated RBC 0.00 Nucleated RBC % 0.1 Sodium 136 Potassium 3.7 Chloride 101 Carbon Dioxide 24 Anion Gap 11.0 BUN 10 Creatinine 0.5 Estimated GFR (MDRD) 124 Glucose 155 H Calcium 9.0 Total Bilirubin 0.4 AST 24 ALT 24 Alkaline Phosphatase 36 L Troponin I < 0.04 Total Protein 6.7 Albumin 3.5 Globulin 3.2 Albumin/Globulin Ratio 1.1 Lipase 16 L Urine Color Urine Clarity Urine pH Ur Specific [place] Urine Protein Urine Glucose (UA) Urine Ketones Urine Occult Blood Urine Nitrite Urine Bilirubin Urine Urobilinogen Ur Leukocyte Esterase Ur Microscopic Review Urine Culture Comments 07/14/17 10:17 WBC RBC Hgb Hct MCV MCH MCHC RDW Plt Count MPV Neut # Lymph # [place] # Eos # Baso # Absolute Nucleated RBC Nucleated RBC % Sodium Potassium Chloride Carbon Dioxide Anion Gap BUN Creatinine Estimated GFR (MDRD) Glucose Calcium Total Bilirubin AST ALT Alkaline Phosphatase Troponin I Total Protein Albumin Globulin Albumin/Globulin Ratio Lipase Urine Color YELLOW Urine Clarity CLEAR Urine pH 7.0 Ur Specific [place] 1.010 Urine Protein NEGATIVE Urine Glucose (UA) NEGATIVE Urine Ketones NEGATIVE Urine Occult Blood NEGATIVE Urine Nitrite NEGATIVE Urine Bilirubin NEGATIVE Urine Urobilinogen 0.2 (NORMAL) Ur Leukocyte Esterase NEGATIVE Ur Microscopic Review NOT INDICATED Urine Culture Comments NOT INDICATED Procedures - IVC sono (time) 0940 Bedside IVC sono: IVC measures (cm) (1.6), Euvolemia PD MEDICAL DECISION MAKING - ED course Complexity details: reviewed results, re-evaluated patient, considered differential, d/w patient ED course: 62-year-old female with metastatic breast cancer to bone and chronic radicular pain in the lower extremities is now a resident at [facility] and she wishes to return to [facility] today. Departure - Departure Disposition: 01 Home, Self Care Clinical Impression: Chronic radicular pain of lower extremity Condition: Stable Instructions: ED Chronic Pain Management Follow-Up: Arnel Head MD [Primary Care Provider] - Prescriptions: Gabapentin 100 mg PO TID #30 capsule
[2017-07-14 10:03] LABS: BASOPHILS % (AUTO) 0.4 %; EOSINOPHILS # (AUTO) 0.1 10^3/uL (0.0-0.7); EOSINOPHILS % (AUTO) 2.2 %; HCT - HEMATOCRIT 38.2 % (37.0-47.0); HGB - HEMOGLOBIN 13.3 g/dL (12.0-16.0); LYMPHOCYTES # (AUTO) 0.5 10^3/uL (1.5-3.5); MEAN CORPUSCULAR HEMOGLOBIN 31.6 pg (27.0-31.0); MEAN CORPUSCULAR HGB CONC 34.8 g/dL (32.0-36.0); MEAN CORPUSCULAR VOLUME 90.8 fL (81.0-99.0); MEAN PLATELET VOLUME 6.5 fL (7.9-10.8); MONOCYTES # (AUTO) 0.5 10^3/uL (0.0-1.0); NEUTROPHILS # (AUTO) 4.2 10^3/uL (1.5-6.6); NEUTROPHILS % (AUTO) 78.4 %; NUCLEATED RED BLOOD CELLS AUTO 0.1 /100WBC; RED BLOOD COUNT 4.21 10^6/uL (4.20-5.40); RED CELL DISTRIBUTION WIDTH 13.1 % (12.0-15.0); UNCORRECTED WHITE BLOOD COUNT 5.4 x10^3/uL; WHITE BLOOD COUNT 5.4 x10^3/uL (4.8-10.8)
[2017-07-14 10:15] LABS: ALBUMIN/GLOBULIN RATIO 1.1 (1.0-2.2); BILIRUBIN,TOTAL 0.4 mg/dL (0.2-1.0); CREATININE 0.5 mg/dL (0.4-1.0); POTASSIUM 3.7 mmol/L (3.5-5.0); TOTAL PROTEIN 6.7 g/dL (6.7-8.2)
[2017-07-14 10:27] LABS: BILIRUBIN,URINE NEGATIVE (NEGATIVE)
[2017-07-14 10:29] LABS: UA CHARGE (STRIP ONLY) YES; UR CULTURE IF IND NOT INDICATED
[2017-07-14] MEDS ORDERED: ACETAMINOPHEN 500 MG TABLET PO STA (12:18)
[2017-07-14] MEDS ORDERED: ACETAMINOPHEN 500 MG TABLET PO ONE (12:48)
[2017-07-14] MEDS ORDERED: GABAPENTIN 100 MG CAPSULE PO STA ×2 (13:41→17:32)
[2017-07-14] MEDS ORDERED: GABAPENTIN 100 MG CAPSULE ONE ×2 (13:51→17:34)
[2017-07-14 17:38] VITALS: BP 147/86
== END 2017-07-14 16:58 | disposition home or self-care (01) ==
LOC: EDBD → EDUNIT# → ED 09:13
DX: M54.10 Radiculopathy, site unspecified (principal); Z85.3 Personal history of malignant neoplasm of breast; C79.51 Secondary malignant neoplasm of bone; Z86.73 Personal history of transient ischemic attack (TIA), and cerebral infarction without residual deficits; K21.9 Gastro-esophageal reflux disease without esophagitis
CPT/HCPCS: 36415; 80053; 81003; 83690; 84484; 85025; 99283; A9270; 81001; 87086

== ENCOUNTER 2017-09-05 16:00 | Outpatient (CLI) | payer MEDICAID ==
--- NOTE | 2017-09-05 19:37 | CONSULTATION NOTE ---
Palliative Care Follow Up - Referral Referring Provider: Dr Arnel Head Time of Visit: 09/05/2017 16:00 - 17:00 Referral setting: Home (Seen in home setting due to taxing and considerable effort required to leave the home due to lower extremity pain and weakness.) - Information Sources Records reviewed: Previous records reviewed History/Review of Systems obtained from: Patient, Caregiver Exam limitations: No limitations - History of Present Illness Update Brief HPI Update: This this is a 62-year-old woman with prior remote history of right-sided breast cancer treated with right mastectomy and right axillary lymph node dissection without any adjuvant therapy. This was performed by Katerina Pyle at [facility] in 2006. 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 She was treated with palliative radiation therapy to the pelvis and lumbar spine to manage the symptoms, and given dexamethasone for symptom relief of nausea. MRI of pelvis on 07/11/17 shows no change in metastases, and brain MRI of 07/11/17 is unremarkable. Bilateral venous ultrasound shows no DVT on 07/10/17. Right after her radiation therapy she was feeling better and felt she "had been cured," and then she started having pain in lower extremities. After steroid treatment with dexamethasone she reports her legs collapsed and she started having very significant pain in lower extremities. This also includes R foot drop. Her main concern continues to be her unrelenting pain in her lower extremities. She is starting to fear that the pain won't ever resolve. She has spoken with her oncologist who has advised it may take longer and that she thinks it will ameliorate. She has had several physical therapy sessions and the next one is to be her last one. She does not feel she has gotten out of physical therapy which she was hoping to get, although we discussed that she has had progress since my previous visit 02 August 2017. She just had her first consultation with the dry clipper tender yesterday who fitted her on an orthotic boot for her right foot drop. This dry clipper tender was recommended by the physical therapist. When I arrived at the patient's home she was distraught over the pain in her right leg and in tears and was being assisted by her caregiver Connie. We worked together and succeeded in calming the patient and she was able to eventually have the the boot fitted on to her right foot. Through the course of this visit, her foot eventually settled into the heel of the boot, and the patient did express some relief and optimism about this. The patient reports she has just started using CBD tincture four nights ago for relief of pain. So far she is pleased with the results because she has been having pain relief without adverse side effects, including feeling high (there is a small amount of THC in the tincture.) She was instructed to take a full syringe, but she uses about 50-60% of the 100mg syringe. She currently has a 30- day supply, but reckons at the rate she is using it, it should last 60 days. She reiterated strongly that she does not want to use any opioids, because she knows she has strong reactions to medications, and also due to her history of alcoholism. She especially does not want to try gabapentin. I educated her on benefits and burdens regarding the side effects occurring prior to the benefits. Her previous experience was taking it for one week, and the side effects, especially headache, were such that she is adamant about not attempting it again. She finds that she is now ambulatory with help, and is getting up from her bed. She is also able to independently transfer. She is upright in her wheelchair today; during my first visit she remained bedbound. She now has an adjustable bed which is helping with leg elevation. Social History - Living Situation Living arrangement: At home Living Situation: Alone, With caregiver(s) (She has daily wound care specialist help, and a new caregiver through [facility] is about to start.) Support System: Connie, her caregiver, is an important source of support. Also her mental health counselor, and she feels she has a network of other supporters, including Reverend Scherer from the [facility] who visits her at home. Medications/Allergies - Medications Home Medications: Ambulatory Orders Medication Instructions Recorded Confirmed Acetaminophen [Tylenol Extra 1,000 mg PO Q6HR PRN 02/27/17 07/24/17 Strength] Calcium Carbonate [Tums (Calcium 500 mg PO TID #30 tablet 07/13/17 07/24/17 Carbonate 500mg)] Lactose-Reduced Food [Ensure 118 ml PO TID 07/31/17 07/31/17 Compact] Cbd Tincture 1 ea PO DAILY PRN 09/06/17 - Allergies Allergies/Adverse Reactions: Allergies Allergy/AdvReac Type Severity Reaction Status Date / Time cortisone Allergy Unknown Verified 07/01/17 11:02 dexamethasone Allergy Unknown Verified 07/01/17 11:02 epinephrine Allergy Unknown Verified 07/01/17 11:02 erythromycin base Allergy Unknown Verified 07/01/17 11:02 [Erythromycin Base] hydrocortisone Allergy Unknown Verified 07/01/17 11:02 [From Cortizone-10] lorazepam [From Ativan] Allergy Hallucinati Verified 07/01/17 11:02 ons prednisone Allergy Unknown Verified 07/01/17 11:02 Sulfa (Sulfonamide Allergy Unknown Verified 07/01/17 11:02 Antibiotics) trazodone Allergy Edema Verified 07/01/17 11:02 NSAIDS (Non-Steroidal AdvReac Unknown Verified 07/01/17 11:02 Anti-Inflamma Review of Systems - Constitutional Constitutional: reports: Weakness, Weight loss (patient reports 100 lb weight loss since beginning of 2016) - Cardiovascular Cardiovascular: denies: Chest pain - Respiratory Respiratory: denies: Cough - Gastrointestinal Gastrointestinal: reports: Nausea (chronic x 1 year). denies: Constipation, Vomiting - Genitourinary Genitourinary: denies: Dysuria, Incontinence - Musculoskeletal Musculoskeletal: reports: Limited range of motion, Assistive devices ( wheelchair and walker), Transfer issues (improvement) - Integumentary Integumentary: reports: Nail changes (dry, brittle since radiation therapy) - Neurological Neurological: reports: Focal weakness (lower extremities), Other (R foot drop) - Psychiatric Psychiatric: reports: Anxiety Physical Exam - Vital Signs Temperature: 96.9 F Pulse Rate: 64 O2 Saturation: 95 Blood Pressure: 128/70 - Physical Exam General Appearance: positive: Alert, Moderate distress, Anxious Eyes Bilateral: positive: EOMI, No lid inflammation, Conjunctivae nml, No scleral icterus ENT: positive: No signs of dehydration Neck: positive: Thyroid nml, No JVD, Trachea midline Cardiovascular: positive: Regular rate & rhythm, No murmur Respiratory: positive: Chest non-tender, No respiratory distress, Breath sounds nml Abdomen: positive: Soft Skin: positive: No symptoms Extremities: positive: No pedal edema, Other (foot in plant flexion; started orthotic boot today) Neurologic/Psychiatric: positive: Oriented x3, Depressed mood/affect (anxious about pain) Palliative Care - POLST Patient has POLST: Yes POLST Status: DNR, Selective Treatment Pain: Location (bilateral lower extremities, worse in R foot w/flexion), Severity (severe), Comment (Refuses opioids, gabapentin, ibuprofen. Has used Tylenol. Recently started CBD oil with some relief.) Tiredness/Fatigue: Mild (1-3) Anxiety: Moderate (4-6) Anorexia: None, Weight loss (100 lbs since 2016) Constipation: No - Palliative Care Discussion: Patient's main concern continues to be ongoing issues with pain. She has recently received an orthotic device for her right leg, and during the course of this visit she successfully fitted it on her foot and had her heel slowly work its way into the proper position. She has had several physical therapy sessions, and has one remaining. She did not get the results from the physical therapy sessions that she was hoping for, feeling anxious as opposed to feeling she was making progress. She admits feeling fearful that the pain will never go away, or that it will take a very long time. She takes heart in having started CBD tincture having some positive results in relaxing her and easing the pain without causing intolerable side effects. She is also encouraged about her experience with the dry clipper tender, hoping that the foot brace will help resolve her right foot drop. We discussed the medications in the palliative care tool kit, and she does realize her decision not to accept standard pain medication means the palliative care toolbox is somewhat limited for her. Again she is very hopeful the cannabidiol (CBD) tincture will help manage her pain, and she appreciates the oversight and emotional support offered by palliative care. She has not seen the palliative care utility engineer and has decided not to pursue that , as she is being visited by Reverend Barron [facility], who comes and visits her at her home. She does find spiritual and emotional comfort with her, as well as with her monthly sessions with her long- term mental health counselor. Connie, her long-term caregiver, is also a strong source of support for her. The patient is about to engage another caregiver through [facility] although not through [facility]. The patient confirms she would like to continue with palliative care monitoring and oversight. Impression and Recommendations - Palliative Care Impression: This is a 62-year-old woman with a remote history of right breast cancer and right mastectomy with right axillary lymph node dissection. In 2017 the cancer had metastasized to her pelvis/lumbar spine and was treated with radiation and dexamethasone for side effects. The sequela of this treatment has been extreme lower extremity neuropathic pain which the patient is currently treating with some success with CBD tincture. Managing the pain is her priority, along with resolving the foot drop, and she has recently been fitted with an orthotic device. Recommendations/Counseling Done: Breast cancer mets to pelvis/spine: Stable. Oncolology appointment with Dr Bahena on 10/21/17. Pain in lower extremities: Severe. Improvement with CBD tincture, started 4 days previously. Patient is self-managing her dosage and starting with half of the dose recommended by the retailer. Refuses gabepentin or any type of opioid pain medications due to history of significant adverse reactions to medications. R foot drop: One more PT session is scheduled; she cancelled today's session due to pain and rescheduled for next week. She is being followed by an dry clipper tender for the foot drop and just started wearing the boot. Anxiety: History of PTSD. Declined Palliative Care utility engineer support, is being seen by long-term mental health counselor, florin guerrero from the [facility], and also follows AA precepts. Advanced care planning: PATTI is DREileen and selective treatment. Pain control is her main goal and concern. Follow up in 3-4 weeks for next visit. Time Spent: 60 minutes were spent with more than 50% of the time spent on counseling, education, and coordination of care.
== END 2017-09-05 16:01 | disposition home or self-care (01) ==
LOC: PC 16:00
PROVIDERS: ATTEND Nurse Practitioner
DX: Z51.5 Encounter for palliative care (principal); C50.911 Malignant neoplasm of unspecified site of right female breast; C79.51 Secondary malignant neoplasm of bone; Z90.11 Acquired absence of right breast and nipple; M79.605 Pain in left leg; M79.604 Pain in right leg; M21.371 Foot drop, right foot; F41.9 Anxiety disorder, unspecified; F43.10 Post-traumatic stress disorder, unspecified; Z66 Do not resuscitate
CPT/HCPCS: 99350

== ENCOUNTER 2019-01-27 08:00 | Outpatient (CLI) | payer MEDICARE, OTHER ==
[2019-01-27 12:34] LABS: HB2 TOTAL 13.8 g/dL; HEMOGLOBIN A1C 1.19 g/dL
== END 2019-01-27 23:59 | disposition home or self-care (01) ==
LOC: LAB 08:00
PROVIDERS: ATTEND Internal Medicine
DX: Z00.00 Encounter for general adult medical examination without abnormal findings (principal); R63.4 Abnormal weight loss; R53.83 Other fatigue; E03.9 Hypothyroidism, unspecified; E11.40 Type 2 diabetes mellitus with diabetic neuropathy, unspecified
CPT/HCPCS: 36415; 83036; 84443; 85651

== ENCOUNTER 2019-09-08 13:02 | Outpatient (CLI) | payer MEDICARE, OTHER ==
[2019-09-08 13:35] LABS: HB2 TOTAL 13.1 g/dL; HEMOGLOBIN A1C 0.69 g/dL
== END 2019-09-08 13:03 | disposition home or self-care (01) ==
LOC: LAB 13:02
PROVIDERS: ATTEND Nurse Practitioner
DX: E11.65 Type 2 diabetes mellitus with hyperglycemia (principal)
CPT/HCPCS: 83036

== ENCOUNTER 2020-01-12 12:41 | Outpatient (CLI) | payer MEDICARE, OTHER ==
[2020-01-12 13:17] LABS: HB2 TOTAL 14.7 g/dL; HEMOGLOBIN A1C 0.64 g/dL; HEMOGLOBIN A1C % 6.1 % (4.6-6.2)
== END 2020-01-12 12:42 | disposition home or self-care (01) ==
LOC: LAB 12:41
PROVIDERS: ATTEND Nurse Practitioner
DX: E11.65 Type 2 diabetes mellitus with hyperglycemia (principal)
CPT/HCPCS: 36415; 83036

== ENCOUNTER 2020-05-17 12:45 | Outpatient (CLI) | payer MEDICARE, OTHER | END 2020-05-17 23:59 | disposition home or self-care (01) | LOC: LAB 12:45 | PROVIDERS: ATTEND Ophthalmology | DX: Z01.818 Encounter for other preprocedural examination (principal); H25.812 Combined forms of age-related cataract, left eye; Z20.828 Contact with and (suspected) exposure to other viral communicable diseases ==

== ENCOUNTER 2020-05-20 08:23 | Day surgery (SDC) | payer MEDICARE, OTHER ==
[~2020-05-20 08:23] MED LIST: KETOROLAC 0.45% OPHTH DROPS ONE; PHENYLEPHRINE 2.5% OPHTH 2 ML DROPS ONE; PROPARACAINE 0.5% OPHTH DROPS 15 ML ONE
[2020-05-20] MEDS ORDERED: LACTATED RINGERS 500 ML IV ONE ×2 (08:53→10:05)
--- NOTE | 2020-05-20 09:22 | ANESTHESIA ---
Pre-Anesthesia VS, & Labs - Diagnosis left eye cataract - Procedure left CATIOL Height: 5 ft 5 in Weight (kg): 90 kg Body Mass Index: 33.0 BMI Classification: Obese - NPO >8 hours - Is Patient ?: No Home Medications and Allergies Acetaminophen [Tylenol Extra Strength] 1,000 mg PO Q6HR PRN 02/27/17 Allergies/Adverse Reactions: Allergies Allergy/AdvReac Type Severity Reaction Status Date / Time codeine Allergy Emesis Verified 05/19/20 15:51 cortisone Allergy Unknown Verified 04/20/20 14:17 dexamethasone Allergy "makes me Verified 05/19/20 15:51 crazy" erythromycin base Allergy Rash Verified 05/19/20 15:51 [Erythromycin Base] hydrocortisone Allergy "makes me Verified 05/19/20 15:51 [From Cortizone-10] crazy" lorazepam [From Ativan] Allergy Hallucinati Verified 04/20/20 14:17 ons prednisone Allergy Unknown Verified 04/20/20 14:17 Sulfa (Sulfonamide Allergy Rash Verified 05/19/20 15:51 Antibiotics) trazodone Allergy Edema Verified 04/20/20 14:17 epinephrine AdvReac Unknown Verified 05/19/20 15:51 NSAIDS (Non-Steroidal AdvReac bleeding Verified 05/19/20 15:51 Anti-Inflamma Anes History & Medical History - Anesthetic History Anesthesia Complications: reports: No previous complications Family history of Anesthesia Complications: Denies Family history of Malignant Hyperthermia: Denies - Medical History Cardiovascular: reports: None Pulmonary: reports: None Gastrointestinal: reports: GERD Urinary: reports: None Musculoskeletal: reports: Other Endocrine/Autoimmune: reports: Type 2 diabetes (no on medications, patient states "she has reversed it") Blood Disorders: reports: None Skin: reports: Other Smoking Status: Never smoker Other Past Medical History: uses wheelchair - Surgical History General: Cholecystectomy, Appendectomy, Colonoscopy Eyes Ears Nose Throat (EENT): Tonsil/Adenoidectomy Urologic:  Gynecologic: Mastectomy Exam General: Alert, Oriented x3, Cooperative, No acute distress Dental: WNL Mouth Openin Fingerbreadth Neck Mobility: Normal Mallampati classification: II Plan Anesthesia Type: MAC Consent for Procedure(s) Verified and Reviewed: Yes Code Status: Attempt Resuscitation ASA classification: 2-Mild systemic disease Is this case an emergency?: No
[2020-05-20] MEDS ORDERED: METOCLOPRAMIDE 10 MG/2 ML VIAL IVP PRN (09:23)
[2020-05-20] MEDS ORDERED: ePHEDrine 50 MG/ML VIAL IVP PRN (09:23)
[2020-05-20] MEDS ORDERED: NALOXONE 0.4 MG/ML VIAL IVP PRN (09:23)
[2020-05-20] MEDS ORDERED: ONDANSETRON 4 MG/2 ML VIAL IVP PRN (09:23)
[2020-05-20] MEDS ORDERED: ATROPINE ABBOJECT 1 MG/10 ML SYRINGE IVP PRN (09:23)
[2020-05-20] MEDS ORDERED: fentaNYL 100 MCG/2 ML VIAL IVP PRN (09:23)
[2020-05-20] MEDS ORDERED: MIDAZOLAM 2 MG/2 ML VIAL IVP ONE (09:49)
[2020-05-20] MEDS ORDERED: fentaNYL 100 MCG/2 ML VIAL IVP ONE (09:49)
[2020-05-20] MEDS ORDERED: BRIMONIDINE 0.2% OPHTH DROPS 5 ML OPTH ONE (09:52)
[2020-05-20] MEDS ORDERED: EPINEPHrine 1 MG/ML AMP IR ONE (09:52)
[2020-05-20] MEDS ORDERED: CHONDR SULF/HYALURONATE SYRINGE IO ONE (09:53)
[2020-05-20] MEDS ORDERED: BSS/LIDOCAINE/EPINEPHRINE 1 ML SYRINGE IO ONE (09:53)
[2020-05-20] MEDS ORDERED: TIMOLOL 0.5% OPHTH DROPS OPTH ONE (09:53)
[2020-05-20] MEDS ORDERED: PROPARACAINE 0.5% OPHTH DROPS 15 ML LEFTEYE ONE (09:53)
[2020-05-20] MEDS ORDERED: TRIAMCIN/MOXIFLOX OPHTHALMIC 0.6 ML VIAL IO ONE ×2 (09:54→13:24)
[2020-05-20] MEDS ORDERED: VANCOMYCIN OPHTHALMI 8MG/0.8ML 8 MG/0.8 ML SYRINGE IO ONE ×2 (09:55→13:25)
[2020-05-20] MEDS ORDERED: LACTATED RINGERS 1,000 ML IV SCH (10:00)
[2020-05-20 10:07] VITALS: BP 142/72
--- NOTE | 2020-05-20 10:43 | ANESTHESIA POST OP EVALUATION ---
Anesthesia Post Eval - Post Anesthesia Eval Vitals: Last Vital Signs Temp 36.4 C L 05/20/20 10:06 Pulse 76 05/20/20 10:06 Resp 16 05/20/20 10:06 BP 142/72 H 05/20/20 10:06 Pulse Ox 98 05/20/20 10:06 CV Function Including HR & BP: positive: Stable Pain Control: positive: Satisfactory Nausea & Vomiting: positive: Negative Mental Status: positive: Baseline Respiratory Status: Airway Patent Hydration Status: Satisfactory Anesthesia Complications: positive: None
[2020-05-20] MEDS ORDERED: EPINEPHrine 1 MG/ML AMP ONE (13:24)
[2020-05-20] MEDS ORDERED: BSS/LIDOCAINE/EPINEPHRINE 1 ML SYRINGE ONE (13:25)
[2020-05-20] MEDS ORDERED: BRIMONIDINE 0.2% OPHTH DROPS 5 ML ONE (13:25)
[2020-05-20] MEDS ORDERED: TIMOLOL 0.5% OPHTH DROPS ONE (13:25)
--- NOTE | 2020-05-20 21:16 | OPERATIVE REPORT ---
DATE OF SERVICE: 05/20/2020 Physician: Russ Trevizo MD PREOPERATIVE DIAGNOSIS: Visually significant cataract, left eye. This was her first cataract surger y. POSTOPERATIVE DIAGNOSIS: Visually significant cataract, left eye. This was her first cataract surge ry. PROCEDURE: Phacoemulsification with posterior chamber intraocular lens implant, left eye. SURGEON: Russ Trevizo MD ANESTHESIA: Monitored anesthesia care. COMPLICATIONS: None. OPERATIVE INDICATIONS: This is a 65-year-old woman with progressive vision loss in the left eye due to 3+ nuclear sclerotic, 2+ cortical, and vacuolar cataract. Best corrected visual acuity was 20/60, with glare to 20/250. INDICATIONS FOR SURGERY: Overall, decrease in vision, difficulty seeing words on a computer screen, difficulty reading, difficulty seeing words, closed caption or game scores on TV, difficulty seeing s treet signs, and feeling like she has a fog in front of her eyes and bright lights are too bright. S he was consented at length concerning risks and benefits of cataract surgery, after which she express ed a desire to proceed with surgery. OPERATIVE PROCEDURE: The patient was taken to OR #3 and placed under monitored anesthesia care. A s urgical timeout was conducted confirming correct patient, correct procedure, and correct surgical sit e. She was given topical anesthesia, and prepped and draped in the usual sterile fashion. The eye w as entered at the 6 and 3 o'clock positions. Intracameral Shugarcaine was injected into the anterior chamber, followed by Viscoat. A continuous-tear curvilinear capsulorrhexis was performed. Nucleus was hydrodissected and phacoemulsified. The cortex was evacuated using automated infusion and aspira tion. Provisc was injected in the capsular bag, and a 19.5 diopter intraocular lens was inserted int o the bag. Infusion and aspiration was used to evacuate the viscoelastic materials. The eye was inf lated to a physiologic pressure using balanced salt solution and found to be watertight. Approximate ly 0.25 mL of a mixture of triamcinolone and moxifloxacin was injected transsclerally into the vitreo us in the inferotemporal quadrant. An additional 0.55 mL of a mixture of triamcinolone, moxifloxacin and vancomycin was injected subconjunctivally in the superior quadrant for infection and inflammatio n prophylaxis. Wound integrity was checked with Weck-Soraya sponges. Patient was taken from the Operat ing Room in good condition and given postoperative instructions. TD: 05/20/2020 10:21
== END 2020-05-20 08:24 | disposition home or self-care (01) ==
LOC: SDS 08:23
PROVIDERS: ATTEND Ophthalmology
DX: E11.36 Type 2 diabetes mellitus with diabetic cataract (principal); H25.812 Combined forms of age-related cataract, left eye; E66.9 Obesity, unspecified; Z68.33 Body mass index [BMI] 33.0-33.9, adult
CPT/HCPCS: 66984; A9270; J3490; J7120; V2632

== ENCOUNTER 2020-06-18 13:08 | Outpatient (CLI) | payer MEDICARE, OTHER | END 2020-06-18 13:09 | disposition home or self-care (01) | LOC: LAB 13:08 | PROVIDERS: ATTEND Ophthalmology | DX: Z01.812 Encounter for preprocedural laboratory examination (principal); H25.811 Combined forms of age-related cataract, right eye; Z20.828 Contact with and (suspected) exposure to other viral communicable diseases ==

== ENCOUNTER 2020-06-24 08:19 | Day surgery (SDC) | payer MEDICARE, OTHER ==
[2020-06-24] MEDS ORDERED: LACTATED RINGERS 500 ML IV ONE ×2 (08:53→09:45)
--- NOTE | 2020-06-24 09:08 | ANESTHESIA ---
Pre-Anesthesia VS, & Labs - Diagnosis right senile combined cataract - Procedure right cataract extraction with iol Vital Signs: Temp Pulse Resp BP Pulse Ox 36.3 C L 81 18 148/85 H 97 06/24/20 08:43 06/24/20 08:43 06/24/20 08:43 06/24/20 08:43 06/24/20 08:43 Height: 5 ft 5 in Weight (kg): 90 kg Body Mass Index: 33.0 BMI Classification: Obese - NPO >8 hours - Is Patient ?: No - Lab Results Current Lab Results: Laboratory Tests 06/24/20 08:49: POC Whole Bld Glucose 177 H Home Medications and Allergies Acetaminophen [Tylenol Extra Strength] 1,000 mg PO Q6HR PRN 02/27/17 Allergies/Adverse Reactions: Allergies Allergy/AdvReac Type Severity Reaction Status Date / Time codeine Allergy Emesis Verified 05/19/20 15:51 cortisone Allergy Unknown Verified 04/20/20 14:17 dexamethasone Allergy "makes me Verified 05/19/20 15:51 crazy" erythromycin base Allergy Rash Verified 05/19/20 15:51 [Erythromycin Base] hydrocortisone Allergy "makes me Verified 05/19/20 15:51 [From Cortizone-10] crazy" lorazepam [From Ativan] Allergy Hallucinati Verified 04/20/20 14:17 ons prednisone Allergy Unknown Verified 04/20/20 14:17 Sulfa (Sulfonamide Allergy Rash Verified 05/19/20 15:51 Antibiotics) trazodone Allergy Edema Verified 04/20/20 14:17 epinephrine AdvReac Unknown Verified 05/19/20 15:51 NSAIDS (Non-Steroidal AdvReac bleeding Verified 05/19/20 15:51 Anti-Inflamma Anes History & Medical History - Anesthetic History Anesthesia Complications: reports: No previous complications - Medical History Cardiovascular: reports: None Pulmonary: reports: None Gastrointestinal: reports: GERD Urinary: reports: None Musculoskeletal: reports: None, Fibromyalgia Endocrine/Autoimmune: reports: Type 2 diabetes Blood Disorders: reports: None Skin: reports: Other Smoking Status: Never smoker - Surgical History General: Cholecystectomy, Appendectomy Eyes Ears Nose Throat (EENT): Tonsil/Adenoidectomy Urologic: Bladder surgery Gynecologic: Mastectomy Exam General: Alert Dental: WNL Mouth Opening: Greater than 4 Fingerbreadths Neck Mobility: Normal Mallampati classification: II Respiratory: Lungs clear Cardiovascular: Regular rate Plan Anesthesia Type: MAC Consent for Procedure(s) Verified and Reviewed: Yes Code Status: Attempt Resuscitation ASA classification: 2-Mild systemic disease Is this case an emergency?: No
[2020-06-24] MEDS ORDERED: MIDAZOLAM 2 MG/2 ML VIAL IVP ONE (09:11)
[2020-06-24] MEDS ORDERED: fentaNYL 100 MCG/2 ML VIAL IVP ONE (09:11)
[2020-06-24] MEDS ORDERED: BRIMONIDINE 0.2% OPHTH DROPS 5 ML OPTH ONE (09:13)
[2020-06-24] MEDS ORDERED: EPINEPHrine 1 MG/ML AMP IR ONE (09:13)
[2020-06-24] MEDS ORDERED: TIMOLOL 0.5% OPHTH DROPS OPTH ONE (09:13)
[2020-06-24] MEDS ORDERED: CHONDR SULF/HYALURONATE SYRINGE IO ONE (09:13)
[2020-06-24] MEDS ORDERED: TRIAMCIN/MOXIFLOX OPHTHALMIC 0.6 ML VIAL IO ONE ×2 (09:14→09:33)
[2020-06-24] MEDS ORDERED: BSS/LIDOCAINE/EPINEPHRINE 1 ML SYRINGE IO ONE (09:14)
[2020-06-24] MEDS ORDERED: PROPARACAINE 0.5% OPHTH DROPS 15 ML EACHEYE ONE (09:15)
[2020-06-24] MEDS ORDERED: VANCOMYCIN OPHTHALMI 8MG/0.8ML 8 MG/0.8 ML SYRINGE IO ONE ×2 (09:17→09:34)
[2020-06-24] MEDS ORDERED: BRIMONIDINE 0.2% OPHTH DROPS 5 ML ONE (09:33)
[2020-06-24] MEDS ORDERED: EPINEPHrine 1 MG/ML AMP ONE (09:33)
[2020-06-24] MEDS ORDERED: TIMOLOL 0.5% OPHTH DROPS ONE (09:33)
[2020-06-24] MEDS ORDERED: BSS/LIDOCAINE/EPINEPHRINE 1 ML SYRINGE ONE (09:34)
[2020-06-24 09:45] VITALS: BP 146/75
--- NOTE | 2020-06-24 12:44 | OPERATIVE REPORT ---
DATE OF SERVICE: 06/24/2020 Physician: Russ Trevizo MD PREOPERATIVE DIAGNOSIS: Visually significant cataract, right eye. Cataract surgery was performed on the left eye on 05/20/2020. POSTOPERATIVE DIAGNOSIS: Visually significant cataract, right eye. Cataract surgery was performed on the left eye on 05/20/2020. PROCEDURE: Phacoemulsification with posterior chamber intraocular lens implant, right eye. SURGEON: Russ Trevizo MD ANESTHESIA: Monitored anesthesia care. COMPLICATIONS: None. OPERATIVE INDICATIONS: This is a 65-year-old woman with progressive vision loss in the right eye due to 3+ nuclear sclerotic, 2+ cortical, and vacuolar cataract. Best corrected visual acuity was 20/30, with glare to 20/400 in the right eye. Indications for surgery are overall decrease in vision, difficulty seeing words on a computer screen, difficulty reading, difficulty seeing words, closed caption or game scores on TV, difficulty seeing street signs, difficulty driving in low light or at night, difficulty driving at night because of headlights from other vehicles, and difficulty with glare or bright lights in any situation. She was consented at length concerning risks and benefits of cataract surgery, after which she expressed a desire to proceed with surgery. OPERATIVE PROCEDURE: The patient was taken to OR #3 and placed under monitored anesthesia care and surgical timeout was conducted confirming correct patient, correct procedure, and correct surgical site. She was given topical anesthesia, and prepped and draped in the usual sterile fashion. The eye was entered at the 12, and 9 o'clock positions. Intracameral Shugarcaine was injected into the anterior chamber, followed by Viscoat. A continuous-tear curvilinear capsulorrhexis was performed. The nucleus was hydrodissected and phacoemulsified. The cortex was evacuated using automated infusion and aspiration. Provisc was injected in the capsular bag, and a 19.5 diopter intraocular lens was inserted into the bag. Infusion and aspiration was used to evacuate the viscoelastic materials. The eye was inflated to physiologic pressure using balanced salt solution and found to be watertight. Approximately 0.25 mL of a mixture of triamcinolone and moxifloxacin was injected transsclerally into the vitreous in inferotemporal quadrant. An additional 0.55 mL of a mixture of triamcinolone, moxifloxacin, and vancomycin was injected subconjunctivally in the superior quadrant for infection and inflammation prophylaxis. Wound integrity was checked with Weck-Soraya sponges. Patient was taken from the Operating Room in good condition and given postoperative instructions. TD: 06/24/2020 09:39 JAMILA
--- NOTE | 2020-06-24 13:32 | ANESTHESIA POST OP EVALUATION ---
Anesthesia Post Eval - Post Anesthesia Eval Vitals: Last Vital Signs Temp 36.4 C L 06/24/20 09:32 Pulse 84 06/24/20 09:32 Resp 16 06/24/20 09:32 BP 146/75 H 06/24/20 09:32 Pulse Ox 100 06/24/20 09:32 CV Function Including HR & BP: positive: Stable Pain Control: positive: Satisfactory Nausea & Vomiting: positive: Negative Mental Status: positive: Baseline Respiratory Status: Airway Patent Hydration Status: Satisfactory Anesthesia Complications: positive: None
== END 2020-06-24 08:20 | disposition home or self-care (01) ==
LOC: SDS 08:19
PROVIDERS: ATTEND Ophthalmology
DX: E11.36 Type 2 diabetes mellitus with diabetic cataract (principal); H25.811 Combined forms of age-related cataract, right eye; E11.3293 Type 2 diabetes mellitus with mild nonproliferative diabetic retinopathy without macular edema, bilateral; E66.9 Obesity, unspecified; Z68.33 Body mass index [BMI] 33.0-33.9, adult
CPT/HCPCS: 66984; A9270; J3490; J7120; V2632

== ENCOUNTER 2020-10-04 12:47 | Outpatient (CLI) | payer MEDICARE | END 2020-10-04 12:48 | disposition home or self-care (01) | LOC: LAB 12:47 | PROVIDERS: ATTEND Nurse Practitioner | DX: Z53.9 Procedure and treatment not carried out, unspecified reason (principal) ==

== ENCOUNTER 2021-09-25 09:44 | Outpatient (CLI) | payer MEDICARE, MEDICAID | END 2021-09-25 09:45 | disposition critical access hospital (66) | LOC: EMS 09:44 | DX: R11.2 Nausea with vomiting, unspecified (principal); R53.1 Weakness; R10.9 Unspecified abdominal pain | CPT/HCPCS: A0425; A0429 ==

== ENCOUNTER 2021-09-25 09:51 | Emergency (ER) | payer MEDICARE, MEDICAID ==
[2021-09-25] MEDS ORDERED: ONDANSETRON 4 MG/2 ML VIAL IVP STA (10:15)
[2021-09-25] MEDS ORDERED: SODIUM CHLORIDE 0.9% 1,000 ML IV STA (10:15)
--- NOTE | 2021-09-25 10:16 | ED Physician Documentation ---
PD HPI NVD - Stated complaint Stated Complaint: N/V/FEVER - Chief complaint Chief Complaint: Abd Pain - History obtained from History obtained from: Patient - History of Present Illness Timing - onset: How many days ago (4) Timing - duration: Days (4) Timing - details: Abrupt onset (onset initially of nausea, vomiting and diarrhea, with development of upper abd pain just yesterday.), Still present Associated symptoms: Fever, Abdominal pain (upper abdomen just the past day after forceful vomiting.). No: Chest pain, Hematemesis, Near syncope / syncope (but feeling weak and lightheaded.) Contributing factors: No: Sick contact, Bad food, Recent antibiotics, Alcohol use Improved by: No: Vomiting Worsened by: Eating Similar symptoms before: Has not had sx before Recently seen: Not recently seen Review of Systems Constitutional: reports: Fever, Chills Nose: denies: Rhinorrhea / runny nose, Congestion Throat: denies: Sore throat Respiratory: denies: Cough GI: reports: Abdominal Pain, Nausea, Vomiting, Diarrhea. denies: Hematemesis, Bloody / black stool : denies: Dysuria, Frequency Skin: denies: Rash, Lesions Neurologic: reports: Generalized weakness. denies: Near syncope PD PAST MEDICAL HISTORY - Past Medical History Past Medical History: Yes Cardiovascular: None Respiratory: None Neuro: None Endocrine/Autoimmune: Type 2 diabetes GI: GERD HISTORY DEPARTMENT CHAIR: Breast cancer : None HEENT: None Psych: Anxiety Musculoskeletal: None, Fibromyalgia Derm: Other - Past Surgical History Past Surgical History: Yes General: Cholecystectomy, Appendectomy /HISTORY DEPARTMENT CHAIR: Mastectomy HEENT: Tonsil/Adenoidectomy - Present Medications Home Medications: Ambulatory Orders Medication Instructions Recorded Confirmed Acetaminophen [Tylenol Extra 650 mg PO Q6HR PRN 02/27/17 09/25/21 Strength] Ondansetron Odt [Zofran] 4 mg TL Q6H PRN #20 tablet 09/25/21 Pantoprazole Sodium 20 mg PO DAILY 20 Days #20 tab 09/25/21 - Allergies Allergies/Adverse Reactions: Allergies Allergy/AdvReac Type Severity Reaction Status Date / Time codeine Allergy Emesis Verified 09/25/21 10:03 cortisone Allergy Unknown Verified 09/25/21 10:03 dexamethasone Allergy "makes me Verified 09/25/21 10:03 crazy" erythromycin base Allergy Rash Verified 09/25/21 10:03 [Erythromycin Base] hydrocortisone Allergy "makes me Verified 09/25/21 10:03 [From Cortizone-10] crazy" lorazepam [From Ativan] Allergy Hallucinati Verified 09/25/21 10:03 ons prednisone Allergy Unknown Verified 09/25/21 10:03 Sulfa (Sulfonamide Allergy Rash Verified 09/25/21 10:03 Antibiotics) trazodone Allergy Edema Verified 09/25/21 10:03 epinephrine AdvReac Unknown Verified 09/25/21 10:03 NSAIDS (Non-Steroidal AdvReac bleeding Verified 09/25/21 10:03 Anti-Inflamma - Social History Does the pt smoke?: No Smoking Status: Never smoker Does the pt drink ETOH?: No Does the pt have substance abuse?: No - Immunizations Immunizations are current?: Yes - POLST Patient has POLST: Yes POLST Status: Full Code PD ED PE NORMAL - Vitals Vital signs reviewed: Yes - General General: Alert and oriented X 3, Well developed/nourished, Other (Uncomfortable and holding an emesis bag. Upper abdominal pain.) - HEENT HEENT: Pharynx benign. No: Moist mucous membranes - Neck Neck: Supple, no meningeal sign, No adenopathy - Cardiac Cardiac: RRR, No murmur - Respiratory Respiratory: Clear bilaterally - Abdomen Abdomen: Soft, Non distended, Other (She is tender primarily epigastric and right upper quadrant with some local guarding but no rebound no referred tenderness.). No: Normal bowel sounds (increased diffusely.) - Female Female : Deferred - Rectal Rectal: Deferred - Back Back: No CVA TTP - Derm Derm: Normal color, Warm and dry, No rash - Extremities Extremities: No deformity, Other (1+ edema in both legs which patient states is chronic. There is sensitivity of the skin consistent with her neuropathy.) Results - Vitals Vitals: Vital Signs - 24 hr 09/25/21 09/25/21 09/25/21 10:00 12:03 14:00 Temperature 36 C L 36.1 C L 36.5 C Heart Rate 109 H 104 H 96 Respiratory 18 16 18 Rate Blood Pressure 135/92 H 140/90 H 110/65 O2 Saturation 98 99 95 Oxygen O2 Source Room air - Labs Labs: Laboratory Tests 09/25/21 09/25/21 09/25/21 10:22 10:22 10:22 WBC 11.8 H RBC 5.15 Hgb 14.8 Hct 45.6 MCV 88.5 MCH 28.7 MCHC 32.5 RDW 13.9 Plt Count 215 MPV 9.4 Neut # (Auto) 10.1 H Lymph # (Auto) 0.8 L [place] # (Auto) 0.8 Eos # (Auto) 0.1 Baso # (Auto) 0.0 Absolute Nucleated RBC 0.00 Nucleated RBC % 0.0 Sodium 133 L Potassium 3.4 L Chloride 88 L Carbon Dioxide 32 Anion Gap 13.0 BUN 27 H Creatinine 1.0 Estimated GFR (MDRD) 55 L Glucose 315 H Lactic Acid 1.9 Calcium 11.3 H Total Bilirubin 1.0 AST 14 ALT 13 Alkaline Phosphatase 60 Total Protein 7.7 Albumin 3.8 Globulin 3.9 Albumin/Globulin Ratio 1.0 Lipase 30 Serum Ketones NEGATIVE - Rads (name of study) abd/pelvic CT Radiology: Prelim report reviewed (CT showed prior cholecystectomy. Appendix not seen. There is a distended stomach with inflammation at the gastric antrum and proximal duodenum. No signs of perforation nor leakage. Rest of the abdomen is normal.), See rad report PD MEDICAL DECISION MAKING - ED course Complexity details: reviewed results (Labs are fairly normal. CT does show some inflammation at the outlet of the stomach and proximal duodenum. This may be primary with primarily gastritis or secondary to the repetitive vomiting. We will assess p.o. tolerance.), re-evaluated patient, considered differential (Symptoms sound likely to be possible food related or viral gastroenteritis with vomiting and diarrhea initially. Now predominantly nausea and vomiting frequently and 1 day of upper abdominal pain. Consider gastritis versus pancreatitis versus common bile duct process.), d/w patient ED course: appears to have gastric outlet and duodenal inflammation causing outflow blockage. She is tolerating PO sips and would like to try going home. Has had side effects of many meds in the past, so she wants to keep meds minimal. Departure - Departure Disposition: 01 Home, Self Care Clinical Impression: Abdominal pain, Vomiting, Gastritis Condition: Stable Record reviewed to determine appropriate education?: Yes Instructions: ED Gastritis, ED Nausea Vomiting Follow-Up: Emma Garner ARNP [Primary Care Provider] - Prescriptions: Pantoprazole Sodium 20 mg PO DAILY 20 Days #20 tab Ondansetron Odt [Zofran] 4 mg TL Q6H PRN #20 tablet PRN Reason: Nausea / Vomiting Comments: Frequent fluids and liquid diet for the next couple of days. It is unclear whether the initial symptoms were related to a viral "stomach flu" or some food intolerance versus primarily an irritation of the stomach. However on your CT scan right now there is inflammation at the outlet of the stomach and the initial part of the small intestine called the duodenum. It looks like food and fluid is not moving out of your stomach well with the subsequent vomiting. You seem to be tolerating small amounts of liquids right now. Keep it small and frequent initially. Use ondansetron if needed for nausea. Tylenol tablets or liquid to help with the pains. I would avoid NSAIDs such as ibuprofen or naproxen. These could further irritate your stomach. Follow-up with your primary care later this week for recheck. Return sooner if repetitive vomiting or continued pain despite the home treatment. I would suggest acid reducing medicine such as pantoprazole daily for the next few weeks to help with the stomach irritation. I transmitted your prescriptions to the [facility] pharmacy as you requested realizing they are not open today so you will be able to get your medicines right now, but tomorrow. Discharge Date/Time: 09/25/21 14:14
[2021-09-25 10:35] LABS: BASOPHILS % (AUTO) 0.2 %; EOSINOPHILS # (AUTO) 0.1 10^3/uL (0.0-0.7); HCT - HEMATOCRIT 45.6 % (37.0-47.0); HGB - HEMOGLOBIN 14.8 g/dL (12.0-16.0); LYMPHOCYTES # (AUTO) 0.8 10^3/uL (1.5-3.5); LYMPHOCYTES % (AUTO) 6.9 %; MEAN CORPUSCULAR HEMOGLOBIN 28.7 pg (27.0-31.0); MEAN CORPUSCULAR HGB CONC 32.5 g/dL (32.0-36.0); MEAN CORPUSCULAR VOLUME 88.5 fL (81.0-99.0); MEAN PLATELET VOLUME 9.4 fL (7.9-10.8); MONOCYTES # (AUTO) 0.8 10^3/uL (0.0-1.0); MONOCYTES % (AUTO) 6.4 %; NEUTROPHILS # (AUTO) 10.1 10^3/uL (1.5-6.6); NEUTROPHILS % (AUTO) 85.2 %; PLT - PLATELET COUNT 215 10^3/uL (130-450); RED BLOOD COUNT 5.15 10^6/uL (4.20-5.40); RED CELL DISTRIBUTION WIDTH 13.9 % (12.0-15.0); WHITE BLOOD COUNT 11.8 x10^3/uL (4.8-10.8)
[2021-09-25] MEDS ORDERED: IOVERSOL 320 100 ML VIAL IVP ONE ×2 (10:38→11:19)
[2021-09-25 10:45] LABS: ALBUMIN 3.8 g/dL (3.2-5.5); ALKALINE PHOSPHATASE 60 IU/L (42-121); ALT ALANINE AMINOTRANSFERASE 13 IU/L (10-60); AST ASPARTATE AMINOTRANSFERASE 14 IU/L (10-42); BUN - BLOOD UREA NITROGEN 27 mg/dL (6-20); CALCIUM 11.3 mg/dL (8.5-10.3); CARBON DIOXIDE - CO2 32 mmol/L (21-32); CHLORIDE 88 mmol/L (101-111); GFR - MDRD 55 (>89); GLUCOSE 315 mg/dL (70-100); LIPASE 30 U/L (22-51); POTASSIUM 3.4 mmol/L (3.5-5.0); SODIUM 133 mmol/L (135-145); TOTAL PROTEIN 7.7 g/dL (6.7-8.2)
--- NOTE | 2021-09-25 11:32 | CT Report ---
PROCEDURE: Abdomen/Pelvis W INDICATIONS: Abdominal pain, acute, nonlocalized CONTRAST: IV CONTRAST: Optiray 320 ml: 100 PO CONTRAST: *NO PO CONTRAST TECHNIQUE: After the administration of IV contrast, 5 mm thick sections acquired from the diaphragms to the symp hysis. 5 mm thick coronal and sagittal reformats were acquired. For radiation dose reduction, the f ollowing was used: automated exposure control, adjustment of mA and/or kV according to patient size. COMPARISON: Correlation is made with lumbar and pelvis CT examinations, 02/21/2017 FINDINGS: Image quality: Excellent. ABDOMEN: Lung bases: Lung bases are clear. Heart size is normal. A small to moderate hiatal hernia is seen. Mild to moderate coronary artery calcification is seen. Solid organs: Diffuse fatty liver infiltration can be seen. The liver demonstrates normal size and echogenicity. No liver lesions are detected. The spleen demonstrates normal size. There is a likely subcentimeter cyst seen along the lateral aspect of the spleen. Gallbladder has been removed. Bilia ry system is non dilated. Pancreas enhances normally. No adrenal nodules. There is a left pelvic kidney seen, with prominent simple cysts. The right kidney is unremarkable. No john hydronephrosis is seen. Peritoneum and bowel: The stomach is fluid distended. There is apparent thickening seen in the gastri c antrum and the proximal duodenum. Regional inflammatory changes are seen. No john perforation can be seen. No dilated loops of small bowel are seen. No significant colonic abnormality is seen. Nodes and vessels: No retroperitoneal or mesenteric adenopathy by size criteria. Aorta and inferior vena cava are normal in size. Miscellaneous: No ventral hernias. PELVIS: Genitourinary: Bladder wall thickness is normal. The uterus appears atrophic. No adnexal masses are seen on either side. Miscellaneous: No inguinal hernias or adenopathy. Bones: No suspicious bony lesions. No vertebral body compression fractures. Age-appropriate degene rative changes are seen. Moderate dextroconvex scoliotic curvature is seen. IMPRESSION: Fluid distended stomach with abnormal wall thickening of the gastric antrum and the prox imal duodenum. No john perforation can be seen. If clinically appropriate, please consider short-term follow-up versus upper endoscopy for further ev aluation. A left pelvic kidney is seen, with prominent simple appearing cysts. Incidental note is made of: Small to moderate hiatal hernia Mild to moderate coronary artery calcification Cholecystectomy Dextroconvex scoliotic curvature Reviewed by: Keyur Malone MD on 09/25/2021 10:31 AM [facility] Approved by: Keyur Malone MD on 09/25/2021 10:31 AM [facility] Station ID: [id number]
[2021-09-25] MEDS ORDERED: ACETAMINOPHEN 1,000 MG/100 ML 100 ML IV ONE (11:59)
[2021-09-25] MEDS ORDERED: PANTOPRAZOLE 40 MG VIAL IVP STA (11:59)
[2021-09-25] MEDS ORDERED: KETOROLAC 15 MG/ML VIAL IVP STA (11:59)
[2021-09-25 12:05] LABS: KETONES, SERUM (ACETEST) NEGATIVE (NEGATIVE)
[2021-09-25 14:03] VITALS: BP 110/65
== END 2021-09-25 14:14 | disposition home or self-care (01) ==
LOC: EDUNIT# → ED 09:51
DX: K29.70 Gastritis, unspecified, without bleeding (principal); E11.9 Type 2 diabetes mellitus without complications
CPT/HCPCS: 36415; 74177; 80053; 82009; 83605; 83690; 85025; 96365; 96375; 99284; J0131; Q9967

== ENCOUNTER 2021-12-01 08:30 | Outpatient (CLI) | payer MEDICARE, MEDICAID | END 2021-12-01 08:31 | disposition critical access hospital (66) | LOC: EMS 08:30 | DX: R11.2 Nausea with vomiting, unspecified (principal); R19.7 Diarrhea, unspecified; R10.817 Generalized abdominal tenderness; R53.1 Weakness | CPT/HCPCS: A0425; A0427 ==

== ENCOUNTER 2021-12-01 08:37 | Emergency (ER) | payer MEDICARE, MEDICAID ==
--- NOTE | 2021-12-01 09:57 | ED Physician Documentation ---
PD HPI NVD - Stated complaint Stated Complaint: N/V/D WEAKNESS - Chief complaint Chief Complaint: Abd Pain - History obtained from History obtained from: Patient - History of Present Illness Timing - onset: How many days ago (3) Timing - duration: Days (3) Timing - details: Abrupt onset, Still present Associated symptoms: Abdominal pain (intermittent upper to mid abd pain, with feeling of bloating.), Loss of appetite. No: Fever Contributing factors: No: Sick contact, Bad food, Recent antibiotics Similar symptoms before: Diagnosis (had similar 2 months ago and seen in ER with CT/labs showing duodenitis. Rx with Pantoprazole, antacids, and ZOfran and got better within a week. Was okay in the interval time until 3 days ago. Is not still on PPI.) Recently seen: Emergency Dept (2 months ago) Review of Systems Constitutional: denies: Fever, Chills Nose: denies: Rhinorrhea / runny nose, Congestion Throat: denies: Sore throat Respiratory: denies: Cough GI: reports: Abdominal Pain, Nausea, Vomiting, Diarrhea. denies: Bloody / black stool : denies: Dysuria, Frequency Neurologic: reports: Generalized weakness. 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: Breast cancer : None HEENT: None Psych: Anxiety Musculoskeletal: None, Fibromyalgia Derm: Other - Past Surgical History Past Surgical History: Yes General: Cholecystectomy, Appendectomy /RETIREMENT CONSULTANT: Mastectomy HEENT: Tonsil/Adenoidectomy - Present Medications Home Medications: Ambulatory Orders Medication Instructions Recorded Confirmed Acetaminophen [Tylenol Extra 650 mg PO Q6HR PRN 02/27/17 11/29/21 Strength] Ondansetron Odt [Zofran] 4 mg TL Q6H PRN #20 tablet 09/25/21 11/29/21 Pantoprazole Sodium 20 mg PO DAILY 20 Days #20 tab 09/25/21 11/29/21 Ondansetron Odt [Zofran] 4 mg TL Q6H PRN #20 tablet 12/01/21 Pantoprazole [Protonix] 40 mg PO DAILY 30 Days #30 tablet 12/01/21 Sucralfate [Carafate] 1 gm PO ACHS #20 tablet 12/01/21 - Allergies Allergies/Adverse Reactions: Allergies Allergy/AdvReac Type Severity Reaction Status Date / Time codeine Allergy Emesis Verified 09/25/21 10:03 cortisone Allergy Unknown Verified 09/25/21 10:03 dexamethasone Allergy "makes me Verified 09/25/21 10:03 crazy" erythromycin base Allergy Rash Verified 09/25/21 10:03 [Erythromycin Base] hydrocortisone Allergy "makes me Verified 09/25/21 10:03 [From Cortizone-10] crazy" lorazepam [From Ativan] Allergy Hallucinati Verified 09/25/21 10:03 ons prednisone Allergy Unknown Verified 09/25/21 10:03 Sulfa (Sulfonamide Allergy Rash Verified 09/25/21 10:03 Antibiotics) trazodone Allergy Edema Verified 09/25/21 10:03 epinephrine AdvReac Unknown Verified 09/25/21 10:03 NSAIDS (Non-Steroidal AdvReac bleeding Verified 09/25/21 10:03 Anti-Inflamma - Social History Does the pt smoke?: No Smoking Status: Never smoker Does the pt drink ETOH?: No Does the pt have substance abuse?: No - Immunizations Immunizations are current?: Yes - POLST Patient has POLST: Yes POLST Status: Full Code PD ED PE NORMAL - Vitals Vital signs reviewed: Yes - General General: Alert and oriented X 3, No acute distress, Well developed/nourished - Neck Neck: Supple, no meningeal sign, No adenopathy - Cardiac Cardiac: RRR, No murmur - Respiratory Respiratory: Clear bilaterally - Abdomen Abdomen: Normal bowel sounds, Soft, Non distended, No organomegaly, Other (mild tenderness mid to upper abd midline. Not in RUQ. NO guarding, percussion nor rebound tendferness. ) Results - Vitals Vitals: Vital Signs - 24 hr 12/01/21 12/01/21 12/01/21 08:43 09:15 11:16 Temperature 37.4 C Heart Rate 90 108 H 94 Respiratory 18 16 20 Rate Blood Pressure 156/117 H 175/99 H 199/95 H O2 Saturation 99 93 95 12/01/21 12/01/21 13:11 14:11 Temperature 37 C Heart Rate 84 Respiratory 18 Rate Blood Pressure 145/86 H 144/82 H O2 Saturation 97 Oxygen O2 Source Room air - Labs Labs: Laboratory Tests 12/01/21 12/01/21 10:31 10:31 WBC 8.9 RBC 5.12 Hgb 14.7 Hct 45.0 MCV 87.9 MCH 28.7 MCHC 32.7 RDW 14.4 Plt Count 186 MPV 9.1 Neut # (Auto) 6.7 H Lymph # (Auto) 1.3 L [place] # (Auto) 0.8 Eos # (Auto) 0.0 Baso # (Auto) 0.0 Absolute Nucleated RBC 0.00 Nucleated RBC % 0.0 Sodium 141 Potassium 3.4 L Chloride 92 L Carbon Dioxide 34 H Anion Gap 15.0 H BUN 21 H Creatinine 0.8 Estimated GFR (MDRD) 71 L Glucose 203 H Calcium 10.9 H Magnesium 1.8 Total Bilirubin 0.5 AST 19 ALT 14 Alkaline Phosphatase 65 Total Protein 8.0 Albumin 4.0 Globulin 4.0 Albumin/Globulin Ratio 1.0 Lipase 55 H PD MEDICAL DECISION MAKING - ED course Complexity details: reviewed results, re-evaluated patient (she is feeling better with fluids and meds IV. Discussed further eval with her and shared decision to treat like prior duodenitis and not do CT today. ), considered differential, d/w patient Departure - Departure Disposition: 01 Home, Self Care Clinical Impression: Nausea and vomiting Qualifiers: Vomiting type: unspecified Qualified Code(s): R11.2 - Nausea with vomiting, unspecified Abdominal pain Qualifiers: Abdominal location: upper abdomen, unspecified Qualified Code(s): R10.10 - Upper abdominal pain, unspecified Condition: Stable Record reviewed to determine appropriate education?: Yes Follow-Up: Emma Garner ARNP [Primary Care Provider] - Prescriptions: Sucralfate [Carafate] 1 gm PO ACHS #20 tablet Pantoprazole [Protonix] 40 mg PO DAILY 30 Days #30 tablet Ondansetron Odt [Zofran] 4 mg TL Q6H PRN #20 tablet PRN Reason: Nausea / Vomiting Comments: Your blood sugar was slightly elevated at 203. Your potassium is mildly low at 3.4. Your kidney function and blood count are good. We can treat this like your prior episode of duodenitis with similar medications of ondansetron if needed for nausea. Also pantoprazole acid reducing medicine for the next several weeks. For the next several days you can also add sacral fate 3-4 times daily to help coat with the stomach and reduce irritation. Continue your other usual medicines. Recheck if not improved well over the next couple of days and return if worse. I transmitted your prescriptions to the [facility] pharmacy here in [place]. Discharge Date/Time: 12/01/21 14:11
[2021-12-01] MEDS ORDERED: ONDANSETRON 4 MG/2 ML VIAL IVP STA (10:20)
[2021-12-01] MEDS ORDERED: KETOROLAC 15 MG/ML VIAL IVP STA (10:20)
[2021-12-01] MEDS ORDERED: SODIUM CHLORIDE 0.9% 1,000 ML IV STA (10:20)
[2021-12-01] MEDS ORDERED: ACETAMINOPHEN 1,000 MG/100 ML 100 ML IV ONE (10:21)
[2021-12-01] MEDS ORDERED: PANTOPRAZOLE 40 MG VIAL IVP STA (10:21)
[2021-12-01 10:36] LABS: BASOPHILS % (AUTO) 0.2 %; EOSINOPHILS % (AUTO) 0.3 %; HGB - HEMOGLOBIN 14.7 g/dL (12.0-16.0); LYMPHOCYTES # (AUTO) 1.3 10^3/uL (1.5-3.5); MEAN CORPUSCULAR HEMOGLOBIN 28.7 pg (27.0-31.0); MEAN CORPUSCULAR HGB CONC 32.7 g/dL (32.0-36.0); MEAN CORPUSCULAR VOLUME 87.9 fL (81.0-99.0); MEAN PLATELET VOLUME 9.1 fL (7.9-10.8); MONOCYTES # (AUTO) 0.8 10^3/uL (0.0-1.0); MONOCYTES % (AUTO) 8.5 %; NEUTROPHILS # (AUTO) 6.7 10^3/uL (1.5-6.6); NEUTROPHILS % (AUTO) 75.8 %; PLT - PLATELET COUNT 186 10^3/uL (130-450); RED BLOOD COUNT 5.12 10^6/uL (4.20-5.40); RED CELL DISTRIBUTION WIDTH 14.4 % (12.0-15.0); WHITE BLOOD COUNT 8.9 x10^3/uL (4.8-10.8)
[2021-12-01 10:51] LABS: BILIRUBIN,TOTAL 0.5 mg/dL (0.2-1.0); CALCIUM 10.9 mg/dL (8.5-10.3); CREATININE 0.8 mg/dL (0.4-1.0); MAGNESIUM 1.8 mg/dL (1.7-2.8); POTASSIUM 3.4 mmol/L (3.5-5.0)
[2021-12-01 14:12] VITALS: BP 144/82
== END 2021-12-01 14:11 | disposition home or self-care (01) ==
LOC: EDUNIT# → ED 08:37
DX: R10.10 Upper abdominal pain, unspecified (principal); R11.2 Nausea with vomiting, unspecified
CPT/HCPCS: 36415; 80053; 83690; 83735; 85025; 96374; 96375; 99282; 99284; J0131

== ENCOUNTER 2022-01-05 08:56 | Outpatient (CLI) | payer MEDICARE, MEDICAID ==
--- NOTE | 2022-01-05 15:01 | Nuclear Medicine Report ---
PROCEDURE: Bone Whole Body INDICATIONS: BREAST CA RADIOPHARMACEUTICAL: 26.9 mCi Tc-99m MDP IV. TECHNIQUE: Delayed whole-body scintigrams were obtained approximately 3-4 hours after intravenous injection of r adiotracer. Anterior and posterior views were acquired from vertex to feet. Additional left and rig ht lateral views of the calvarium were obtained. COMPARISON: Nuclear medicine whole-body bone scan 08/24/2016. FINDINGS: Finding. Increased radiotracer uptake identified in the sternum, ischia bone on the right pelvis, rig ht femoral mid shaft, right medial femoral condyle, proximal right tibia, lower thoracic spine and up per lumbar spine compatible with osseous metastatic disease. No areas of photopenia identified in the osseous skeleton. No abnormal soft tissue uptake identified. Activity the kidneys is normal and symm etric. IMPRESSION: Osseous metastatic disease involving the sternum, thoracic spine, lumbar spine, right pe lvis, right femur and right tibia. Reviewed by: Deana Ovalle MD, PhD on 01/05/2022 3:00 PM PDT Approved by: Deana Ovalle MD, PhD on 01/05/2022 3:00 PM PDT Station ID: [id number]
== END 2022-01-05 08:57 | disposition home or self-care (01) ==
LOC: DI 08:56
PROVIDERS: ATTEND Internal Medicine Hematology & Oncology
DX: C50.919 Malignant neoplasm of unspecified site of unspecified female breast (principal); C79.51 Secondary malignant neoplasm of bone
CPT/HCPCS: 78306

== ENCOUNTER 2022-06-12 14:58 | Outpatient (CLI) | payer MEDICARE, MEDICAID | END 2022-06-12 14:59 | disposition critical access hospital (66) | LOC: EMS 14:58 | DX: M79.651 Pain in right thigh (principal); C79.51 Secondary malignant neoplasm of bone | CPT/HCPCS: A0425; A0429 ==

== ENCOUNTER 2022-06-12 15:34 | Observation (INO) | payer MEDICARE, MEDICAID ==
[2022-06-12] MEDS ORDERED: ACETAMINOPHEN 1,000 MG/100 ML 1,000 MG/100 ML BAG IV ONE (15:48)
--- NOTE | 2022-06-12 15:52 | ED Physician Documentation ---
History of Present Illness - Stated complaint Stated Complaint: R LEG PX - Chief complaint Chief Complaint: General - Additonal information Additional information: Patient 67-year-old female presenting to the emergency department with right leg pain. Reports past medical significant for metastatic breast cancer. Known metastasis to lumbar spine as well as right sided femur and tib-fib per patient history. Has had pain in this area before but however became significantly worse 4-5 days ago. No longer able to perform activities of daily living and EMS needed to pick her up from her house out of her bathtub. Reports that she does not take medication for pain with the exception of Tylenol due to being "highly sensitive" to pain medication. Denies any new fall or trauma to theHip or leg. Review of Systems Ten Systems: 10 systems reviewed and negative Constitutional: denies: Fever Eyes: denies: Loss of vision Ears: denies: Loss of hearing Nose: denies: Rhinorrhea / runny nose Throat: denies: Dental pain / toothache Cardiac: denies: Chest pain / pressure Respiratory: denies: Dyspnea GI: denies: Abdominal Pain : denies: Dysuria Skin: denies: Rash Musculoskeletal: denies: Neck pain PD PAST MEDICAL HISTORY - Past Medical History Cardiovascular: None Respiratory: None Neuro: None Endocrine/Autoimmune: Type 2 diabetes GI: GERD [employer]: Breast cancer : None HEENT: None Psych: Anxiety Musculoskeletal: None, Fibromyalgia Derm: Other - Past Surgical History Past Surgical History: Yes General: Cholecystectomy, Appendectomy /[employer]: Mastectomy HEENT: Tonsil/Adenoidectomy - Present Medications Home Medications: Ambulatory Orders Medication Instructions Recorded Confirmed Acetaminophen [Tylenol Extra 650 mg PO Q6HR PRN 02/27/17 01/24/22 Strength] - Allergies Allergies/Adverse Reactions: Allergies Allergy/AdvReac Type Severity Reaction Status Date / Time codeine Allergy Emesis Verified 09/25/21 10:03 cortisone Allergy Unknown Verified 09/25/21 10:03 dexamethasone Allergy "makes me Verified 09/25/21 10:03 crazy" erythromycin base Allergy Rash Verified 09/25/21 10:03 [Erythromycin Base] hydrocortisone Allergy "makes me Verified 09/25/21 10:03 [From Cortizone-10] crazy" lorazepam [From Ativan] Allergy Hallucinati Verified 09/25/21 10:03 ons prednisone Allergy Unknown Verified 09/25/21 10:03 Sulfa (Sulfonamide Allergy Rash Verified 09/25/21 10:03 Antibiotics) trazodone Allergy Edema Verified 09/25/21 10:03 epinephrine AdvReac Unknown Verified 09/25/21 10:03 NSAIDS (Non-Steroidal AdvReac bleeding Verified 09/25/21 10:03 Anti-Inflamma - Social History Does the pt smoke?: No Smoking Status: Never smoker Does the pt drink ETOH?: No Does the pt have substance abuse?: No - Immunizations Immunizations are current?: Yes - POLST Patient has POLST: Yes POLST Status: Full Code PD ED PE NORMAL - Vitals Vital signs reviewed: Yes - General General: Alert and oriented X 3, Other (Patient extremely distressed, screaming in pain.) - HEENT HEENT: Atraumatic, PERRL, EOMI - Neck Neck: Supple, no meningeal sign, No bony TTP, No adenopathy - Cardiac Cardiac: RRR - Respiratory Respiratory: No respiratory distress, Clear bilaterally - Abdomen Abdomen: Normal bowel sounds - Female Female : Deferred - Rectal Rectal: Deferred - Extremities Extremities: Other (Patient has dropfoot to the right foot, some muscle wasting noted at the foot however there is significant swelling of the right thigh and calf in comparison to the left.) Results - Vitals Vitals: Vital Signs - 24 hr 06/12/22 06/12/22 06/12/22 15:41 15:50 17:51 Temperature 36.7 C Heart Rate 99 98 95 Respiratory 20 20 20 Rate Blood Pressure 133/90 H 133/90 H 152/98 H O2 Saturation 100 98 100 If not protocol : Oxygen Flow, liters/minute 06/12/22 06/12/22 06/12/22 19:10 19:46 20:44 Temperature 36.9 C Heart Rate 94 98 103 H Respiratory 17 17 17 Rate Blood Pressure 160/96 H 147/90 H 111/59 L O2 Saturation 97 100 96 If not protocol 2 : Oxygen Flow, liters/minute 06/12/22 06/12/22 06/12/22 21:12 22:10 22:37 Temperature 37.2 C Heart Rate 96 99 97 Respiratory 16 16 17 Rate Blood Pressure 135/72 H 149/99 H 139/86 H O2 Saturation 97 97 99 If not protocol 3 2 : Oxygen Flow, liters/minute 06/12/22 06/13/22 06/13/22 23:58 01:00 01:35 Temperature Heart Rate 94 86 87 Respiratory 15 16 16 Rate Blood Pressure 142/90 H 147/94 H 147/94 H O2 Saturation 96 96 97 If not protocol 2 2 2 : Oxygen Flow, liters/minute 06/13/22 06/13/22 06/13/22 02:39 03:59 04:10 Temperature Heart Rate 91 91 107 H Respiratory 16 16 Rate Blood Pressure 145/85 H 153/89 H O2 Saturation 97 94 95 If not protocol 2 2 2 : Oxygen Flow, liters/minute Oxygen O2 Source Nasal cannula - Labs Labs: Laboratory Tests 06/12/22 06/12/22 06/12/22 16:08 16:08 16:08 WBC 5.9 RBC 4.87 Hgb 13.6 Hct 43.3 MCV 88.9 MCH 27.9 MCHC 31.4 L RDW 14.8 Plt Count 173 MPV 8.6 Neut # (Auto) 4.3 Lymph # (Auto) 1.1 L Forrest # (Auto) 0.4 Eos # (Auto) 0.1 Baso # (Auto) 0.0 Absolute Nucleated RBC 0.00 Nucleated RBC % 0.0 PT 11.9 INR 1.1 APTT Sodium 131 L Potassium 3.9 Chloride 99 L Carbon Dioxide 26 Anion Gap 6.0 BUN 31 H Creatinine 0.8 Estimated GFR (MDRD) 71 L Glucose 289 H Lactic Acid Calcium 9.6 Total Bilirubin 0.6 AST 17 ALT 14 Alkaline Phosphatase 62 Total Creatine Kinase 72 Total Protein 7.7 Albumin 4.1 Globulin 3.6 Albumin/Globulin Ratio 1.1 Lipase 37 SARS-CoV-2 (PCR) 06/12/22 06/12/22 06/12/22 16:08 16:08 20:15 WBC RBC Hgb Hct MCV MCH MCHC RDW Plt Count MPV Neut # (Auto) Lymph # (Auto) Forrest # (Auto) Eos # (Auto) Baso # (Auto) Absolute Nucleated RBC Nucleated RBC % PT INR APTT 27.2 Sodium Potassium Chloride Carbon Dioxide Anion Gap BUN Creatinine Estimated GFR (MDRD) Glucose Lactic Acid 2.3 H Calcium Total Bilirubin AST ALT Alkaline Phosphatase Total Creatine Kinase Total Protein Albumin Globulin Albumin/Globulin Ratio Lipase SARS-CoV-2 (PCR) NOT DETECTED 06/12/22 06/13/22 20:15 03:11 WBC 6.3 RBC 5.13 Hgb 14.4 Hct 45.6 MCV 88.9 MCH 28.1 MCHC 31.6 L RDW 14.9 Plt Count 208 MPV 8.9 Neut # (Auto) Lymph # (Auto) Forrest # (Auto) Eos # (Auto) Baso # (Auto) Absolute Nucleated RBC Nucleated RBC % PT INR APTT 186.0 H* Sodium Potassium Chloride Carbon Dioxide Anion Gap BUN Creatinine Estimated GFR (MDRD) Glucose Lactic Acid Calcium Total Bilirubin AST ALT Alkaline Phosphatase Total Creatine Kinase Total Protein Albumin Globulin Albumin/Globulin Ratio Lipase SARS-CoV-2 (PCR) PD MEDICAL DECISION MAKING - ED course Complexity details: reviewed old records, reviewed results, re-evaluated patient, d/w patient ED course: Pt is 67 yo F with metastatic breast cancer presenting with rt leg pain. Pain x 5 days. Pt normally wheelchair bound however has been unable to perform even nominal activities of daily living such as transfers to bed or bath. EMS was needed to lift her from her bathtub. Patient in extreme distress of arrival. Does not take narcotic pain medication at home due to a reported "hypersensitivity" to medications. Initially refused pain control however eventually agreed to be medicated and received a dose of zofran and dilaudid. RLE with extreme tenderness to palpation from mid-thigh down. Weak but palpable pulses noted. Pt has know history of tight sided 'drop foot' and right foot shows some chronic muscle wasting. Labs obtained WNL or non actionable Femur xray demonstrates lytic lesions consistent with known metastatic disease. Ultrasound studies were limited due to body habits and pain however did demonstrate Deep venous thrombosis witin the Mid and distal femoral vein. Pt given multiple doses of dilaudid and remains unable to tolerate movement of her lower extremity 2/2 pain. Heparin Gtt started. Will be signing out to the oncoming physicain, please see their documentation. Departure - Departure Disposition: 02 Transfer Acute Care Hosp Clinical Impression: DVT (deep venous thrombosis), Metastatic breast cancer, Pain, Lytic bone lesion of femur
[2022-06-12 16:13] LABS: BASOPHILS % (AUTO) 0.3 %; EOSINOPHILS # (AUTO) 0.1 10^3/uL (0.0-0.7); HCT - HEMATOCRIT 43.3 % (37.0-47.0); HGB - HEMOGLOBIN 13.6 g/dL (12.0-16.0); LYMPHOCYTES # (AUTO) 1.1 10^3/uL (1.5-3.5); LYMPHOCYTES % (AUTO) 18.1 %; MEAN CORPUSCULAR HEMOGLOBIN 27.9 pg (27.0-31.0); MEAN CORPUSCULAR HGB CONC 31.4 g/dL (32.0-36.0); MEAN CORPUSCULAR VOLUME 88.9 fL (81.0-99.0); MEAN PLATELET VOLUME 8.6 fL (7.9-10.8); MONOCYTES # (AUTO) 0.4 10^3/uL (0.0-1.0); MONOCYTES % (AUTO) 6.9 %; NEUTROPHILS # (AUTO) 4.3 10^3/uL (1.5-6.6); NEUTROPHILS % (AUTO) 72.2 %; PLT - PLATELET COUNT 173 10^3/uL (130-450); RED BLOOD COUNT 4.87 10^6/uL (4.20-5.40); RED CELL DISTRIBUTION WIDTH 14.8 % (12.0-15.0); WHITE BLOOD COUNT 5.9 x10^3/uL (4.8-10.8)
[2022-06-12 16:19] LABS: INR 1.1 (0.8-1.2); PT - PROTHROMBIN TIME 11.9 secs (9.9-12.6)
[2022-06-12 16:26] LABS: ALBUMIN 4.1 g/dL (3.2-5.5); ALBUMIN/GLOBULIN RATIO 1.1 (1.0-2.2); BILIRUBIN,TOTAL 0.6 mg/dL (0.2-1.0); CALCIUM 9.6 mg/dL (8.5-10.3); CREATININE 0.8 mg/dL (0.4-1.0); POTASSIUM 3.9 mmol/L (3.5-5.0); TOTAL PROTEIN 7.7 g/dL (6.7-8.2)
[2022-06-12] MEDS ORDERED: iohexoL-300 100 ML VIAL ONE (17:22)
[2022-06-12] MEDS ORDERED: ONDANSETRON 4 MG/2 ML VIAL IVP STA ×2 (17:50→22:55)
[2022-06-12] MEDS ORDERED: HYDROmorphone 1 MG/ML CARPUJECT IVP STA ×3 (17:50→22:54)
--- NOTE | 2022-06-12 19:23 | Ultrasound Report ---
PROCEDURE: Duplex Ext Veins Right INDICATIONS: Pain, swelling, cancer TECHNIQUE: Real-time imaging, as well as color and pulse Doppler interrogation, were performed of the lower extr emity deep veins from the inguinal ligament to the popliteal fossa. COMPARISON: None. FINDINGS: There is deep venous thrombosis within the proximal and mid superficial femoral vein including occlus ori thrombus within the mid segment. The distal segment was not well visualized due to edema and body habitus and may be occluded. The popliteal vein appears patent. IMPRESSION: 1. Deep venous thrombosis within the proximal and mid superficial superficial femoral vein including occlusive thrombus within the mid segment. Thrombus within the distal segment is not excluded, with e valuation limited by body habitus and edema. Findings reported to Dr. Wolfe by the wood technologist at the conclusion of the study on 06/12. Reviewed by: Raza Hogan MD on 06/12/2022 7:22 PM PST Approved by: Raza Hogan MD on 06/12/2022 7:22 PM PST Station ID: [id number]
[2022-06-12] MEDS ORDERED: HEPARIN 25000UNITS/500ML (D5W) 25,000 UNIT/500 ML BAG IV SCH (20:00)
[2022-06-12 20:20] LABS: HCT - HEMATOCRIT 45.6 % (37.0-47.0); HGB - HEMOGLOBIN 14.4 g/dL (12.0-16.0); MEAN CORPUSCULAR HEMOGLOBIN 28.1 pg (27.0-31.0); MEAN CORPUSCULAR HGB CONC 31.6 g/dL (32.0-36.0); MEAN CORPUSCULAR VOLUME 88.9 fL (81.0-99.0); MEAN PLATELET VOLUME 8.9 fL (7.9-10.8); RED BLOOD COUNT 5.13 10^6/uL (4.20-5.40); RED CELL DISTRIBUTION WIDTH 14.9 % (12.0-15.0); WHITE BLOOD COUNT 6.3 x10^3/uL (4.8-10.8)
--- NOTE | 2022-06-13 00:54 | XRAY Report ---
PROCEDURE: Femur 2V RT INDICATIONS: pain, known met disease to femur TECHNIQUE: 4 views of the femur were acquired. COMPARISON: Bone scan 01/05/2022, CT right lower extremity 05/05/2017.. FINDINGS: Bones: No fractures or dislocations. There are multiple clustered lytic lesions within the right fe moral shaft with associated cortical erosions and thinning consistent with metastatic disease. This c orresponds to the focus of uptake on the prior bone scan. There is sclerosis of the partially visuali zed bony pelvis is demonstrated consistent with metastatic disease as seen on the prior CT. Soft tissues: No suspicious soft tissue calcifications or masses. IMPRESSION: 1. Clustered lytic lesions within the right femoral shaft consistent with metastatic disease. The fin dings correspond to focal uptake seen on prior bone scan. Reviewed by: Raza Mejias MD on 06/13/2022 12:53 AM PST Approved by: Raza Mejias MD on 06/13/2022 12:53 AM PST Station ID: [id number]
[2022-06-13] MEDS ORDERED: HYDROmorphone 1 MG/ML CARPUJECT IVP PRN (02:54)
--- NOTE | 2022-06-13 05:53 | ED Physician Documentation ---
ED Addendum - Addendum Addendum: 06/13/22 05:52 Patient with severe pain overnight requiring multiple IV doses of dilaudid. Unable to move the limb without severe pain. Would admit here but no beds available overnight due to RN floor staffing shortage. 06/13/22 06:[address]health physician [address] Zaman for admission for DVT with intractable pain requiring IV pain medication. Plan to admit pending bed availability. Disposition: admit [facility] Impression 1. DVT 2. intractable pain 3. metastatic cancer Condition stable
[2022-06-13] MEDS ORDERED: ONDANSETRON 4 MG/2 ML VIAL IVP PRN (06:37)
[2022-06-13] MEDS ORDERED: oxyCODONE 5 MG TABLET PO PRN ×2 (06:37→17:04)
[2022-06-13] MEDS ORDERED: SODIUM CHLORIDE FLUSH 0.9% 10 ML SYRINGE IVP PRN (06:37)
[2022-06-13] MEDS ORDERED: HYDROmorphone 0.5 MG/0.5 ML SYRINGE IVP PRN (06:37)
[2022-06-13] MEDS ORDERED: ACETAMINOPHEN 325 MG TABLET PO PRN (06:37)
--- NOTE | 2022-06-13 06:42 | PROVIDER PROGRESS NOTE ---
Diamond Grinder Note - Diamond Grinder Note Diamond Grinder Note: *Pending Admission* Ms Jack is a 67 yo F with hx metastatic breast ca. Presents with RLE pain. Found to have DVT. Pt has been initiated on heparin drip. Continues w intractable pain overnight in ER, requiring IV dilaudid. Requested admission for pain control. H&P pending evaluation by admitting physician in a.m.
[2022-06-13] MEDS ORDERED: KETOROLAC 15 MG/ML VIAL IVP STA (08:10)
[2022-06-13 08:58] LABS: HGB - HEMOGLOBIN 13.6 g/dL (12.0-16.0); MEAN CORPUSCULAR HEMOGLOBIN 28.4 pg (27.0-31.0); MEAN CORPUSCULAR HGB CONC 31.6 g/dL (32.0-36.0); MEAN CORPUSCULAR VOLUME 89.8 fL (81.0-99.0); MEAN PLATELET VOLUME 8.9 fL (7.9-10.8); RED BLOOD COUNT 4.79 10^6/uL (4.20-5.40); RED CELL DISTRIBUTION WIDTH 15.1 % (12.0-15.0); WHITE BLOOD COUNT 7.3 x10^3/uL (4.8-10.8)
--- NOTE | 2022-06-13 09:19 | ED Physician Documentation ---
ED Addendum - Addendum Addendum: 06/13/22 09:17 The patient was having pain again this morning. She had been several hours without any pain medicine. I noticed hospitalist orders think Tylenol and oxycodone as needed. I change the Tylenol to 4 times a day regular order. There was a Dilaudid half milligram every 2 hours if needed and noted that to the nurses and they were give her a dose of the as needed had been over 2 hours. She was preferring not to get the hydromorphone but was needing pain relief. I felt a single dose of Toradol would be reasonable with the heparin use. She was in preferring not to get that so we held the order. I presume the focus of treatment will be towards pain control with oral medication. Not clear that the choice of IV heparin versus Lovenox but defer that to the hospitalist. The patient is about to go to the floor.
[2022-06-13] MEDS: SODIUM CHLORIDE FLUSH 0.9% 10 ML SYRINGE IVP SCH ×2 (10:26→17:47)
[2022-06-13] MEDS: ACETAMINOPHEN 500 MG TABLET PO SCH ×4 (10:28→21:14)
--- NOTE | 2022-06-13 11:45 | PHARMACY PROGRESS NOTE ---
- Best Possible Medication History Admit Date and Time: 06/13/22 0637 Processed by: Pharmacy Medication History completed: Yes Patient Interview: Completed Secondary Source(s): Pharmacy records Pt takes 1200 units of ceylon cinnamon every morning. As the person ultimately responsible for medication therapy, providers are able to order a medication from an existing home medication list in [facility] via the "Reconcile Routine" prior to Confirmation of that medication by production support developer. Such practice is discouraged except when the physician, in their clinical judgment, deems that a medical need exists for a medication without regard to previous use.
[2022-06-13] MEDS: ENOXAPARIN 100 MG/ML SYRINGE SUBQ SCH ×2 (11:59→21:15)
--- NOTE | 2022-06-13 14:42 | HISTORY & PHYSICAL EXAMINATION ---
Chief Complaint - Chief Complaint Chief Complaint: DVT in RLE History of Present Illness - Admitted From Admitted From:: ED - History Obtained From Records Reviewed: From [facility] History obtained from: Patient Exam Limitations: None - History of Present Illness HPI Comment/Other: Ms. Jack is a 67 year old woman with history of metastatic breast cancer and diabetes mellitus that is being admitted for intractable pain with DVT of right mid and distal femoral vein. She developed right thigh pain five days ago, worse than baseline leg pain that is caused by metastatic breast cancer. She described the pain as constant, pulsating, and crampy. She went to see her naturopathic doctor Doni Kimble who did injections of dextrose, vitamin B12, and lidocaine in her back and leg. This did not help with pain. She initially thought the pain was due to something she had done and tried to rest, but the pain did not go gm y. She did not have chest pain or shortness of breath with the pain. She was attempting to out of her bathtub yesterday but was unable to as she did significant pain. She had been tolerating the pain until trying to get out of the bathtub. Due to the pain, she called EMS and realized she likely was having a blood clot. She was in significant distress in the ED due to the pain and was given IV dilaudid for pain. Venous duplex showed deep vein thrombosis in the proximal and mid superficial femoral vein including occlusive thrombus within the mid segment. Xray of the right femur did not show any fractures or dislocations, however lytic lesions consistent with metastatic disease were present. Heparin gtt was started for anti-coagulation. She was diagnosed with breast cancer in 2006 and metastatic spinal disease in 2016. She did chemotherapy for one month in 2016 and was given dexamethasone after completing treatment. She states that she developed neuropathy in both of her feet after completing the dexamethasone treatment and was falling more. She had difficulty walking, and due to these symptoms, she has been wheel-chair bound since. She started working with her naturopatic doctor who did injections of dextrose, Vitamin B12, and lidocaine. Her validation specialist stopped these injections due to her diagnosis of diabetes. She states she had been managing her pain on her own with Tylenol until it worsened in November of this year. She visited her oncologist Dr. Elly Bahena in January who checked bone scan and tumor marker. Tumor marker was elevated and bone scan revealed increased uptake in the spine, pelvis, right femur, tibia, and sternum. Dr. Bahena discussed treatment options with her, but Ms. Jack chose not to proceed with treatment. She has decided to still visit her validation specialist doctor, but will continue to regularly visit Dr. Bahena every 4 months. She also has a history of diabetes mellitus diagnosed in 2019 and was offered treatment with metformin, which she declined and instead chose to manage her diabetes with low-carb diet. 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 Living arrangement: At home (She lives by herself along with her dog in [place]) Living Situation: Alone (She was and in her early 20s. She does not have any kids. She had been taking care of herself and completing daily activities on her own. ) Social History Notes: Previously worked in [employer]. She has a history of alcohol use disorder and stopped drinking alcohol when she was 31 ye ars old. She does not have a history of tobacco use. - POLST Patient has POLST: Yes POLST Status: DNR (Patient states that she is DNR) Meds/Allgy - Home Medications Home Medications: Ambulatory Orders Medication Instructions Recorded Confirmed Acetaminophen [Tylenol Extra 500 - 1,500 mg PO Q4H PRN 02/27/17 06/13/22 Strength] Apixaban [Eliquis] 10 mg PO BID #40 tablet 06/13/22 Cholecalciferol [Vitamin D3] 100 mcg PO DAILY 06/13/22 06/13/22 Rivaroxaban [Xarelto] 15 mg PO BID #42 tablet 06/13/22 - Allergies Allergies/Adverse Reactions: Allergies Allergy/AdvReac Type Severity Reaction Status Date / Time codeine Allergy Emesis Verified 09/25/21 10:03 cortisone Allergy Unknown Verified 09/25/21 10:03 dexamethasone Allergy "makes me Verified 09/25/21 10:03 crazy" erythromycin base Allergy Rash Verified 09/25/21 10:03 [Erythromycin Base] hydrocortisone Allergy "makes me Verified 09/25/21 10:03 [From Cortizone-10] crazy" lorazepam [From Ativan] Allergy Hallucinati Verified 09/25/21 10:03 ons prednisone Allergy Unknown Verified 09/25/21 10:03 Sulfa (Sulfonamide Allergy Rash Verified 09/25/21 10:03 Antibiotics) trazodone Allergy Edema Verified 09/25/21 10:03 epinephrine AdvReac Unknown Verified 09/25/21 10:03 NSAIDS (Non-Steroidal AdvReac bleeding Verified 09/25/21 10:03 Anti-Inflamma Review of Systems - Constitutional Constitutional: reports: Chills. denies: Fever - Cardiovascular Cariovascular: denies: Chest pain - Respiratory Respiratory: denies: Cough, SOB at rest - Gastrointestinal Gastrointestinal: denies: Abdominal pain, Diarrhea, Nausea, Vomiting - Musculoskeletal Musculoskeletal: reports: Other (Right lower extremity pain). denies: Back pain - Neurological Neurological: denies: Dizziness - All Other Systems All Other Systems: reports: Reviewed and negative Exam - Vital Signs Reviewed Vital Signs: Yes Vital Signs: Vital Signs x48h Temp Pulse Pulse Resp BP BP Pulse Ox 06/13/22 13:00 36.9 C 92 18 134/70 H 94 06/13/22 10:00 36.8 C 89 17 138/76 H 97 06/13/22 09:34 06/13/22 09:00 90 17 155/86 H 96 06/13/22 08:00 92 18 151/91 H 95 O2 Flow Rate 06/13/22 13:00 06/13/22 10:00 06/13/22 09:34 2 06/13/22 09:00 2 06/13/22 08:00 2 - Physical Exam General Appearance: positive: Alert Eyes Bilateral: positive: Normal inspection ENT: positive: No signs of dehydration Neck: positive: Nml inspection. negative: Stiff neck Respiratory: positive: No respiratory distress, Breath sounds nml Cardiovascular: positive: Regular rate & rhythm Abdomen: positive: Non-tender, Nml bowel sounds, No distention Skin: positive: Color nml, No rash, Warm, Dry Extremities: positive: Other (Right thigh and calf are more swollen compared to left thigh and calf. Drop foot of right calf present. Bilateral feet are without ulcers. She expressed discomfort with mild movement of right leg during exam.) Neurologic/Psychiatric: positive: Sensation nml, Mood/affect nml Conclusion/Plan - Problem List (1) DVT (deep venous thrombosis) Conclusion/Plan: She has a DVT of the right proximal and mid superficial femoral vein including occlusive thrombus within the mid thrombus. The distal segment was not well visualized due to edema and body habitus, and was not excluded with venous duplex scan. DVT was likely caused by metastatic breast cancer and immobility due to being in a wheelchair. In the ED, she was given heparin gtt but was switched to Lovenox 100mg BID on admission. We will continue Lovenox while she is in the hospital and switch her to anti-coagulation with DOAC on discharge. PESI score was 99, placing her at intermediate risk and making her an appropriate candidate for outpatient management. She is not tachycardic and her O2 saturation has been between 94-97% on room air. We will continue to monitor her vital signs. She has had worsened right leg pain with the DVT and was given IV dilaudid while in the ED for pain. She has continued to receive IV dilaudid while in the hospital. She asked what her options for pain management would be and stated "I have sensitivities to many drugs." Review of previous records show that she has declined opioid medications from pain management clinics due to her history of alcoholism, but she states has not actually taken or tried opioid pain medications. When asked about the dilaudid, she noted that she has been davonte ating it well while in the hospital. She states that she cannot take gabapentin, lyrica, or NSAIDs due to previous sensitivities and hyperactivity with gabapentin. She was taking Tylenol for pain prior to hospitalization. She asked about Oxycodone and we suggested she can try it while in the hospital to see if she tolerates it and could use it for pain management upon discharge home. We trialed Oxycodone 5mg, but she told social work who talked with her that it felt like there was a burning sensation in her legs after taking it this afternoon. We will discontinue oxycodone and continue Dilaudid. (2) Metastatic breast cancer Conclusion/Plan: She was diagnosed with breast cancer in 2007 and metastatic cancer to the spine in 2017. She received radiation in 2017. She then developed neuropathy in her feet after radiation, and was unable to walk, and became wheelchair bound. She visited her oncologist Dr. Elly Bahena in January of this year due to increased right leg pain. CA 15-3 tumor marker levels were checked and bone scan was performed. Tumor marker was elevated and bone scan revealed increased uptake in the spine, pelvis, right femur, tibia, and sternum. Dr. Bahena discussed treatment options with her, but she chose not to proceed with treatment. She has decided to still visit her validation specialist doctor, but will continue to regularly visit Dr. Bahena every 4 months. Xray done yesterday in the ED of the right femur did not show any fractures or dislocations, however lytic lesions consistent with metastatic disease were present. It is likely that the pain now she is experiencing is due to the metastatic disease more than the DVT. We will discuss pain management with her and continue to treat her pain with a medication she is able to tolerate as she does not tolerate multiple pain medications. Previous to hospitalization, she was living by herself with her dog. She was completing all activities of daily living by herself except for picking up her dog's poop which she says worsened the pain. She did not have a plan in place in the event that she would need caregivers at home to assist her, but was open to talking with social work to get home health in place with Medicaid. (3) Diabetes mellitus Conclusion/Plan: She was diagnosed with diabetes in 2019 with an A1c of 10.0%. Her glucose today was 289. She opts for no medical treatment and previously declined metformin treatment at time of diagnosis and opted for management for low-carb diet. Review of records from oncologist showed that A1c improved with carb-controlled diet, but has worsened over the past year in which she agreed to go back on low- carb diet. (4) Peripheral neuropathy Conclusion/Plan: She has had peripheral neuropathy in both of her feet following radiation therapy for metastatic breast cancer to the spine in 2017. She describes the sensation in her feet like "sandpaper." She uses a wheelchair due to the neuropathy. - Lab Results Lab results reviewed: Yes Fish Bones: 06/13/22 08:52 06/12/22 16:08
[2022-06-13] MEDS: HYDROmorphone 2 MG TABLET PO PRN ×2 (17:47→22:39)
[2022-06-13] MEDS: CALCIUM CARBONATE CHEW 500 MG TABLET PO SCH (21:15)
[2022-06-14] MEDS: SODIUM CHLORIDE FLUSH 0.9% 10 ML SYRINGE IVP SCH ×2 (01:17→08:51)
[2022-06-14] MEDS: HYDROmorphone 2 MG TABLET PO PRN ×2 (02:43→06:44)
[2022-06-14] MEDS ORDERED: HYDROmorphone 2 MG/ML VIAL IVP PRN (04:24)
[2022-06-14] MEDS ORDERED: HYDROmorphone 0.5 MG/0.5 ML SYRINGE IVP PRN (04:32)
[2022-06-14] MEDS: CALCIUM CARBONATE CHEW 500 MG TABLET PO SCH (08:51)
[2022-06-14] MEDS: APIXABAN 5 MG TABLET PO SCH ×2 (08:51→08:52)
[2022-06-14] MEDS: ENOXAPARIN 100 MG/ML SYRINGE SUBQ SCH (08:51)
[2022-06-14] MEDS: ACETAMINOPHEN 500 MG TABLET PO SCH (08:51)
[2022-06-14 09:22] VITALS: BP 134/76
--- NOTE | 2022-06-14 10:38 | Discharge Plan ---
Discharge Plan Problem Reviewed?: Yes Disposition: Home, Self Care Condition: Fair Prescriptions: HYDROmorphone [Dilaudid] 1 mg PO Q4H #30 tablet Rivaroxaban [Xarelto] 15 mg PO BID #42 tablet Diet: Regular Activity Restrictions: Activity as Tolerated Shower Restrictions: No Driving Restrictions: Yes (no driving) Assistance Devices: Wheelchair Health Concerns: Unfortunately you have diffusely metastatic breast cancer to your spinal column, pelvis, and the long bones of your upper leg. The pain and discomfort from that is tolerable. A week before you were admitted to the hospital you developed worsening right leg pain. You finally could not take it anymore when you could not get in and out of your walk-in bathtub and called an ambulance. In the emergency room a plain film x-ray was done and you continue to have clustered moth ball appearance of the long bone in your right upper leg. No fracture. The emergency room doctor then did an ultrasound of your leg and found you to have a deep venous clot in that leg. You have been started on blood thinners and pain medicine. We did try 2 different kinds of medicine. 1 was oxycodone and 1 was Dilaudid. Dilaudid was better tolerated than oxycodone. Plan of Treatment: 1. You will be going home on 30 tablets of Dilaudid 2 mg. You can take half a milligram up to 4 times a day as needed. 2. All opioids like Dilaudid can cause constipation so make sure you take Colace every day or some type of prune or prune juice to help with that. 3. I do feel that your pain in your leg is due to a small fractures where the cancer is affecting the long bone. You, however, disagree and feel it is only due to the blood clot. 4. I did submit 2 different kinds of blood thinners to see which one was less expensive. I compared Xarelto and Eliquis. Xarelto is less expensive for you. You take Xarelto tablets at 15 mg tablet, twice a day with food, for the first 21 days. That would be starting today, June 14, until July 04. After July 04 you switch to Xarelto 20 mg tablet, once daily with food at the same time every day. 5. You will need to get these medication refills prescribed to you by your primary care provider. You are using Dr. Elly Bahena from the [facility] at the [facility] as your provider. However it would be more appropriate for you to reestablish yourself with Emma Garner to get medications such as these. 6. You stated that one of your goals was to remain as independent as possible in your own home. You have met with social work job titles here, and you will be applying with home and community services and the Medicaid program to get more caregiving in your home. Care Goals: At this time your stated care goals are to live there is normal survival rate with regards to your breast cancer. You have stated that there is a possibility you could be alive in 5 years. You would like to remain in your own home for as long as possible and independent as possible until then. Assessment: Patient is alert, oriented, and able to make her own decisions No Smoking: If you smoke, Please STOP! Call for help. Follow-up with: Emma Garner ARNP [Primary Care Provider] -
--- NOTE | 2022-06-14 10:54 | DISCHARGE SUMMARY ---
Discharge Summary Admit Date: 06/13/22 Discharge Date: 06/14/22 Discharging Provider: Sophie Sparrow MD Primary Care Provider: LUCAS Arteaga Code Status: Do Not Attempt Resuscitation Condition at Discharge: Fair Discharge Disposition: 01 Home, Self Care - DIAGNOSES Discharge Diagnoses with Status of Each Condition: 1. DVT 2. Metastatic breast cancer 3. Type 2 diabetes mellitus, uncontrolled with hyperglycemia, with complication of neuropathy, not on long-term insulin 4. Peripheral neuropathy 5. Intractable pain on admission now improved - HPI History of Present Illness: Ms. Jack is a 67 year old woman with history of metastatic breast cancer and diabetes mellitus that is being admitted for intractable pain with DVT of right mid and distal femoral vein. She developed right thigh pain five days ago, worse than baseline leg pain that is caused by metastatic breast cancer. She described the pain as constant, pulsating, and crampy. She went to see her naturopathic doctor Doni Kimble who did injections of dextrose, vitamin B12, and lidocaine in her back and leg. This did not help with pain. She initially thought the pain was due to something she had done and tried to rest, but the pain did not go away. She did not have chest pain or shortness of breath with the pain. She was attempting to out of her bathtub yesterday but was unable to as she did significant pain. She had been tolerating the pain until trying to get out of the bathtub. Due to the pain, she called EMS and realized she likely was having a blood clot. She was in significant distress in the ED due to the pain and was given IV dilaudid for pain. Venous duplex showed deep vein thrombosis in the proximal and mid superficial femoral vein including occlusive thrombus within the mid segment. Xray of the right femur did not show any fractures or dislocations, however lytic lesions consistent with metastatic disease were present. Heparin gtt was started for anti-coagulation. She was diagnosed with breast cancer in 2006 and metastatic spinal disease in 2017. She did chemotherapy for one month in 2017 and was given dexamethasone after completing treatment. She states that she developed neuropathy in both of her feet after completing the dexamethasone treatment and was falling more. She had difficulty walking, and due to these symptoms, she has been wheel-chair bound since. She started working with her naturopatic doctor who did injections of dextrose, Vitamin B12, and lidocaine. Her vasc tech stopped these injections due to her diagnosis of diabetes. She states she had been managing her pain on her own with Tylenol until it worsened in November of this year. She visited her oncologist Dr. Elly Bahena in January who checked bone scan and tumor marker. Tumor marker was elevated and bone scan revealed increased uptake in the spine, pelvis, right femur, tibia, and sternum. Dr. Bahena discussed treatment options with her, but Ms. Jack chose not to proceed with treatment. She has decided to still visit her vasc tech doctor, but will continue to regularly visit Dr. Bahena every 4 months. She also has a history of diabetes mellitus diagnosed in 2019 and was offered treatment with metformin, which she declined and instead chose to manage her diabetes with low-carb diet. 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 : reports: None HEENT: reports: None Psych: reports: Anxiety Musculoskeletal: reports: None, Fibromyalgia Derm: reports: Other MRSA Hx?: No - Past Surgical History General: reports: Cholecystectomy, Appendectomy /PACKER DRIED BEEF: reports: Mastectomy HEENT: reports: Tonsil/Adenoidectomy - CONSULTS | PROCEDURES Procedures: Venous duplex Doppler which shows DVT in the right leg Femur x-ray which continues to show metastatic disease and sclerotic bone in the femur of the right leg compatible with the nuclear medicine uptake imaging seen on prior studies - HOSPITAL COURSE Hospital Course: The patient presents with severe right leg pain that was causing her to scream out in pain. I felt that she had intractable pain due to metastatic disease. She is convinced that this pain is from a DVT and not from the sclerotic femur. She is seeing a vasc tech who has been attempting to control this disease by doing "glucose injections" along the back of her hamstring where the "nerve is". In either case, she was very leery of using opioids. I left it completely open ended as to how she wanted to manage her own pain. She quickly came to realize the Tylenol or nonsteroidals were not going to cut it. And she reluctantly agreed to use opioids. Dilaudid IV worked well for her. I did try to use oxycodone 5 mg tablets but she said that it left her feet feeling like they were "on fire". And they really did not help with the pain. So I changed her from Dilaudid IV to Dilaudid p.o. A quarter of a 2 mg tablet helped but did not cut the pain as nicely as she liked. A half of a 2 mg tablet did. As such pain is lower to an acceptable level at half of the 2 mg Dilaudid tablet to be taken up to 4 times a day as needed. She is very concerned about remaining independently in her own home. She was able to meet with health care social worker and they were able to identify opportunities where she would probably qualify for home community services caregivers through the Medicaid program. She will start that process. I have asked her to plan for the inevitability of her unable to take care of her self at home at all. She says that she would "never want to live in a half-way". While I understand that sentiment, I asked her to at least plan different scenarios of how she would be able to get care. Whether she stayed home with the help of the Medicaid program, or needed to go to a half-way for terminal illness with the help of the Medicaid program. At this point she is not interested in seeking radiation therapy nor further chemotherapy or horm onal manipulation for her metastatic breast cancer. She also wants us to note that she is a DO NOT RESUSCITATE. However she will seek chief counsel from her oncologist, Dr. Elly Bahena. The case was discussed with Dr. Bahena. The patient is discharged in fair condition with a guarded prognosis. I am fear ful she will have a pathologic fracture but she reassures me that she is wheelchair-bound and her risk of fracture is low. Temperature is 36.5. Heart rate 88. Blood pressure 134/76. Respirations 16. 98% on room air. She is a 5 foot 5 inch chatty female who is 100.5 kg. She went from screaming every time you touched her leg to and now being comfortable but wary of moving the leg. Lungs are clear. Regular rate and rhythm. Abdomen benign. Extremities with no edema but large in their muscle mass. She is able to stand to weight-bear, and transfer and pivot. I have asked her to please follow-up with oncology. Also follow-up with her primary care provider who will need to change her prescriptions. As well as refill prescriptions. Dilaudid is 30 tablets. I did submit both Xarelto and Eliquis to the pharmacy and Xarelto is less expensive. Xarelto will be 15 mg twice a day with food for 21 days. And then she will transition to 20 mg once a day with food at the same time every day. I would anticipate that anticoagulation will be indefinite and its duration due to concurrent tumor burden. The patient is not convinced that her peripheral neuropathy is from uncontrolled diabetes. She feels that it is from the chemo that she received for breast cancer. She is also not wanting to do anything for her diabetes at this time. She does not want medication nor does she want diabetic education - ALLERGIES Allergies/Adverse Reactions: Allergies Allergy/AdvReac Type Severity Reaction Status Date / Time codeine Allergy Emesis Verified 09/25/21 10:03 cortisone Allergy Unknown Verified 09/25/21 10:03 dexamethasone Allergy "makes me Verified 09/25/21 10:03 crazy" erythromycin base Allergy Rash Verified 09/25/21 10:03 [Erythromycin Base] hydrocortisone Allergy "makes me Verified 09/25/21 10:03 [From Cortizone-10] crazy" lorazepam [From Ativan] Allergy Hallucinati Verified 09/25/21 10:03 ons prednisone Allergy Unknown Verified 09/25/21 10:03 Sulfa (Sulfonamide Allergy Rash Verified 09/25/21 10:03 Antibiotics) trazodone Allergy Edema Verified 09/25/21 10:03 epinephrine AdvReac Unknown Verified 09/25/21 10:03 NSAIDS (Non-Steroidal AdvReac bleeding Verified 09/25/21 10:03 Anti-Inflamma - MEDICATIONS Home Medications: Ambulatory Orders Medication Instructions Recorded Confirmed Acetaminophen [Tylenol Extra 500 - 1,500 mg PO Q4H PRN 02/27/17 06/13/22 Strength] Cholecalciferol [Vitamin D3] 100 mcg PO DAILY 06/13/22 06/13/22 Rivaroxaban [Xarelto] 15 mg PO BID #42 tablet 06/13/22 Acetaminophen [Tylenol] 500 mg PO QID tab 06/14/22 Calcium Carbonate [Tums (Calcium 500 mg PO BID tab 06/14/22 Carbonate 500mg)] HYDROmorphone [Dilaudid] 1 mg PO Q4H #30 tablet 06/14/22 - LABS Result Diagrams: 06/13/22 08:52 06/12/22 16:08
== END 2022-06-14 11:33 | disposition home or self-care (01) ==
LOC: ED 15:34 → MS3 06-13 06:37
PROVIDERS: ADMIT Student in an Organized Health Care Education/Training Program; ATTEND Student in an Organized Health Care Education/Training Program
DX: I82.411 Acute embolism and thrombosis of right femoral vein (principal); E11.65 Type 2 diabetes mellitus with hyperglycemia; E11.42 Type 2 diabetes mellitus with diabetic polyneuropathy; C50.919 Malignant neoplasm of unspecified site of unspecified female breast; C79.51 Secondary malignant neoplasm of bone; K21.9 Gastro-esophageal reflux disease without esophagitis; F41.9 Anxiety disorder, unspecified; M79.10 Myalgia, unspecified site; Z20.822 Contact with and (suspected) exposure to COVID-19; Z66 Do not resuscitate; Z79.01 Long term (current) use of anticoagulants; Z79.899 Other long term (current) drug therapy; Z80.3 Family history of malignant neoplasm of breast; Z81.1 Family history of alcohol abuse and dependence; Z82.49 Family history of ischemic heart disease and other diseases of the circulatory system; Z90.10 Acquired absence of unspecified breast and nipple; Z90.49 Acquired absence of other specified parts of digestive tract; Z92.3 Personal history of irradiation; Z99.3 Dependence on wheelchair
CPT/HCPCS: 36415; 73552; 80053; 82550; 83605; 83690; 85025; 85027; 85610; 85730; 87635; 93971; 96365; 96366; 96367; 96372; 96375; 96376; 99283; 99285; A9270; G0378; J0131; J1170; J1650; Q9967

== ENCOUNTER 2022-06-17 15:19 | Outpatient (CLI) | payer MEDICARE, MEDICAID | END 2022-06-17 23:59 | disposition short-term general hospital (02) | LOC: EMS 15:19 | DX: S79.921A Unspecified injury of right thigh, initial encounter (principal); W01.198A Fall on same level from slipping, tripping and stumbling with subsequent striking against other object, initial encounter; Y92.009 Unspecified place in unspecified non-institutional (private) residence as the place of occurrence of the external cause; Z79.01 Long term (current) use of anticoagulants | CPT/HCPCS: A0425; A0427 ==

== ENCOUNTER 2022-10-30 13:21 | Outpatient (CLI) | payer MEDICARE, MEDICAID ==
--- NOTE | 2022-10-30 13:59 | XRAY Report ---
PROCEDURE: Femur 2V RT INDICATIONS: RIGHT FEMUR FX TECHNIQUE: 2 views of the femur were acquired. COMPARISON: June 12, 2022 FINDINGS: Bones: No fractures or dislocations. Since the prior examination patient has undergone hip pinning and femur rodding. The permeative proce ss involving the mid diaphysis of the right femur most suggestive of a neoplastic process has increas ed in size from the prior examination. There appears to be subtle pathologic fracture through this. There are some subtle areas of lucency involving the distal left femoral metaphysis and proximal tibi al metaphysis also worrisome for small metastatic foci. Soft tissues: No suspicious soft tissue calcifications or masses. Atherosclerotic vascular calcific ations are noted. IMPRESSION: 1. Status post hip pinning and femur rodding. 2. The permeative lesion with what appears to be a subtle pathologic fracture through it involving th e mid diaphysis of the patient's right femur appears to have moderately increased in size from prior plain film evaluation. 3. Subtle areas of lucency in the distal femoral metaphysis and proximal tibial metaphysis worrisome for multiple small metastatic foci. Reviewed by: Arnel Ya MD on 10/30/2022 1:57 PM PDT Approved by: Arnel Ya MD on 10/30/2022 1:57 PM PDT Station ID: [id number]
== END 2022-10-30 13:22 | disposition home or self-care (01) ==
LOC: DI 13:21
PROVIDERS: ATTEND Orthopaedic Surgery
DX: M84.551D Pathological fracture in neoplastic disease, right femur, subsequent encounter for fracture with routine healing (principal); M89.9 Disorder of bone, unspecified

== ENCOUNTER 2023-01-13 06:52 | Outpatient (CLI) | payer MEDICARE, MEDICAID | END 2023-01-13 23:59 | disposition critical access hospital (66) | LOC: EMS 06:52 | DX: M79.604 Pain in right leg (principal); C79.51 Secondary malignant neoplasm of bone | CPT/HCPCS: A0425; A0429 ==

== ENCOUNTER 2023-01-13 07:02 | Emergency (ER) | payer MEDICARE, MEDICAID ==
[2023-01-13] MEDS ORDERED: oxyCODONE 5 MG TABLET PO STA ×2 (07:41→11:24)
--- NOTE | 2023-01-13 07:51 | ED Physician Documentation ---
History of Present Illness - Stated complaint Stated Complaint: LEG PX - Chief complaint Chief Complaint: Ext Problem - History obtained from History obtained from: Patient - History of Present Illness Timing: Chronic Pain level max: 8 Pain level now: 8 - Additonal information Additional information: 67 year old female with chronic R leg pain. She has a history of metastatic breast CA with mets to her bones. She has a history of a pathological R femur fracture and underwent IM fixation. Patient states that she does not want to have any more chemotherapy, radiation or any more treatment for her cancer. She states that she only takes Tylenol for pain at home. She states she cannot take NSAIDs because they make her "bleed". She states that she does not want to take narcotics because she does not like the way they make her feel. She has tried Dilaudid, fentanyl and did not like the way she felt on either of those. She states that gabapentin, Lyrica, amitriptyline, nortriptyline all made her feel "crazy" as well. She is not having spasms. She states she has neuropathy in the bilateral lower extremities. She states that her oncologist had talked about hospice or palliative care, she has not been referred for this yet however. Denies any falls or trauma. 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 : None HEENT: None Psych: Anxiety Musculoskeletal: None, Fibromyalgia Derm: Other - Past Surgical History Past Surgical History: Yes General: Cholecystectomy, Appendectomy Ortho: Other /ELEMENTARY READING SPECIALIST: Mastectomy HEENT: Tonsil/Adenoidectomy - Present Medications Home Medications: Ambulatory Orders Medication Instructions Recorded Confirmed Acetaminophen [Tylenol Extra 500 - 1,500 mg PO Q4H PRN 02/27/17 11/02/22 Strength] Cholecalciferol [Vitamin D3] 100 mcg PO DAILY 06/13/22 11/02/22 Rivaroxaban [Xarelto] 15 mg PO BID #42 tablet 06/13/22 11/02/22 Acetaminophen [Tylenol] 500 mg PO QID tab 06/14/22 11/02/22 Calcium Carbonate [Tums (Calcium 500 mg PO BID tab 06/14/22 11/02/22 Carbonate 500mg)] HYDROmorphone [Dilaudid] 1 mg PO Q4H #30 tablet 06/14/22 11/02/22 Tamoxifen [Nolvadex] 20 mg PO DAILY 11/01/22 11/02/22 oxyCODONE [Roxicodone] 2.5 - 5 mg PO Q6H PRN #20 tablet 01/13/23 MDD 6 - Allergies Allergies/Adverse Reactions: Allergies Allergy/AdvReac Type Severity Reaction Status Date / Time codeine Allergy Emesis Verified 09/25/21 10:03 cortisone Allergy Unknown Verified 09/25/21 10:03 dexamethasone Allergy "makes me Verified 09/25/21 10:03 crazy" erythromycin base Allergy Rash Verified 09/25/21 10:03 [Erythromycin Base] hydrocortisone Allergy "makes me Verified 09/25/21 10:03 [From Cortizone-10] crazy" lorazepam [From Ativan] Allergy Hallucinati Verified 09/25/21 10:03 ons prednisone Allergy Unknown Verified 09/25/21 10:03 Sulfa (Sulfonamide Allergy Rash Verified 09/25/21 10:03 Antibiotics) trazodone Allergy Edema Verified 09/25/21 10:03 epinephrine AdvReac Unknown Verified 09/25/21 10:03 NSAIDS (Non-Steroidal AdvReac bleeding Verified 09/25/21 10:03 Anti-Inflamma - Social History Does the pt smoke?: No Smoking Status: Never smoker Does the pt drink ETOH?: No Does the pt have substance abuse?: No - Immunizations Immunizations are current?: Yes - POLST Patient has POLST: Yes POLST Status: DNR PD ED PE NORMAL - Vitals Vital signs reviewed: Yes - General General: Alert and oriented X 3, No acute distress - HEENT HEENT: Moist mucous membranes - Neck Neck: Supple, no meningeal sign - Cardiac Cardiac: RRR, Strong equal pulses - Respiratory Respiratory: No respiratory distress, Clear bilaterally - Abdomen Abdomen: Soft, Non tender, Non distended - Back Back: No spinal TTP - Derm Derm: Warm and dry - Extremities Extremities: Other (diffusely TTP over the B LE. NVI. no swelling. no skin changes) - Neuro Neuro: Alert and oriented X 3 Results - Vitals Vitals: Vital Signs - 24 hr 01/13/23 01/13/23 07:12 09:46 Temperature 36.6 C Heart Rate 79 79 Respiratory 18 16 Rate Blood Pressure 148/73 H 126/80 O2 Saturation 100 98 Oxygen O2 Source Room air - Rads (name of study) Right femur x-ray Relevant Findings:: Final report received, See rad report PD Medical Decision Making - ED course Complexity details: reviewed results, re-evaluated patient, considered differential, d/w patient ED course: 67-year-old female with metastatic breast cancer, does not want to undergo further treatment with chemotherapy or radiation. She eventually did accept pain medication and was given 2.5 mg of oxycodone which she states controlled her pain well. She would like to try this at home and see how she progresses. She also requested a hospice referral be placed, this was done for her. She reportedly has been given less than 2 years to live by her oncologist, Dr. Bahena. We will prescribe pain medication for home and have her follow-up with her doctor on Sunday. No emergency medical condition at this time. Patient counseled regarding signs and symptoms for which I believe and urgent re- evaluation would be necessary. Patient with good understanding of and agreement to plan and is comfortable going home at this time This document was made in part using voice recognition software. While efforts are made to proofread this document, sound alike and grammatical errors may occur. Departure - Departure Disposition: Home, Self Care Clinical Impression: Lytic bone lesion of femur, Pain of metastatic malignancy Condition: Good Instructions: ED Chronic Pain Management Follow-Up: Nikolas Bahena MD [Physician No Access] - Nikolas Bahena MD [Provider Admit Priv/Credential] - Betsey Michael PA-C [Primary Care Provider] - Within 1 week Prescriptions: oxyCODONE [Roxicodone] 2.5 - 5 mg PO Q6H PRN #20 tablet MDD 6 PRN Reason: pain Comments: Your prescriptions were sent to the [facility] pharmacy in [place]. Please follow-up with your doctor for further care. A hospice referral was placed today as well. They should contact you early next week. Please return if you worsen. I am prescribing a short course of narcotic pain medication for you. These are potentially dangerous and addictive medications that should be used carefully. These medications may constipate you. Take an najy-zxy-tmtnbmb stool softener (docusate) twice daily with plenty of water while taking these medications. If you go 24 hours without a bowel movement, take [id number]-nad-cflhabp miralax, per package instructions. Do not drink or drive while taking these medications. If you received narcotic or sedating medications while in the emergency department, do not drive for 24 hours. Store this medication in a safe, secure place and out of reach of children. It is a violation of federal law to give or sell this medication to another p erson or to use in a manner other than prescribed. The ED will not refill narcotic prescriptions, including prescriptions lost or stolen. To dispose of unwanted medications: 1. [facility] at [address] in [place] has a medication drop box. They accept prescription medications (in pill form) Sunday through Sunday 9:00 a.m. to 5:00 p.m. 2. The [facility] [employer] accepts prescription medications (in pill form only) for disposal year round. Call for more information. 3. Contact the [facility] for the next [facility] sponsored prescription drug collection event. , [phone], or [phone];
--- NOTE | 2023-01-13 09:10 | XRAY Report ---
PROCEDURE: Femur 2V RT INDICATIONS: R leg pain, met cancer TECHNIQUE: 2 views of the femur were acquired. COMPARISON: Right femur radiographs 10/30/2022 and 02/13/2022 FINDINGS: Bones: Postsurgical changes again seen with intramedullary nail within the femur with proximal and d istal locking screws. Permeative destructive lesion within the proximal fibular shaft has increased i n size when compared to the radiographs from 10/30/2022 Soft tissues: Arterial vascular calcifications are present. IMPRESSION: Stable postsurgical changes in the right femur. Previously seen permeative osseous lesion within the proximal femoral shaft has increased in extent and degree of osseous destruction when compared to the exam from 10/30/2022. Reviewed by: Joon Back MD on 01/13/2023 9:08 AM PDT Approved by: Joon Back MD on 01/13/2023 9:08 AM PDT Station ID: [id number]
[2023-01-13] MEDS: oxyCODONE 5 MG TABLET PO STA ×2 (09:30→09:45)
[2023-01-13 12:34] VITALS: BP 130/69
== END 2023-01-13 12:32 | disposition home or self-care (01) ==
LOC: EDUNIT# → ED 07:02
DX: G89.3 Neoplasm related pain (acute) (chronic) (principal); C50.919 Malignant neoplasm of unspecified site of unspecified female breast; M79.604 Pain in right leg; C79.51 Secondary malignant neoplasm of bone; Z66 Do not resuscitate
CPT/HCPCS: 73552; 99283; 99284; A9270